=== PATIENT | female | born 1945 | race Two or more races ===

== ENCOUNTER 2019-09-15 15:06 | Inpatient (IN) | payer MEDICARE, MEDICAID ==
[~2019-09-15] VITALS: Ht 162.6 cm; Wt 64.0 kg
--- NOTE | 2019-09-15 15:10 | NUR ---
ED Nurse Note: Patient brought into ED from [facility] by RA 26 due to abnormal labs - hgb of 5.0. patient noted to be febrile, 99.9F oral and 100.[address] Mo. Patient placed on a hospital gown. Patient on a environmental monitoring specialist. patient on a room air O2 sat was 70's, patient is now on 3L NC, patient's O2 sat is 100%. patient noted to be edematous on bilateral upper extremities. 22G IV site noted on the right hand, patent, flushing. patient has abdoulaye on the left upper arm due to left humurs fracture noted from the medical records. patient also noted to have left breast lump/mass noted. patient appears to be lethargic, opens eyes spontaneously, but does not answer question appropriately.
[2019-09-15] MEDS ORDERED: COLACE100 MG ORAL (15:13)
[2019-09-15] MEDS ORDERED: ACETAMINOPHEN325 M1 ORAL (15:13)
[2019-09-15] MEDS ORDERED: AVAPRO150 MG ORAL (15:13)
[2019-09-15] MEDS ORDERED: MILK OF MA2400 MG/10 ORAL (15:24)
[2019-09-15] MEDS ORDERED: NEXIUM40 MG ORAL (15:24)
[2019-09-15] MEDS ORDERED: HUMALOG100 UNIT/4 SUBQ (15:24)
[2019-09-15] MEDS ORDERED: GABAPENTIN100 MG ORAL (15:24)
[2019-09-15] MEDS ORDERED: SENNA-S TABLET1 EACH PO (15:24)
[2019-09-15] MEDS ORDERED: MAGNESIUM CITR296 M1 PO (15:24)
[2019-09-15] MEDS ORDERED: GLUCAGON EMERGEN1 MG IJ (15:24)
[2019-09-15] MEDS ORDERED: JANUVIA25 MG ORAL (15:24)
[2019-09-15] MEDS ORDERED: BISACODYL5 MG ORAL (15:24)
[2019-09-15] MEDS ORDERED: LACTULOSE20 GM/301 ORAL (15:24)
[2019-09-15 15:38] VITALS: BP 102/58
--- NOTE | 2019-09-15 15:41 | NUR ---
ED Nurse Note: xray at bedside.
[2019-09-15 15:48] LABS: HEMATOCRIT 16.9 % (37.0-47.0); MEAN CORPUSCULAR VOLUME 81 FL (80-99); PLATELET COUNT 251 K/UL (150-450); RED BLOOD COUNT 2.09 M/UL (4.20-5.40); WHITE BLOOD COUNT 11.3 K/UL (4.8-10.8)
--- NOTE | 2019-09-15 15:53 | Emergency Room Report ---
History of Present Illness General Chief Complaint: Abnormal Labs Source: Patient Present Illness HPI This patient presents from a sn[facility] facility. The patient has multiple chronic medical problems. The patient recently is found to have metastatic breast cancer and profound anemia related to a bleeding polyp in her duodenum. She also recently suffered a pathologic fracture of her humerus and had to undergo ORIF. The patient presents today from the snf facility for worsening anemia and ams. Per report, the patient's hemoglobin was 6.2 and then 5.0. The patient is a very poor historian and is unable to give me any type of history. I am unsure if this is baseline for this patient or if this is related to an acute illness. The patient is febrile. She also presents from a snf facility which is high risk for COVID-19. Allergies: Coded Allergies: No Known Allergies (Unverified , 09/15/19) COVID-19 Screening Contact w/high risk pt: Yes Recent Travel to affected area: No Experienced COVID-19 symptoms?: Yes COVID-19 symptoms experienced: Fever (T>100.4F or >38C) COVID-19 Testing performed SLOPE HOIST OPERATOR: No Patient History Past Medical History: see triage record, DM, HTN, seizures, other - Metastatic breast CA Social History: Denies: smoking, alcohol use, drug use Reviewed Nursing Documentation: PMH: Agreed; PSxH: Agreed Nursing Documentation-PMH Past Medical History: No History, Except For Hx Hypertension: Yes Hx Diabetes: Yes Hx Seizures: Yes Review of Systems All Other Systems: limited Physical Exam Vital Signs Date Time Temp Pulse Resp B/P (MAP) Pulse Ox O2 Delivery O2 Flow Rate FiO2 09/15/19 15:06 100.6 107 16 83/42 (56) 95 Room Air Sp02 EP Interpretation: reviewed, abnormal General Appearance: no apparent distress, GCS 15, non-toxic, other - Awake, responsive., Chronically Ill Head: normocephalic, atraumatic ENT: no angioedema Neck: normal inspection, full range of motion Respiratory: chest non-tender, lungs clear, normal breath sounds, no respiratory distress, no retraction, no accessory muscle use Cardiovascular #1: no edema, tachycardia Gastrointestinal: normal inspection, non-distended Rectal: deferred Musculoskeletal: back normal, normal range of motion, swelling - BUE swelling Neurologic: alert, responsive, speech normal, no focal defects Psychiatric: mood/affect normal Skin: other - Pale Medical Decision Making Diagnostic Impression: Primary Impression: Suspected 2019 novel coronavirus infection Additional Impressions: Anemia Metastatic cancer Fever Azotemia GI bleed Hypernatremia ER Course I suspect this patient has COVID-19. The patient is febrile in from a high risk facility. She has findings on chest x-ray that are concerning for COVID- 19. She also has an underlying metastatic cancer and progressive anemia that is believed to be related to a bleeding polyp that had been previously identified as a bleeding source. The patient was given gentle IV fluids and started on a blood transfusion. The patient's pulmonary status remained stable only requiring 3 L of nasal cannula to maintain oxygen saturations at 100%. The patient was given broad-spectrum antibiotics for possible bacterial pneumonia, given that the COVID-19 test is pending. Given this patient's terminal cancer and multiple chronic medical problems, she has a very poor prognosis. This patient is critically ill. This patient required complex medical decision- making, aggressive intervention, extensive laboratory workup and monitoring. Critical care time: 40 minutes. This patient was evaluated in the context of the global COVID-19 pandemic, which necessitated consideration that the patient might be at risk for infection with the [id number] virus that causes COVID-19. Institutional protocols and algorithms that pertain to the evaluation of patients at risk for COVID-19 and the state of rapid change based on information released by multiple regulatory bodies including the CDC and federal and state organizations. These policies and algorithms were followed during the patient' s care in the ED. Laboratory Tests Test 09/15/19 15:20 09/15/19 15:24 Urine Color Pending Urine Appearance Pending Urine pH Pending Urine Specific [place] Pending Urine Protein Pending Urine Glucose (UA) Pending Urine Ketones Pending Urine Blood Pending Urine Nitrite Pending Urine Bilirubin Pending Urine Urobilinogen Pending Urine Leukocyte Esterase Pending White Blood Count 11.3 K/UL (4.8-10.8) H Red Blood Count 2.09 M/UL (4.20-5.40) L Hemoglobin 5.2 G/DL (12.0-16.0) *L Hematocrit 16.9 % (37.0-47.0) L Mean Corpuscular Volume 81 FL (80-99) Mean Corpuscular Hemoglobin 25.0 PG (27.0-31.0) L Mean Corpuscular Hemoglobin Concent 31.0 G/DL (32.0-36.0) L Red Cell Distribution Width 23.0 % (11.6-14.8) H Platelet Count 251 K/UL (150-450) Mean Platelet Volume 7.1 FL (6.5-10.1) Neutrophils (%) (Auto) % (45.0-75.0) Lymphocytes (%) (Auto) % (20.0-45.0) Monocytes (%) (Auto) % (1.0-10.0) Eosinophils (%) (Auto) % (0.0-3.0) Basophils (%) (Auto) % (0.0-2.0) Neutrophils % (Manual) Pending Lymphocytes % (Manual) Pending Platelet Estimate Pending Platelet Morphology Pending Prothrombin Time 12.8 SEC (9.30-11.50) H Prothrombin Time INR 1.2 (0.9-1.1) H Activated Partial Thromboplast Time 23 SEC (23-33) D-Dimer 13.50 mg/L FEU (0.00-0.49) H Sodium Level 148 MMOL/L (136-145) H Potassium Level 4.3 MMOL/L (3.5-5.1) Chloride Level 112 MMOL/L (98-107) H Carbon Dioxide Level 22 MMOL/L (21-32) Anion Gap 14 mmol/L (5-15) Blood Urea Nitrogen 82 mg/dL (7-18) H Creatinine 1.3 MG/DL (0.55-1.30) Estimated Glomerular Filtration Rate 40.1 mL/min (>60) Glucose Level 222 MG/DL (74-106) H Lactic Acid Level 3.20 mmol/L (0.4-2.0) H Calcium Level 8.4 MG/DL (8.5-10.1) L Phosphorus Level 4.8 MG/DL (2.5-4.9) Magnesium Level 2.3 MG/DL (1.8-2.4) Total Bilirubin 0.3 MG/DL (0.2-1.0) Aspartate Amino Transferase (AST) 254 U/L (15-37) H Alanine Aminotransferase (ALT) 23 U/L (12-78) Alkaline Phosphatase 262 U/L (46-116) H Total Creatine Kinase 262 U/L (26-308) Creatine Kinase MB < 0.5 NG/ML (0.0-3.6) Creatine Kinase MB Relative Index 0.1 Troponin I 0.022 ng/mL (0.000-0.056) C-Reactive Protein, Quantitative Pending Total Protein 5.4 G/DL (6.4-8.2) L Albumin 1.9 G/DL (3.4-5.0) L Globulin 3.5 g/dL Albumin/Globulin Ratio 0.5 (1.0-2.7) L EKG Diagnostic Results Rate: normal Rhythm: NSR ST Segments: no acute changes Rhythm Strip Diag. Results EP Interpretation: yes Rate: 100's Rhythm: no PVC's, no ectopy, other - S.tachycardia Chest X-Ray Diagnostic Results Chest X-Ray Diagnostic Results : Chest X-Ray Ordered: Yes # of Views/Limited/Complete: 1 View Indication: Shortness of Breath EP Interpretation: Yes Interpretation: other - Diffuse patchy opacites bilaterally. Circular luceny in the RLL of the lung. +fluid in fissures of the R. Impression: Other - See Above Electronically Signed by: Juliana Mo DO Last Vital Signs Date Time Temp Pulse Resp B/P (MAP) Pulse Ox O2 Delivery O2 Flow Rate FiO2 09/15/19 15:38 99.9 101 15 102/58 100 Room Air Disposition: ADMITTED INPATIENT Condition: Critical Referrals: NON PHYSICIAN (PCP) Juliana Mo DO September 15, 2019 15:53
--- NOTE | 2019-09-15 15:56 | NUR ---
ED Nurse Note: daughter Denia [phone]
[2019-09-15 16:00] LABS: INR 1.2 (0.9-1.1)
[2019-09-15] MEDS ORDERED: Acetaminophen 500mg (ES) tab ORAL ONE (16:00)
[2019-09-15] MEDS ORDERED: Azithromycin 500 MG in NS 275 ML IV ONE (16:00)
[2019-09-15] MEDS ORDERED: cefTRIAXone 1 GM in NS 55 ML IVPB ONE (16:00)
[2019-09-15 16:05] LABS: HEMOGLOBIN 5.2 G/DL (12.0-16.0)
[2019-09-15 16:07] LABS: ANION GAP 14 mmol/L (5-15); BLOOD UREA NITROGEN 82 mg/dL (7-18); CALCIUM 8.4 MG/DL (8.5-10.1); CARBON DIOXIDE 22 MMOL/L (21-32); CHLORIDE 112 MMOL/L (98-107); CREATININE 1.3 MG/DL (0.55-1.30); POTASSIUM 4.3 MMOL/L (3.5-5.1); SODIUM 148 MMOL/L (136-145)
[2019-09-15 16:20] LABS: ALANINE AMINOTRANSFERASE 23 U/L (12-78); ALBUMIN 1.9 G/DL (3.4-5.0); ALBUMIN/GLOBULIN RATIO 0.5 (1.0-2.7); ALKALINE PHOSPHATASE 262 U/L (46-116); ASPARTATE AMINO TRANSFERASE 254 U/L (15-37); BILIRUBIN,TOTAL 0.3 MG/DL (0.2-1.0); CKMB < 0.5 NG/ML (0.0-3.6); CREATINE KINASE 262 U/L (26-308); PHOSPHORUS 4.8 MG/DL (2.5-4.9)
--- NOTE | 2019-09-15 16:20 | NUR ---
ED Nurse Note: VRE/CRE swab and MRSA swab done. patient had 1 soft bm, cleaned, kept dry.
[2019-09-15] MEDS ORDERED: Pantoprazole Inj IVP ONE (16:30)
[2019-09-15] MEDS ORDERED: Pantoprazole 80 MG in NS 250 ML IV ONE (16:30)
[2019-09-15] MEDS ORDERED: Pantoprazole Inj ONE (16:59)
[2019-09-15 17:09] LABS: APPEARANCE,URINE SLIGHTLY CLOUDY; BILIRUBIN, URINE NEGATIVE (NEGATIVE); COLOR,URINE YELLOW; GLUCOSE, URINE (UA) NEGATIVE (NEGATIVE); KETONES,URINE 1+ (NEGATIVE); LEUKOCYTE ESTERASE ,URINE 1+ (NEGATIVE); NITRITE,URINE NEGATIVE (NEGATIVE); PH,URINE 5 (4.5-8.0); PROTEIN,URINE 1+ (NEGATIVE); UROBILINOGEN,URINE 1 MG/DL (0.0-1.0)
--- NOTE | 2019-09-15 17:26 | Diagnostic Imaging Report ---
Indication: Cough Technique: One view of the chest Comparison: none Findings: Bilateral left greater than right interstitial and airspace disease is noted. There is probably some pleural fluid on the left. There is pleural fluid versus thickening on the right. The heart size is upper limits normal. Impression: Bilateral Left-sided pleural effusion left greater than right interstitial and airspace infiltrates versus edema
[2019-09-15 18:50] VITALS: BP 102/45
--- NOTE | 2019-09-15 18:50 | NUR ---
ED Nurse Note: blood transfusion started with stable vital signs.
--- NOTE | 2019-09-15 19:05 | NUR ---
ED Nurse Note: patient is tolerating blood transfusion with stable vital signs.
--- NOTE | 2019-09-15 19:06 | NUR ---
ED Nurse Note: blood transfusion rate is adjusted to 125ml/hr, patient tolerating without complications.
--- NOTE | 2019-09-15 19:15 | NUR ---
ED Nurse Note: Received report from COLLIN Dixon. Patient resting in bed, no acute distress noted. 1 unit packed RBC running.
--- NOTE | 2019-09-15 19:15 | NUR ---
HAND-OFF: Report given to Annette POLANCO, endorsed all plan of care to Annette.
[2019-09-15 19:38] VITALS: BP 101/40
[2019-09-15 21:35] VITALS: BP 98/45
--- NOTE | 2019-09-16 00:40 | NUR ---
ED Nurse Note: Report given to COLLIN Doan.
[2019-09-16 00:45] VITALS: BP 122/62
--- NOTE | 2019-09-16 00:45 | NUR ---
TRANSFER TO FLOOR: Patient transferred to SDU as ordered, per ERMD. Report given to COLLIN Doan. Patient transported via gurney on ACLS protocol on director of cardiac rehabilitation accompanied by 1 RN and information technology project manager in stable condition.
--- NOTE | 2019-09-16 00:45 | NUR ---
NURSE NOTES: Pt was transported from ED to SDU via gurney without incident. Received patient and report from COLLIN Christianson. Patient is observed resting in bed and remains alert and oriented x2-3. No pain noted upon assessment. Pt is currently on 3L NC with an O2 saturation of 96% noted. Pt appears to be tolerating O2 therapy well. Bilateral lower lobe breath sounds noted to be diminished upon auscultation. Pt noted to be SR on tele monitor with a HR of 90 with no s/sx of acute distress. L Hand 20g and R Hand 22g IV catheters remains intact, patent and asymptomatic. Diagnostics reviewed. No pressure injuries noted; pt admitted with surgical sites on Left upper arm r/t humerus fx repair, abdoulaye remain intact and incision site is free from s/sx of infection. Fall, Aspiration, Seizure and Skin precautions observed. Pt remains resting in bed; Bed remains in the lowest position with the safety wheels engaged, call light within reach, side rails up x3 and bed alarm activated. Will continue plan of care. Will continue to monitor.
--- NOTE | 2019-09-16 01:25 | NUR ---
NURSE NOTES: Called and spoke with Dr Mckee regarding admission orders. Discussed pt history and current condition. Orders obtained to continue at home medications, continue diet from SNF and CBC in morning. No further orders at this time. Will carry out orders. Will continue to monitor.
[2019-09-16 04:00] VITALS: BP 112/60
--- NOTE | 2019-09-16 04:00 | NUR ---
NURSE NOTES: Pt provided with a bed bath and ROM exercises per pt tolerance. Pt tolerated care well. Fall, Aspiration, Seizure and Skin precautions observed. Pt remains resting in bed; Bed remains in the lowest position with the safety wheels engaged, call light within reach, side rails up x3 and bed alarm activated. Will continue plan of care. Will continue to monitor.
[2019-09-16 05:41] LABS: HEMATOCRIT 22.2 % (37.0-47.0); HEMOGLOBIN 7.4 G/DL (12.0-16.0); MEAN CORPUSCULAR VOLUME 79 FL (80-99); PLATELET COUNT 217 K/UL (150-450); RED BLOOD COUNT 2.79 M/UL (4.20-5.40); WHITE BLOOD COUNT 9.8 K/UL (4.8-10.8)
[2019-09-16] MEDS: sitaGLIPtin 50mg tab ORAL SCH (06:30)
[2019-09-16] MEDS ORDERED: Lactulose 20gm/30ml UDC ORAL PRN (06:30)
[2019-09-16] MEDS: NovoLOG Insulin Flexpen SUBQ SCH ×4 (06:46→20:24)
--- NOTE | 2019-09-16 06:52 | NUR ---
NURSE NOTES: Pt refuses insulin; states she doesnt like needles. Pt provided with education but continues to refuse. Fall, Aspiration, Seizure and Skin precautions observed. Pt remains resting in bed; Bed remains in the lowest position with the safety wheels engaged, call light within reach, side rails up x3 and bed alarm activated. Will continue plan of care. Will continue to monitor.
--- NOTE | 2019-09-16 07:17 | NUR ---
NURSE NOTES: Received report from COLLIN Doan. Patient is resting in bed, in stable condition. No s/sx of SOB, breathing is even and unlabored. Patient is sleeping, observed no presence of pain or discomfort at this time. Bed is in lowest position, brakes engaged. Call light is kept within easy reach. Will continue to monitor patient.
--- NOTE | 2019-09-16 07:20 | NUR ---
NURSE NOTES: Received report from COLLIN Doan. Patient is resting in bed, in stable condition. No s/sx of SOB, breathing is even and unlabored. Per night nurse report, Dr. Mckee is aware of D-dimer 13.50 and Lactic acid of 3.30, no new orders were given. Patient is sleeping, observed no presence of pain or discomfort at this time. Bed is in lowest position, brakes engaged. Call light is kept within easy reach. Will continue to monitor patient.
--- NOTE | 2019-09-16 07:25 | NUR ---
HAND-OFF: Report given to COLLIN Potter. Pt remains stable at this time.
[2019-09-16 08:00] VITALS: BP 122/54
[2019-09-16] MEDS ORDERED: Docusate 100mg cap ORAL SCH ×2 (09:00→13:00)
--- NOTE | 2019-09-16 09:52 | NUR ---
*-* INSURANCE *-* AVAILABLE CLINICALS HAVE BEEN FAXED TO: [facility] [phone] FAX [phone] Work *-* NO INSURANCE IN HE BAR SENDING SENT TO [facility] ON FACE SHEET *-*
--- NOTE | 2019-09-16 10:38 | NUR ---
NURSE NOTES: Called Dr. Mckee's office to follow up regarding abnormal lab values, this nurse spoke with Alex, arturo Mckee is not in office at this time; left message, per Alex to call back at 1300 hours. Noted. BP 122/62 HR 82, temperature 98.4F axillary, SpO2 95% on 3L NC. Will continue to monitor patient.
--- NOTE | 2019-09-16 10:50 | NUR ---
NURSE NOTES: Dr. Mckee at nurse station, made Dr. Mckee aware of patient's hemoglobin level of 7.[address] Mckee acknowledged and ordered to transfuse 2 units of PRBC. Order entered and noted. Also made Dr. Mckee aware of D-dimer of 13.50 and HgbA1C of 5.9. Dr. Mckee acknowledged and gave no new orders regarding D-dimer and hgbA1C. Noted. Will continue to monitor patient.
[2019-09-16 12:00] VITALS: BP 143/59
--- NOTE | 2019-09-16 12:27 | NUR ---
CASE MANAGEMENT: REVIEW 74 YEAR OLD FEMALE BIBA FROM [facility] CC: ABNORMAL LABS . HX METASTATIC BREAST CA . PATHOLOGIC HUMERUS FRACTURE SI: ANEMIA . COVID-19 SCREENING T 100.6 HR 107 RR 16 BP 83/42 SAT 100% NC/3L WBC 11.3 H/H 5.2/16.9 LACTIC ACID 3.30 D-DIMER 13.50 IS: PROTONIX IV X1 AZITHROMYCIN IV X1 NS IVF BOLUS X1 CEFTRIAXONE IV X1 TYLENOL 1,000MG PO X1 PATIENT ADMITTED TO STEP DOWN UNIT 09/15/2019 DCP: PATIENT IS FROM [facility]
[2019-09-16] MEDS: Docusate 100mg cap ORAL SCH ×2 (13:00→17:21)
[2019-09-16 13:14] LABS: % IRON SATURATION 19 % (15-50); IRON 28 ug/dL (50-175); TOTAL IRON BINDING CAPACITY 151 ug/dL (250-450)
[2019-09-16 13:27] LABS: FERRITIN 1084 NG/ML (8-388)
[2019-09-16] MEDS: HYDROcodone/Acetamin 10/325 tab ORAL PRN (13:47)
--- NOTE | 2019-09-16 14:00 | NUR ---
NURSE NOTES: Patient is unable to sign documents at this time. Contacted next of kin, per Apryl Dawn, sister, martha to request medical release form from [facility] regarding EGD, Biopsy, and pathology. Per sister, they spoke with Dr. Gutiérrez regarding patient care. COLLIN Vance second witness to patient's sister consent for [facility] to received medical information.
[2019-09-16] MEDS ORDERED: Vancomycin 1.25gm/NS Premix 275 ML IVPB SCH (15:00)
--- NOTE | 2019-09-16 15:03 | Consultation ---
Consult Note Consult Note I am asked to evaluate the patient at the request of Dr. Mckee for renal failure electrolyte imbalances. Patient was seen in room [address]. RN Eduardo available in the room. Patient is . Emergency room note: Chief Complaint: Abnormal Labs This patient presents from a [facility] facility. The patient has multiple chronic medical problems. The patient recently is found to have metastatic breast cancer and profound anemia related to a bleeding polyp in her duodenum. She also recently suffered a pathologic fracture of her humerus and had to undergo ORIF. The patient presents today from the [facility] facility for worsening anemia and ams. Per report, the patient's hemoglobin was 6.2 and then 5.0. The patient is a very poor historian and is unable to give me any type of history. I am unsure if this is baseline for this patient or if this is related to an acute illness. The patient is febrile. She also presents from a [facility] facility which is high risk for COVID-19. No Known Allergies (Unverified , 09/15/19) COVID-19 Screening Contact w/high risk pt: Yes Recent Travel to affected area: No Experienced COVID-19 symptoms?: Yes COVID-19 symptoms experienced: Fever (T>100.4F or >38C) COVID-19 Testing performed WEB SITE ADMINISTRATOR: No Past Medical History: see triage record, DM, HTN, seizures, other - Metastatic breast CA Social History: Denies: smoking, alcohol use, drug use Reviewed Nursing Documentation: PMH: Agreed; PSxH: Agreed Past Medical History: No History, Except For Hx Hypertension: Yes Hx Diabetes: Yes Hx Seizures: Yes Patient examined. Labs reviewed. No old records as is the first hospitalization of the patient here at [facility]. . Assessment/Plan This patient is 74-year-old female who presents with fever and is a [facility] residence in which there is a high risk of COVID-19 renal failure, most likely prerenal azotemia secondary to GI bleed, Hypernatremia most likely secondary to dehydration Severe anemia most likely due to GI bleed, patient has history of bleeding polyp in her duodenum. Metastatic breast cancer. Pathological fracture of the humerus had to undergo ORIF History of hypertension History of diabetes mellitus History of seizures Possible UTI Severe hypoalbuminemia Chest x-ray: Left-sided pleural effusion left greater than right interstitial and airspace infiltrates versus edema Suggestions: Kellogg catheter Slow hydration with one half normal saline 50 cc an hour Monitor renal parameters, hemoglobin, urine output Keep the blood pressure and blood sugar in check Per orders I spent an additional 36 minutes on review of medical records including prior hospital records,consult notes, progress notes, procedures ,imaging labs, hemodynamics, and other clinical documentation. gIgy Basilio MD September 16, 2019 15:03
--- NOTE | 2019-09-16 15:21 | NUR ---
NURSE NOTES: Urine sample delivered to lab. Noted.
--- NOTE | 2019-09-16 15:43 | NUR ---
NURSE NOTES: Faxed medical release form request to [facility], , per request of Dr. Gutiérrez regarding EGD, biopsy, and pathology. Awaiting reply. Will continue to monitor patient.
[2019-09-16 16:00] VITALS: BP 124/59
--- NOTE | 2019-09-16 19:26 | NUR ---
HAND-OFF: Report given to COLLIN Arenas.
--- NOTE | 2019-09-16 19:33 | Infectious Diseases Prog Note ---
Assessment/Plan Assessment/Plan Full consult dictated: A) 1) possible covid-19 virus infection with pna, gram + bacteremia, sepsis 2) ? aspiration pna/hcap/cap pna 3) fevers, leukocytosis 4) pmh noted 5) allergies - nkda P) 1) zosyn and vancomycin 2) f/u on covid-19 testing, labs, cultures and chest x-ray 3) thank you Subjective Allergies: Coded Allergies: No Known Allergies (Unverified , 09/15/19) Objective Vital Signs Last 24 Hour Vital Signs Date Time Temp Pulse Resp B/P (MAP) Pulse Ox O2 Delivery O2 Flow Rate FiO2 09/16/19 16:00 99.2 83 20 124/59 (80) 97 09/16/19 16:00 3.0 09/16/19 16:00 88 09/16/19 15:19 Nasal Cannula 3.0 09/16/19 12:00 90 09/16/19 12:00 Nasal Cannula 3.0 09/16/19 12:00 100.2 92 20 143/59 (87) 94 09/16/19 12:00 3.0 09/16/19 09:00 98.4 09/16/19 08:00 92 09/16/19 08:00 100.4 93 20 122/54 (76) 96 09/16/19 08:00 3.0 09/16/19 08:00 Nasal Cannula 3.0 09/16/19 04:00 Nasal Cannula 3.0 09/16/19 04:00 3.0 09/16/19 04:00 97.7 80 22 112/60 (77) 96 09/16/19 03:29 90 09/16/19 03:29 Nasal Cannula 3.0 09/16/19 01:01 86 09/16/19 00:45 97.8 89 24 122/62 (82) 95 09/16/19 00:45 97.9 89 24 107/45 100 Nasal Cannula 3.0 09/15/19 21:50 98.7 93 25 09/15/19 21:35 98.5 92 20 09/15/19 21:35 98.5 92 20 98/45 100 Nasal Cannula 3.0 09/15/19 19:38 93 21 101/40 100 Nasal Cannula 3.0 Height (Feet): 5 Height (Inches): 4.00 Weight (Pounds): 141 Microbiology Date/Time Source Procedure Growth Status 09/15/19 15:45 Blood Blood Culture - Preliminary Resulted 09/15/19 15:45 Urine,Clean Catch Urine Culture - Preliminary NO GROWTH Resulted 09/15/19 15:45 Rectum Received Laboratory Tests Test 09/16/19 04:45 09/16/19 09:25 09/16/19 09:30 09/16/19 15:02 White Blood Count 9.8 K/UL (4.8-10.8) Red Blood Count 2.79 M/UL (4.20-5.40) L Hemoglobin 7.4 G/DL (12.0-16.0) #L Hematocrit 22.2 % (37.0-47.0) #L Mean Corpuscular Volume 79 FL (80-99) L Mean Corpuscular Hemoglobin 26.5 PG (27.0-31.0) L Mean Corpuscular Hemoglobin Concent 33.3 G/DL (32.0-36.0) Red Cell Distribution Width 17.0 % (11.6-14.8) H Platelet Count 217 K/UL (150-450) Mean Platelet Volume 5.1 FL (6.5-10.1) L Neutrophils (%) (Auto) % (45.0-75.0) Lymphocytes (%) (Auto) % (20.0-45.0) Monocytes (%) (Auto) % (1.0-10.0) Eosinophils (%) (Auto) % (0.0-3.0) Basophils (%) (Auto) % (0.0-2.0) Hemoglobin A1c 5.9 % (4.3-6.0) Lactic Acid Level 2.00 mmol/L (0.4-2.0) Iron Level 28 ug/dL (50-175) L Total Iron Binding Capacity 151 ug/dL (250-450) L Percent Iron Saturation 19 % (15-50) Unsaturated Iron Binding 123 ug/dL (112-346) Ferritin 1084 NG/ML (8-388) H Urine Random Sodium < 20 mmol/L (20-110) L Current Medications Medications (Trade) Dose Ordered Sig/Galina Route PRN Reason Start Time Stop Time Status Last Admin Dose Admin Acetaminophen (Tylenol) 650 mg Q6H PRN ORAL For Headache 09/16/19 06:30 10/16/19 06:29 09/16/19 16:16 Acetaminophen (Tylenol) 650 mg Q6H PRN ORAL Temp >100.5 09/16/19 18:30 10/16/19 18:29 Acetaminophen/ Hydrocodone Bitart ([place] 10/325) 1 tab Q4H PRN ORAL For Severe Pain 09/16/19 06:30 09/23/19 06:29 09/16/19 13:47 Bisacodyl (Dulcolax) 5 mg DAILYPRN PRN RECTAL Constipation 09/16/19 06:30 12/15/19 06:29 Dextrose (Dextrose 50%) 25 ml Q30M PRN IV Hypoglycemia 09/16/19 06:30 12/15/19 06:29 Dextrose (Dextrose 50%) 50 ml Q30M PRN IV Hypoglycemia 09/16/19 06:30 12/15/19 06:29 Docusate Sodium (Colace) 100 mg TID ORAL 09/16/19 13:00 10/16/19 12:59 Gabapentin (Neurontin) 300 mg THREE TIMES A DAY ORAL 09/16/19 09:00 10/16/19 08:59 09/16/19 18:07 Insulin Aspart (NovoLOG) BEFORE MEALS AND HS SUBQ 09/16/19 07:30 12/15/19 07:29 Lactulose (Cephulac) 20 gm FOUR TIMES A DAY PRN ORAL Constipation if colace is inef 09/16/19 06:30 10/16/19 06:29 Ondansetron HCl (Zofran ODT) 4 mg Q8H PRN ORAL Nausea & Vomiting 09/16/19 06:30 10/16/19 06:29 Pantoprazole (Protonix) 40 mg BID ORAL 09/16/19 18:00 10/16/19 17:59 09/16/19 18:07 Sennosides (Senokot) 8.6 mg QHS ORAL 09/16/19 21:00 10/16/19 20:59 Sitagliptin Phosphate (Januvia) 50 mg ACBREAKFAST ORAL 09/16/19 06:30 10/16/19 06:29 Sodium Chloride 1,000 ml @ 50 mls/hr Q20H IV 09/16/19 13:00 10/16/19 12:59 09/16/19 13:22 Vancomycin HCl (Vanco pharmacy to dose) 1 ea DAILY PRN MISC Per rx protocol 09/16/19 12:15 10/16/19 12:14 Vancomycin HCl 1 gm/Dextrose 275 ml @ 183.708 mls/hr Q24H IVPB 09/17/19 15:00 09/22/19 14:59 Jarad Lund MD September 16, 2019 19:33
--- NOTE | 2019-09-16 19:45 | NUR ---
NURSE NOTES: Pt received from COLLIN Clark alert and oriented x3 to name, place, and purpose, primarily Czech-speaking with no acute s/s of distress noted. On 3L NC, saturating at 96%. security monitor on - Sinus Rhythm (74). IV site on L hand 22g, flushing and patent but L hand has noted non-pitting edema. R wrist 20 g, asymptomatic and patent, running to 1 unit of PRBC. Bed in lowest position, call light and belongings within reach. Per AM nurse, med record request faxed to [facility], confirmation noted in chart.
[2019-09-16 20:00] VITALS: BP 122/51
--- NOTE | 2019-09-16 20:00 | History and Physical Report ---
DATE OF ADMISSION: 09/16/2019 HISTORY OF PRESENT ILLNESS: This is a 74-year-old retirement resident with history of metastatic breast carcinoma. She has been found to have GI bleeding in the past due to bleeding polyp in the duodenum. She also has recently undergone a open reduction internal fixation due to pathological fracture of her humerus. The patient presented with change in mental status and anemia. She was found to have a low hemoglobin of 5. She has been transfused one unit, hemoglobin 7. She has been ordered further transfusion. The patient unable to provide any further history. 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 PAST MEDICAL HISTORY: Diabetes mellitus, hypertension, seizure disorder, metastatic breast carcinoma. PAST SURGICAL HISTORY: Right humerus ORIF. HOME MEDICATIONS: Include Tylenol, Colace, gabapentin, [place], lactulose, Zofran, and Januvia. REVIEW OF SYSTEMS: Unreliable. PHYSICAL EXAMINATION: GENERAL: Reveals elderly female. VITAL SIGNS: Blood pressure 140/60, heart rate 94, respiratory rate 18, afebrile, O2 saturation 93% on room air and 96% on 3 liters of oxygen. T-max 100.2. HEENT: Unremarkable. CHEST: Clear breath sounds bilaterally. ABDOMEN: Soft. EXTREMITIES: There is no edema. LABORATORY DATA: Lab testing shows hemoglobin 5.2, now 7.4, white count 9.8, platelet count is normal. Chemistries showed lactic acid 3.3 now. Sodium 148, chloride 112, glucose 222. Coags, D-dimer . INR 1.2. Urinalysis shows few wbc's. IMAGING STUDIES: X-ray chest obtained, which shows pleural effusion left side as well as right-sided pneumonia. IMPRESSION: 1. Right lung pneumonia. 2. Left pleural effusion. 3. History of breast carcinoma. 4. Severe anemia. 5. History of previous GI bleed. 6. Diabetes mellitus. 7. Hypertension. DISCUSSION: Admit to the hospital. We will transfuse. We will start broad-spectrum antibiotics. Consult ID. Continue home medications. Consult GI as well as Hematology. We will follow carefully. Zbigniew Mckee M.D. DR: Feliciano JOB#: [id number] CC: LORENA
[2019-09-16] MEDS: Sennosides 8.6mg tab ORAL SCH (20:24)
--- NOTE | 2019-09-16 20:37 | General Progress Note ---
Assessment/Plan Assessment/Plan: GI CONSULT Dictated Assessment - Sever anemia - recent duodenal polyp bleed, ? details, ?? metastatic CA - Metastatic BRCA - r/o COVID - Poor px Recommendations - Consider addressing code status - RN to call and get endoscopy and pathology results from [facility] - daily CBC - IV IRON - IV PPI - r/o COVID - no endoscopy planned Thank you Pati Mclean MD Subjective Allergies: Coded Allergies: No Known Allergies (Unverified , 09/15/19) Objective Last 24 Hour Vital Signs Date Time Temp Pulse Resp B/P (MAP) Pulse Ox O2 Delivery O2 Flow Rate FiO2 09/16/19 20:00 3.0 09/16/19 20:00 98.4 87 20 122/51 (74) 97 09/16/19 16:00 99.2 83 20 124/59 (80) 97 09/16/19 16:00 3.0 09/16/19 16:00 88 09/16/19 15:19 Nasal Cannula 3.0 09/16/19 12:00 90 09/16/19 12:00 Nasal Cannula 3.0 09/16/19 12:00 100.2 92 20 143/59 (87) 94 09/16/19 12:00 3.0 09/16/19 09:00 98.4 09/16/19 08:00 92 09/16/19 08:00 100.4 93 20 122/54 (76) 96 09/16/19 08:00 3.0 09/16/19 08:00 Nasal Cannula 3.0 09/16/19 04:00 Nasal Cannula 3.0 09/16/19 04:00 3.0 09/16/19 04:00 97.7 80 22 112/60 (77) 96 09/16/19 03:29 90 09/16/19 03:29 Nasal Cannula 3.0 09/16/19 01:01 86 09/16/19 00:45 97.8 89 24 122/62 (82) 95 09/16/19 00:45 97.9 89 24 107/45 100 Nasal Cannula 3.0 09/15/19 21:50 98.7 93 25 09/15/19 21:35 98.5 92 20 09/15/19 21:35 98.5 92 20 98/45 100 Nasal Cannula 3.0 Intake and Output 09/15/19 09/16/19 19:00 07:00 Intake Total 780 ml Balance 780 ml Intake Oral 30 ml Blood Product 750 ml # Voids 1 # Bowel Movements 1 Laboratory Tests 09/16/19 04:45: White Blood Count 9.8, Red Blood Count 2.79L, Hemoglobin 7.4#L, Hematocrit 22.2# L, Mean Corpuscular Volume 79L, Mean Corpuscular Hemoglobin 26.5L, Mean Corpuscular Hemoglobin Concent 33.3, Red Cell Distribution Width 17.0H, Platelet Count 217, Mean Platelet Volume 5.1L, Neutrophils (%) (Auto) , Lymphocytes (%) (Auto) , Monocytes (%) (Auto) , Eosinophils (%) (Auto) , Basophils (%) (Auto) , Hemoglobin A1c 5.9 09/16/19 09:25: Lactic Acid Level 2.00 09/16/19 09:30: Iron Level 28L, Total Iron Binding Capacity 151L, Percent Iron Saturation 19, Unsaturated Iron Binding 123, Ferritin 1084H 09/16/19 15:02: Urine Random Sodium < 20L Height (Feet): 5 Height (Inches): 4.00 Weight (Pounds): 141 Pati Gutiérrez MD September 16, 2019 20:37
[2019-09-16] MEDS ORDERED: Iron Sucrose 100 MG in NS 55 ML IV SCH (21:00)
--- NOTE | 2019-09-16 21:26 | NUR ---
NURSE NOTES: Noted order of Venofer from Dr. Gutiérrez. RN communicated with Dr. Gutiérrez that patient is currently receiving 1 out of 2 units of PRBC ordered. Per Dr. Gutiérrez, ok to reschedule Venofer for tomorrow night 09/17/19 to avoid iron overload. Will carry out orders.
[2019-09-16] MEDS: Pantoprazole Inj IVP SCH (22:22)
[2019-09-16] MEDS: Sucralfate 1gm tab ORAL SCH (22:22)
--- NOTE | 2019-09-16 22:45 | Consultation ---
DATE OF CONSULTATION: 09/16/2019 CHIEF COMPLAINT: I was asked to see this patient by Dr. Zbigniew Mckee for evaluation of anemia. HISTORY OF PRESENT ILLNESS: The patient is a 74-year-old the woman with a history of metastatic breast cancer who was brought into the hospital from a snf due to altered mental status and anemia. The patient has been transfused and her blood level is better. There is no report of any melena or hematochezia. There is some chart reports of duodenal polyp which had bled in the past. However, details are not clear and the patient is a poor historian. I have discussed the patient's care with her sister, Apryl who believes the patient was admitted to [facility] recently but does not know any further details. The patient does have fever and has come for a snf, which has high risk for COVID-19 infection therefore, she is in isolation for evaluation of this possibility. PAST MEDICAL HISTORY: History of diabetes mellitus, hypertension, seizure disorder, metastatic breast cancer, pathologic fracture of the humerus, status post right humerus open reduction and internal fixation. MEDICATIONS: See the chart list for details. FAMILY HISTORY: Unavailable. SOCIAL HISTORY: The patient is from a snf and her sister looks after her affairs. She is single. She has no children, although, she has a boyfriend, but he is not involved in her care. REVIEW OF SYSTEMS: Otherwise negative. PHYSICAL EXAMINATION: GENERAL: Debilitated elderly woman seen in her room. HEENT: Normocephalic and atraumatic. Sclerae anicteric. NECK: Supple. CHEST: Revealed scattered rhonchi. CARDIOVASCULAR: Regular rate. ABDOMEN: Soft and flat. Good bowel sounds. There is no tenderness. EXTREMITIES: Revealed no edema. LABORATORY DATA: Noted. ASSESSMENT: This patient presents with significant degree of anemia which has been partially rectified with transfusion. She has no overt signs of gastrointestinal bleeding. However, chart the description of duodenal polyps, which is bleeding. The metastatic breast cancer, this can potentially be malignant . I have instructed the nurses to obtain outside records from the [facility] with respect to the patient's latest endoscopy. In the meantime, she should be supported with blood transfusion, intravenous iron, proton pump inhibitor, and Carafate. The patient's medical prognosis is relatively very poor given her metastatic breast cancer. The consideration can be made to be readdress her Code Status. RECOMMENDATIONS: Per above discussion and per orders in the chart. Thank you for asking me to participate in care of this patient. Pati Gutiérrez M.D. DR: Dev JOB#: [id number] CC: LORENA
[2019-09-17] VITALS: BP 121/64
--- NOTE | 2019-09-17 00:15 | Consultation ---
DATE OF CONSULTATION: 09/16/2019 INFECTIOUS DISEASE CONSULTATION CONSULTING PHYSICIAN: Jarad Lund MD. ATTENDING PHYSICIAN: Zbigniew Mckee MD. REFERRING PHYSICIAN: Zbigniew Mckee MD. REASON FOR CONSULTATION: Possible COVID-19 virus infection, sepsis, gram-positive bacteremia, pneumonia, leukocytosis, and fevers. CHIEF COMPLAINT: Patient's chief complaint coming in to the hospital is possible COVID-19 virus infection. HISTORY OF PRESENT ILLNESS: This is a 74-year-old female who presents to [facility]. Patient has a history of metastatic breast cancer. Clinically, she has fevers and at high risk for COVID-19 virus infection from an ECF. COVID-19 testing is pending. She is in isolation. She has pneumonia, fever, sepsis, leukocytosis, and gram-positive bacteremia. Infectious Disease consultation is requested. Patient is placed on Zosyn and Vanco. REVIEW OF SYSTEMS: CONSTITUTIONAL: Patient is alert, responsive, weak. She comes in with fevers. CARDIAC: No pressors. GASTROINTESTINAL: No nausea, vomiting, or diarrhea. GENITOURINARY: I do not see a Kellogg. PULMONARY: Mild shortness of breath. SKIN: No rash. NEUROLOGIC: No seizures. PAST MEDICAL HISTORY: Patient's past medical history includes the following. Patient has a past medical history of metastatic breast cancer, anemia, history of pathological fracture. She comes from an ECF. She has history of diabetes, hypertension, seizures. SOCIAL HISTORY: Negative for smoking, alcohol, or drug abuse. FAMILY HISTORY: Noncontributory. ALLERGIES: No known drug allergies. MEDICATIONS: Upon reviewing the MAR, she is on following medications. She is on Vanco and Zosyn. She is on Senokot, Tylenol, Protonix, Colace, insulin, hydrocodone, sitagliptin, Zofran, acetaminophen. Outside medications were noted and reconciliated. PHYSICAL EXAMINATION: VITAL SIGNS: Temperature maximum was 100.6, currently temperature is 99.2, pulse 83, respiratory rate 20, blood pressure 124/59, saturation 97% on 3 liters. GENERAL: Weak, responsive. HEAD AND NECK: Oral exam, no thrush. Eye exam, no icterus. Normocephalic. Neck is supple. HEART: Regular. No gallop or murmur. ABDOMEN: Soft. Positive bowel sounds. Nontender. LUNGS: Bilateral rhonchi and rales. SKIN: No rash. MUSCULOSKELETAL: No effusion. Legs without cellulitis. PERIPHERAL VASCULAR: No cyanosis or gangrene. GENITOURINARY: I do not see a Kellogg. LINE SITES: Without phlebitis. NEUROLOGIC: Generalized weakness, responsive. LABORATORY DATA: UA had 10 to 15 white blood cells. White count is 11.3 on admission, hemoglobin 5.2. Currently white count 9.8, hemoglobin 7.4. Creatinine is 1.3. Lactic acid is 3.2. UA 10 to 15 white blood cells. Blood and urine cultures were noted. Blood cultures, gram-positive organisms in both bottles, identification is pending. Urine culture is pending. Chest x-ray shows infiltrates bilaterally with effusion on the left greater than right and airspace disease versus edema. COVID-19 virus testing by PCR is pending. ASSESSMENT AND PLAN: 1. Possible COVID-19 virus infection with pneumonia, gram-positive bacteremia, UTI, sepsis, fevers, leukocytosis, possible aspiration healthcare-acquired pneumonia versus community-acquired pneumonia. Continue Zosyn and Vanco for gram-negative anaerobic and gram-positive coverage. Continue Vanco and Zosyn for sepsis, gram-positive bacteremia, UTI, pneumonia. Check cultures, labs, chest x-ray. Continue supportive care for COVID-19 virus infection and check testing. Continue COVID-19 virus isolation. Await PCR testing. Continue Vanco and Zosyn for sepsis, pneumonia, UTI, gram-positive bacteremia. Check cultures, labs, chest x-ray. 2. Possible COVID-19 virus infection. Await PCR testing. Patient in isolation. 3. Patient has history of metastatic breast cancer with pathologic fracture. 4. Anemia. 5. Diabetes. 6. Hypertension. 7. Seizure. 8. Diabetes and hypertension treatment per primary care team. 9. No known allergies. 10. Social history is negative. 11. Family history is noncontributory. 12. MAR was noted. 13. Case discussed with RN. 14. Continue treatment per primary consultants. 15. Orders were noted and entered. Jarad Lund M.D. DR: LINDA JOB#: [id number] CC:
--- NOTE | 2019-09-17 03:40 | NUR ---
NURSE NOTES: Pt's bilateral upper extremities, swollen with +3 pitting edema. IV on R hand swollen, unable to flush upon assessment. IV on R hand d/kati, with bilateral upper extremities elevated on pillow for comfort and to reduce swelling. Patient had bowel movement, bed bath given. OB stool collected and given to lab. Calazime cream applied to perineal area to prevent irritation. Pt encouraged to turn frequently for comfort and for skin protection.
[2019-09-17 04:00] VITALS: BP 117/62
--- NOTE | 2019-09-17 04:10 | NUR ---
NURSE NOTES: RN attempted to insert new IV line for patient, attempted twice unsuccessfully. Pt refused further tries, complains of pain on bilateral upper arms from surgical site on L arm and swollen arm on the right. RN communicated to Dr. Mckee, unable to insert new IV line. Per Dr. Mckee, pls insert PICC Line for patient. Will carry out orders.
[2019-09-17] MEDS: sitaGLIPtin 50mg tab ORAL SCH (05:24)
[2019-09-17] MEDS: NovoLOG Insulin Flexpen SUBQ SCH ×4 (05:24→20:06)
[2019-09-17] MEDS ORDERED: Lidocaine 1% Plain 30 ml INJ PRN (06:43)
[2019-09-17] MEDS ORDERED: Heparin1,000 units/500ml Premix(Conc:2 units/ml) IV PRN (06:44)
--- NOTE | 2019-09-17 07:35 | NUR ---
HAND-OFF: Report given to COLLIN Kirkpatrick. Plan of care endorsed.
[2019-09-17 08:00] VITALS: BP 123/56
--- NOTE | 2019-09-17 08:00 | NUR ---
NURSE NOTES: Recvd pt. Pt is AOx3, primarily Latvian-speaking on NC @ 2L with no sign of sob or resp distress 02 sat 95%. IV site on L hand 22g and R wrist 20 were removed due to pt complaining of pain at IV sites. Recvd order for picc placement. recvd consent from sister Apryl for PICC placement. Bed in lowest position, call light and belongings within reach.
[2019-09-17] MEDS: Pantoprazole Inj IVP SCH ×2 (08:44→20:03)
[2019-09-17] MEDS: Sucralfate 1gm tab ORAL SCH ×4 (08:44→20:03)
[2019-09-17] MEDS: Docusate 100mg cap ORAL SCH ×3 (08:44→17:30)
--- NOTE | 2019-09-17 09:15 | NUR ---
CASE MANAGEMENT:REVIEW 09/17/19 SI: SUSPECTED COVID 19 SEPSIS. BACTEREMIA. PNEUMONIA 97.9 90 16 123/56 95% ON 3L/NC IS: IV VANCOMYCIN Q24 IV ZOSYN Q8HRS IVF@50/HR IV VENOFER QHS IV PROTONIX Q12 CARAFATE PO QID NEURONTIN PO TID : STEP DOWN UNIT DCP: FROM [facility] PLAN: HEMATOLOGY/ONCOLOGY CONSULT CALLED PICC LINE PLACEMENT F/U ON PENDING COVID RESULTS CONTINUE IV ANTIBIOTICS
--- NOTE | 2019-09-17 09:58 | Nephrology Progress Note ---
Assessment/Plan Problem List: (1) DAVID (acute kidney injury) Assessment: Partly GI bleed (2) Hypernatremia Assessment: Partly dehydration (3) Anemia (4) GI bleed Assessment: Due to GI bleed (5) Metastatic cancer Assessment: Breast with bone metastasis (6) Suspected 2019 novel coronavirus infection (7) Hypoalbuminemia (8) DMII (diabetes mellitus, type 2) Assessment This patient is 74-year-old female who presents with fever and is a fdc residence in which there is a high risk of COVID-19 Renal failure, most likely prerenal azotemia secondary to GI bleed, Hypernatremia most likely secondary to dehydration Severe anemia most likely due to GI bleed, patient has history of bleeding polyp in her duodenum. Metastatic breast cancer. Pathological fracture of the humerus had to undergo ORIF History of hypertension History of diabetes mellitus History of seizures Possible UTI Severe hypoalbuminemia Plan Today's blood results pending as of the patient is hard to take blood from and is due for a PICC line. Meanwhile: Kellogg catheter Slow hydration with one half normal saline 50 cc an hour Monitor renal parameters, hemoglobin, urine output Keep the blood pressure and blood sugar in check Per orders Chest x-ray: Left-sided pleural effusion left greater than right interstitial and airspace infiltrates versus edema Subjective ROS Limited/Unobtainable: No Constitutional: Reports: malaise, weakness Objective Objective Last 24 Hour Vital Signs Date Time Temp Pulse Resp B/P (MAP) Pulse Ox O2 Delivery O2 Flow Rate FiO2 09/17/19 08:00 97.9 90 16 123/56 (78) 95 09/17/19 08:00 2.0 09/17/19 08:00 Nasal Cannula 3.0 09/17/19 04:00 Nasal Cannula 3.0 09/17/19 04:00 98.4 84 17 117/62 (80) 98 09/17/19 04:00 3.0 09/17/19 04:00 89 09/17/19 00:00 Nasal Cannula 3.0 09/17/19 00:00 98.2 84 17 121/64 (83) 98 09/17/19 00:00 82 09/17/19 00:00 3.0 09/16/19 20:10 96 Nasal Cannula 3.0 32 09/16/19 20:00 3.0 09/16/19 20:00 98.4 87 20 122/51 (74) 97 09/16/19 20:00 Nasal Cannula 3.0 09/16/19 19:22 85 09/16/19 16:00 99.2 83 20 124/59 (80) 97 09/16/19 16:00 3.0 09/16/19 16:00 88 09/16/19 15:19 Nasal Cannula 3.0 09/16/19 12:00 90 09/16/19 12:00 Nasal Cannula 3.0 09/16/19 12:00 100.2 92 20 143/59 (87) 94 09/16/19 12:00 3.0 Intake and Output 09/16/19 09/17/19 18:59 06:59 Intake Total 400 ml Output Total 600 ml 600 ml Balance -200 ml -600 ml Intake Oral 400 ml Output Urine Total 600 ml 600 ml # Bowel Movements 2 1 Laboratory Tests 09/16/19 15:02: Urine Random Sodium < 20L 09/17/19 05:00: Stool Occult Blood Positive Height (Feet): 5 Height (Inches): 4.00 Weight (Pounds): 141 General Appearance: lethargic Cardiovascular: tachycardia Respiratory/Chest: decreased breath sounds Abdomen: distended Iggy Basilio MD September 17, 2019 09:58
--- NOTE | 2019-09-17 11:39 | Pulmonology Progress Note ---
Subjective ROS Limited/Unobtainable: No Interval Events: Declined phlebotomy Constitutional: Reports: no symptoms HEENT: Repors: no symptoms Respiratory: Reports: no symptoms Cardiovascular: Reports: no symptoms Gastrointestinal/Abdominal: Reports: no symptoms Allergies: Coded Allergies: No Known Allergies (Unverified , 09/15/19) Objective Last 24 Hour Vital Signs Date Time Temp Pulse Resp B/P (MAP) Pulse Ox O2 Delivery O2 Flow Rate FiO2 09/17/19 08:00 87 09/17/19 08:00 97.9 90 16 123/56 (78) 95 09/17/19 08:00 2.0 09/17/19 08:00 Nasal Cannula 3.0 09/17/19 04:00 Nasal Cannula 3.0 09/17/19 04:00 98.4 84 17 117/62 (80) 98 09/17/19 04:00 3.0 09/17/19 04:00 89 09/17/19 00:00 Nasal Cannula 3.0 09/17/19 00:00 98.2 84 17 121/64 (83) 98 09/17/19 00:00 82 09/17/19 00:00 3.0 09/16/19 20:10 96 Nasal Cannula 3.0 32 09/16/19 20:00 3.0 09/16/19 20:00 98.4 87 20 122/51 (74) 97 09/16/19 20:00 Nasal Cannula 3.0 09/16/19 19:22 85 09/16/19 16:00 99.2 83 20 124/59 (80) 97 09/16/19 16:00 3.0 09/16/19 16:00 88 09/16/19 15:19 Nasal Cannula 3.0 09/16/19 12:00 90 09/16/19 12:00 Nasal Cannula 3.0 09/16/19 12:00 100.2 92 20 143/59 (87) 94 09/16/19 12:00 3.0 Intake and Output 09/16/19 09/17/19 18:59 06:59 Intake Total 400 ml Output Total 600 ml 600 ml Balance -200 ml -600 ml Intake Oral 400 ml Output Urine Total 600 ml 600 ml # Bowel Movements 2 1 General Appearance: no acute distress HEENT: normocephalic Respiratory: chest wall non-tender, decreased breath sounds Cardiovascular: normal peripheral pulses Abdomen: normal bowel sounds, soft, non tender Extremities: no cyanosis Microbiology Date/Time Source Procedure Growth Status 09/15/19 15:45 Blood Blood Culture - Preliminary Staphylococcus Sp Coag Neg Resulted 09/15/19 15:45 Urine,Clean Catch Urine Culture - Final NO GROWTH AFTER 48 HOURS Complete 09/15/19 15:45 Rectum Received Laboratory Tests 09/16/19 15:02: Urine Random Sodium < 20L 09/17/19 05:00: Stool Occult Blood Positive Current Medications Medications (Trade) Dose Ordered Sig/Galina Route PRN Reason Start Time Stop Time Status Last Admin Dose Admin Acetaminophen (Tylenol) 650 mg Q6H PRN ORAL For Headache 09/16/19 06:30 10/16/19 06:29 09/16/19 16:16 Acetaminophen (Tylenol) 650 mg Q6H PRN ORAL Temp >100.5 09/16/19 18:30 10/16/19 18:29 Acetaminophen/ Hydrocodone Bitart (Helix 10/325) 1 tab Q4H PRN ORAL For Severe Pain 09/16/19 06:30 09/23/19 06:29 09/16/19 13:47 Bisacodyl (Dulcolax) 5 mg DAILYPRN PRN RECTAL Constipation 09/16/19 06:30 12/15/19 06:29 Chlorhexidine Gluconate (Myra-Hex 2%) 1 applic DAILY@2000 TOPIC 09/17/19 20:00 12/16/19 19:59 Dextrose (Dextrose 50%) 25 ml Q30M PRN IV Hypoglycemia 09/16/19 06:30 12/15/19 06:29 Dextrose (Dextrose 50%) 50 ml Q30M PRN IV Hypoglycemia 09/16/19 06:30 12/15/19 06:29 Docusate Sodium (Colace) 100 mg TID ORAL 09/16/19 13:00 10/16/19 12:59 09/17/19 08:44 Gabapentin (Neurontin) 300 mg THREE TIMES A DAY ORAL 09/16/19 09:00 10/16/19 08:59 09/17/19 08:44 Heparin Sodium/ Sodium Chloride (Heparin 1000 units/500ml Premix) 1,000 unit ONCE PRN IV PICC 09/17/19 06:44 09/17/19 23:59 Insulin Aspart (NovoLOG) BEFORE MEALS AND HS SUBQ 09/16/19 07:30 12/15/19 07:29 Iron Sucrose 100 mg/Sodium Chloride 60 ml @ 240 mls/hr BEDTIME IV 09/17/19 21:00 09/21/19 21:14 Lactulose (Cephulac) 20 gm FOUR TIMES A DAY PRN ORAL Constipation if colace is inef 09/16/19 06:30 10/16/19 06:29 Lidocaine HCl (Xylocaine 1% 30ml) 30 ml ONCE PRN INJ PICC 09/17/19 06:43 09/17/19 23:59 Ondansetron HCl (Zofran ODT) 4 mg Q8H PRN ORAL Nausea & Vomiting 09/16/19 06:30 10/16/19 06:29 Pantoprazole (Protonix) 40 mg EVERY 12 HOURS IVP 09/16/19 21:00 10/16/19 20:59 09/17/19 08:44 Piperacillin Sod/ Tazobactam Sod 3.375 gm/Dextrose 100 ml @ 25 mls/hr EVERY 8 HOURS IVPB 09/16/19 22:00 09/21/19 21:59 09/17/19 05:23 Sennosides (Senokot) 8.6 mg QHS ORAL 09/16/19 21:00 10/16/19 20:59 09/16/19 20:24 Sitagliptin Phosphate (Januvia) 50 mg ACBREAKFAST ORAL 09/16/19 06:30 10/16/19 06:29 09/17/19 05:24 Sodium Chloride 1,000 ml @ 50 mls/hr Q20H IV 09/16/19 13:00 10/16/19 12:59 09/17/19 08:44 Sucralfate (Carafate) 1 gm FOUR TIMES A DAY ORAL 09/16/19 21:00 12/15/19 20:59 09/17/19 08:44 Vancomycin HCl (Vanco pharmacy to dose) 1 ea DAILY PRN MISC Per rx protocol 09/16/19 12:15 10/16/19 12:14 Vancomycin HCl 1 gm/Dextrose 275 ml @ 183.708 mls/hr Q24H IVPB 09/17/19 15:00 09/22/19 14:59 Assessment/Plan Assessment/Plan IMPRESSION: 1. Right lung pneumonia. 2. Left pleural effusion. 3. History of breast carcinoma. 4. Severe anemia. S/p prbc 5. History of previous GI bleed. 6. Diabetes mellitus. 7. Hypertension. DISCUSSION: Await labs today Needs PICC line. Seen by ID; on broad-spectrum antibiotics. Continue home medications. I will follow carefully. Zbigniew Mckee M.D. Zbigniew Mckee MD September 17, 2019 11:39
--- NOTE | 2019-09-17 11:55 | Consultation ---
History of Present Illness General Chief Complaint: Abnormal Labs Present Illness Allergies: Coded Allergies: No Known Allergies (Unverified , 09/15/19) Medication History Scheduled Bisacodyl* (Dulcolax*), 5 MG ORAL DAILY, (Reported) Docusate Sodium* (Colace*), 100 MG ORAL TWICE A DAY, (Reported) Esomeprazole Magnesium (Nexium), 40 MG ORAL DAILY, (Reported) Gabapentin* (Gabapentin*), 300 MG ORAL THREE TIMES A DAY, (Reported) Irbesartan* (Avapro*), 150 MG ORAL DAILY, (Reported) Magnesium Hydroxide* (Milk Of Magnesia*), 30 ML ORAL DAILY, (Reported) Sitagliptin* (Januvia*), 50 MG ORAL DAILY, (Reported) Scheduled PRN Acetaminophen* (Acetaminophen 325MG Tablet*), 325 MG ORAL Q6H PRN for , ( Reported) Miscellaneous Medications Glucagon,Human Recombinant (Glucagon Emergency Kit), 1 MG IJ, (Reported) Insulin Lispro (Humalog), 0 SUBQ, (Reported) Lactulose (Lactulose*), 30 ML ORAL, (Reported) Magnesium Citrate (Magnesium Citrate), 118 ML PO, (Reported) Sennosides/Docusate Sodium (Senna-S Tablet), 2 EACH PO, (Reported) Patient History Healthcare decision maker N Resuscitation status Advanced Directive on File Physical Exam Last 24 Hour Vital Signs Date Time Temp Pulse Resp B/P (MAP) Pulse Ox O2 Delivery O2 Flow Rate FiO2 09/17/19 08:00 87 09/17/19 08:00 97.9 90 16 123/56 (78) 95 09/17/19 08:00 2.0 09/17/19 08:00 Nasal Cannula 3.0 09/17/19 04:00 Nasal Cannula 3.0 09/17/19 04:00 98.4 84 17 117/62 (80) 98 09/17/19 04:00 3.0 09/17/19 04:00 89 09/17/19 00:00 Nasal Cannula 3.0 09/17/19 00:00 98.2 84 17 121/64 (83) 98 09/17/19 00:00 82 09/17/19 00:00 3.0 09/16/19 20:10 96 Nasal Cannula 3.0 32 5/28/20 20:00 3.0 09/16/19 20:00 98.4 87 20 122/51 (74) 97 09/16/19 20:00 Nasal Cannula 3.0 09/16/19 19:22 85 09/16/19 16:00 99.2 83 20 124/59 (80) 97 09/16/19 16:00 3.0 09/16/19 16:00 88 09/16/19 15:19 Nasal Cannula 3.0 09/16/19 12:00 90 09/16/19 12:00 Nasal Cannula 3.0 09/16/19 12:00 100.2 92 20 143/59 (87) 94 09/16/19 12:00 3.0 Intake and Output 09/16/19 09/17/19 18:59 06:59 Intake Total 400 ml Output Total 600 ml 600 ml Balance -200 ml -600 ml Intake Oral 400 ml Output Urine Total 600 ml 600 ml # Bowel Movements 2 1 Laboratory Tests Test 09/16/19 15:02 09/17/19 05:00 Urine Random Sodium < 20 mmol/L (20-110) L Stool Occult Blood Positive (NEGATIVE) Height (Feet): 5 Height (Inches): 4.00 Weight (Pounds): 141 Medications Current Medications Medications (Trade) Dose Ordered Sig/Galina Route PRN Reason Start Time Stop Time Status Last Admin Dose Admin Acetaminophen (Tylenol) 650 mg Q6H PRN ORAL For Headache 09/16/19 06:30 10/16/19 06:29 09/16/19 16:16 Acetaminophen (Tylenol) 650 mg Q6H PRN ORAL Temp >100.5 09/16/19 18:30 10/16/19 18:29 Acetaminophen/ Hydrocodone Bitart ([place]land 10/325) 1 tab Q4H PRN ORAL For Severe Pain 09/16/19 06:30 09/23/19 06:29 09/16/19 13:47 Bisacodyl (Dulcolax) 5 mg DAILYPRN PRN RECTAL Constipation 09/16/19 06:30 12/15/19 06:29 Chlorhexidine Gluconate (Myra-Hex 2%) 1 applic DAILY@2000 TOPIC 09/17/19 20:00 12/16/19 19:59 Dextrose (Dextrose 50%) 25 ml Q30M PRN IV Hypoglycemia 09/16/19 06:30 12/15/19 06:29 Dextrose (Dextrose 50%) 50 ml Q30M PRN IV Hypoglycemia 09/16/19 06:30 12/15/19 06:29 Docusate Sodium (Colace) 100 mg TID ORAL 09/16/19 13:00 10/16/19 12:59 09/17/19 08:44 Gabapentin (Neurontin) 300 mg THREE TIMES A DAY ORAL 09/16/19 09:00 10/16/19 08:59 09/17/19 08:44 Heparin Sodium/ Sodium Chloride (Heparin 1000 units/500ml Premix) 1,000 unit ONCE PRN IV PICC 09/17/19 06:44 09/17/19 23:59 Insulin Aspart (NovoLOG) BEFORE MEALS AND HS SUBQ 09/16/19 07:30 12/15/19 07:29 Iron Sucrose 100 mg/Sodium Chloride 60 ml @ 240 mls/hr BEDTIME IV 09/17/19 21:00 09/21/19 21:14 Lactulose (Cephulac) 20 gm FOUR TIMES A DAY PRN ORAL Constipation if colace is inef 09/16/19 06:30 10/16/19 06:29 Lidocaine HCl (Xylocaine 1% 30ml) 30 ml ONCE PRN INJ PICC 09/17/19 06:43 09/17/19 23:59 Ondansetron HCl (Zofran ODT) 4 mg Q8H PRN ORAL Nausea & Vomiting 09/16/19 06:30 10/16/19 06:29 Pantoprazole (Protonix) 40 mg EVERY 12 HOURS IVP 09/16/19 21:00 10/16/19 20:59 09/17/19 08:44 Piperacillin Sod/ Tazobactam Sod 3.375 gm/Dextrose 100 ml @ 25 mls/hr EVERY 8 HOURS IVPB 09/16/19 22:00 09/21/19 21:59 09/17/19 05:23 Sennosides (Senokot) 8.6 mg QHS ORAL 09/16/19 21:00 10/16/19 20:59 09/16/19 20:24 Sitagliptin Phosphate (Januvia) 50 mg ACBREAKFAST ORAL 09/16/19 06:30 10/16/19 06:29 09/17/19 05:24 Sodium Chloride 1,000 ml @ 50 mls/hr Q20H IV 09/16/19 13:00 10/16/19 12:59 09/17/19 08:44 Sucralfate (Carafate) 1 gm FOUR TIMES A DAY ORAL 09/16/19 21:00 12/15/19 20:59 09/17/19 08:44 Vancomycin HCl (Vanco pharmacy to dose) 1 ea DAILY PRN MISC Per rx protocol 09/16/19 12:15 10/16/19 12:14 Vancomycin HCl 1 gm/Dextrose 275 ml @ 183.708 mls/hr Q24H IVPB 09/17/19 15:00 09/22/19 14:59 Assessment/Plan Assessment/Plan: Hematology Consultation REQ MD: Zbigniew Mckee RFC: Metastatic breast cancer DOS 09/17/2019 HPI 74y old female, [facility] The patient has multiple chronic medical problems. The patient recently is found to have metastatic breast cancer and profound anemia related to a bleeding polyp in her duodenum. She also recently suffered a pathologic fracture of her humerus and had to undergo ORIF. The patient presents today from the jail facility for worsening anemia and ams. Per report, the patient's hemoglobin was 6.2 and then 5.0. The patient is a very poor historian and is unable to give me any type of history The patient is febrile. She also presents from a jail facility which is high risk for COVID-19. Has been seen by id, pulm, labs reviewed, still anemic, oncology consulted at this time. Allergies: No Known Allergies (Unverified , 09/15/19) COVID-19 Screening Contact w/high risk pt: Yes Recent Travel to affected area: No Experienced COVID-19 symptoms?: Yes COVID-19 symptoms experienced: Fever (T>100.4F or >38C) COVID-19 Testing performed MANAGER PLUMBING: No Patient History Past Medical History: see triage record, DM, HTN, seizures, other - Metastatic breast CA Social History: Denies: smoking, alcohol use, drug use Reviewed Nursing Documentation: PMH: Agreed; PSxH: Agreed Past Medical History: No History, Except For Hx Hypertension: Yes Hx Diabetes: Yes Hx Seizures: Yes Review of Systems All Other Systems: limited Physical Exam: Vitals: reviewed General: NAD HEENT: nc, at Neck: supple Chest: clear breath sounds bilaterally Cardiovascular: RRR, no s3, s4 Abdomen: soft, nontender, nd Extremities: no cce, normal range of motion +arm swelling bilaterally Neuro: alert and oriented Labs reviewed Imaging noted Assessment and Recs # Metastatic breast cancer -- at this time, has metastasis to the bone, need to obtain further history, have asked nurse to provide number to oncologist, will be calling them --> medications reviewed --> currently is not on any treatment inhouse --> consider chemo once discharged # Anemia rule out Gi bleeding --> anemia panel has been reviewed --> occult blood is pending --> as per gi eval--> ferritin is 1084 --> no hemolysis is noted --> okay for iv iron x 5 days # Suspected 2019 novel coronavirus infection with pna --> is on zosyn and vanc --> smear is noted # Fever likely due to sepsis --> per id abx # Azotemia --> related to dehydration --> per renal # Hypernatremia # DM2 The timing of this note does not necessarily reflect the time of the patient was seen. Greatly appreciate consultation. Marito Reza MD September 17, 2019 11:55
[2019-09-17 12:00] VITALS: BP 133/51
--- NOTE | 2019-09-17 14:05 | NUR ---
RADIOLOGY NOTE: RIGHT UPPER EXTREMITY PICC PLACED
[2019-09-17] MEDS ORDERED: Vancomycin 1gm/D5W 275ml IVPB SCH ×2 (15:00)
--- NOTE | 2019-09-17 15:50 | NUR ---
NURSE NOTES: waiting for physican order for placement confirmation before hanging IV abx.
[2019-09-17 16:00] VITALS: BP 119/58
--- NOTE | 2019-09-17 16:35 | Brief Operative Note ---
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
--- NOTE | 2019-09-17 16:38 | Diagnostic Imaging Report ---
Indications: Needs long-term IV access Technique: Procedure performed at bedside. Procedural timeout performed. Ultrasound confirms patent compressible right basilic vein. Total sterile technique, including sterile probe cover and sterile gel, sterile gloves, hand hygiene, hat, mask,, sterile gown, large sterile drape, and preparation with 2% chlorhexidine utilized. Local anesthesia with 1% lidocaine. Under real-time ultrasound guidance, puncture [] vein using 21-gauge needle, passage 0.018 guidewire, exchange for 4 Czech peel-away sheath. 4 Czech Bard dual-lumen power PICC cut to 34 cm. It was inserted through the peel-away sheath. Peel-away sheath and guidewire removed. Catheter fixed to the skin. Both catheter ports aspirated and flushed. Patient tolerated procedure well, without immediate complication. Followup chest x-ray obtained, documents catheter tip position at the right innominate vein Impression: Successful bedside placement of right arm PICC under sonographic guidance, as described above. Note that catheter is somewhat short so should be used as a midline
--- NOTE | 2019-09-17 16:41 | NUR ---
*-* INSURANCE *-* AVAILABLE CLINICALS HAVE BEEN FAXED TO: [facility] [phone] FAX [phone] Work
--- NOTE | 2019-09-17 19:19 | NUR ---
NURSE NOTES: Received report from COLLIN Kirkpatrick , pt. in bed awake, appears to be A/O x's 2-3- able to make needs known, no signs or symptoms of acute cardiac or respiratory distress noted, bed alarm on, side rails up x's3 and safety brakes engaged, call light within easy reach, pt. has bilateral soft restraints- both removed- skin intact and pulses palpable- wrist restraints reapplied, side rails padded for seizure precaution- no seizure activity noted, pt. appears to be sating well n 2L NC -no distress noted, Kellogg intact and draining to gravity, JONNY PICC intact- per endorsement to use like midline- per DR. Fraire- but okay to use line, safety measures continued, will continue with plan of care. Addendum: 09/17/19 at 1930 by LAILA TAMAYO RN RN correction to message above pt. does not have bilateral wrist restraints- its for another pt.
[2019-09-17] MEDS: Dyna-Hex 2% Top Sol 2oz TOPIC SCH (19:58)
[2019-09-17 20:00] VITALS: BP 125/64
[2019-09-17] MEDS: Iron Sucrose 100 MG in NS 55 ML IV SCH (20:01)
[2019-09-17] MEDS: Sennosides 8.6mg tab ORAL SCH (20:03)
--- NOTE | 2019-09-17 21:12 | General Progress Note ---
Assessment/Plan Assessment/Plan: Assessment - Sever anemia - recent duodenal polyp bleed, ? details, ?? metastatic CA - Metastatic BRCA - r/o COVID - Poor px Recommendations - Consider addressing code status - RN to call and get endoscopy and pathology results from [facility] - daily CBC - IV IRON - IV PPI - r/o COVID - no endoscopy planned Thank you Pati Mclean MD Subjective Allergies: Coded Allergies: No Known Allergies (Unverified , 09/15/19) Subjective Above noted d/w RN no events overnight Pt with OB (+) stools still waiting for prior EGD results from [facility] Objective Last 24 Hour Vital Signs Date Time Temp Pulse Resp B/P (MAP) Pulse Ox O2 Delivery O2 Flow Rate FiO2 09/17/19 16:00 100 09/17/19 16:00 99.0 98 16 119/58 (78) 99 09/17/19 16:00 Nasal Cannula 2.0 09/17/19 16:00 2.0 09/17/19 12:00 97.5 100 16 133/51 (78) 93 09/17/19 12:00 Nasal Cannula 3.0 09/17/19 12:00 2.0 09/17/19 11:40 100 09/17/19 08:00 87 09/17/19 08:00 97.9 90 16 123/56 (78) 95 09/17/19 08:00 2.0 09/17/19 08:00 Nasal Cannula 3.0 09/17/19 04:00 Nasal Cannula 3.0 09/17/19 04:00 98.4 84 17 117/62 (80) 98 09/17/19 04:00 3.0 09/17/19 04:00 89 09/17/19 00:00 Nasal Cannula 3.0 09/17/19 00:00 98.2 84 17 121/64 (83) 98 09/17/19 00:00 82 09/17/19 00:00 3.0 Intake and Output 09/16/19 09/17/19 19:00 07:00 Intake Total 400 ml Output Total 600 ml 600 ml Balance -200 ml -600 ml Intake Oral 400 ml Output Urine Total 600 ml 600 ml # Bowel Movements 2 1 Laboratory Tests 09/17/19 05:00: Stool Occult Blood Positive Height (Feet): 5 Height (Inches): 4.00 Weight (Pounds): 141 Objective Elderly woman NCAT supple Coarse BS RR abd soft ND NT no edema Pati Gutiérrez MD September 17, 2019 21:12
[2019-09-18] VITALS: BP 131/71
--- NOTE | 2019-09-18 02:23 | NUR ---
NURSE NOTES: Pt noted to be febrile with an ax temp of 101.8 Physical assessment performed at bedside and Tylenol administered as ordered with primary RN. Will endorse to reassess
[2019-09-18 04:00] VITALS: BP 120/48
[2019-09-18] MEDS: sitaGLIPtin 50mg tab ORAL SCH (05:34)
[2019-09-18] MEDS: NovoLOG Insulin Flexpen SUBQ SCH ×4 (05:36→21:00)
--- NOTE | 2019-09-18 05:36 | NUR ---
NURSE NOTES: insulin not administered pt. appears to be lethargic- not sure if pt. will tolerate breakfast.
--- NOTE | 2019-09-18 07:02 | NUR ---
HAND-OFF: Report given to COLLIN Suarez- pt. remains stable and no signs of distress noted.
[2019-09-18 07:17] LABS: HEMATOCRIT 26.7 % (37.0-47.0); HEMOGLOBIN 8.9 G/DL (12.0-16.0); MEAN CORPUSCULAR VOLUME 83 FL (80-99); PLATELET COUNT 208 K/UL (150-450); RED BLOOD COUNT 3.23 M/UL (4.20-5.40); RED CELL DISTRIBUTION WIDTH 17.8 % (11.6-14.8); WHITE BLOOD COUNT 9.3 K/UL (4.8-10.8)
--- NOTE | 2019-09-18 07:38 | General Progress Note ---
Assessment/Plan Assessment/Plan: Assessment - Sever anemia - recent duodenal polyp bleed, ? details, ?? metastatic CA - Metastatic BRCA - r/o COVID - Poor px Recommendations - Consider addressing code status - RN to call and get endoscopy and pathology results from [facility] - daily CBC - IV IRON - IV PPI - r/o COVID - no endoscopy planned Subjective ROS Limited/Unobtainable: No Allergies: Coded Allergies: No Known Allergies (Unverified , 09/15/19) Objective Last 24 Hour Vital Signs Date Time Temp Pulse Resp B/P (MAP) Pulse Ox O2 Delivery O2 Flow Rate FiO2 09/18/19 04:00 Nasal Cannula 2.0 09/18/19 04:00 98.8 75 16 120/48 (72) 98 09/18/19 04:00 2.0 09/18/19 03:48 84 09/18/19 02:50 98.8 09/18/19 00:04 100 09/18/19 00:00 Nasal Cannula 2.0 09/18/19 00:00 2.0 09/18/19 00:00 98.0 82 16 131/71 (91) 98 09/17/19 20:00 98.2 94 16 125/64 (84) 99 09/17/19 20:00 Nasal Cannula 2.0 09/17/19 20:00 2.0 09/17/19 19:25 98 09/17/19 16:00 100 09/17/19 16:00 99.0 98 16 119/58 (78) 99 09/17/19 16:00 Nasal Cannula 2.0 09/17/19 16:00 2.0 09/17/19 12:00 97.5 100 16 133/51 (78) 93 09/17/19 12:00 Nasal Cannula 3.0 09/17/19 12:00 2.0 09/17/19 11:40 100 09/17/19 08:00 87 09/17/19 08:00 97.9 90 16 123/56 (78) 95 09/17/19 08:00 2.0 09/17/19 08:00 Nasal Cannula 3.0 Intake and Output 09/17/19 09/18/19 19:00 07:00 Intake Total 700 ml 947 ml Output Total 850 ml 750 ml Balance -150 ml 197 ml Intake Oral 650 ml IV Total 50 ml 947 ml Output Urine Total 850 ml 750 ml # Bowel Movements 1 1 Laboratory Tests 09/18/19 04:10: White Blood Count 9.3, Red Blood Count 3.23L, Hemoglobin 8.9L, Hematocrit 26.7L , Mean Corpuscular Volume 83, Mean Corpuscular Hemoglobin 27.5, Mean Corpuscular Hemoglobin Concent 33.3, Red Cell Distribution Width 17.8H, Platelet Count 208, Mean Platelet Volume 5.1L, Neutrophils (%) (Auto) , Lymphocytes (%) (Auto) , Monocytes (%) (Auto) , Eosinophils (%) (Auto) , Basophils (%) (Auto) , Neutrophils % (Manual) [Pending], Lymphocytes % (Manual) [Pending], Platelet Estimate [Pending], Platelet Morphology [Pending] Height (Feet): 5 Height (Inches): 4.00 Weight (Pounds): 141 General Appearance: no apparent distress EENT: normal ENT inspection Neck: supple Cardiovascular: normal rate Respiratory/Chest: decreased breath sounds Abdomen: normal bowel sounds, non tender, soft Extremities: non-tender Jigar De Los Santos MD September 18, 2019 07:38
--- NOTE | 2019-09-18 07:40 | NUR ---
NURSE NOTES: Received report from Sol James RN. Patient asleep in bed, drowsy, responsive to shaking, able to follow simple commands. Receiving O2 via nasal cannula @ 2L/min, respirations even and unlabored. Kellogg catheter patent and draining well. Right upper arm PICC infusing 1/2NS @ 50 cc/hr, asymptomatic. Bed locked in lowest position with padded side rails up x 3. All needs attended to. Call light within reach. Will continue to monitor.
--- NOTE | 2019-09-18 07:52 | Hematology/Onc Progress Note ---
Assessment/Plan Assessment/Plan Assessment and Recs # Metastatic breast cancer -- at this time, has metastasis to the bone, need to obtain further history, have asked nurse to provide number to oncologist, will be calling them --> medications reviewed --> currently is not on any treatment inhouse --> consider chemo once discharged # Anemia rule out Gi bleeding --> anemia panel has been reviewed --> occult blood is pending --> as per gi eval--> ferritin is 1084 --> no hemolysis is noted --> okay for iv iron x 5 days --> blood tx: 09/16 --> hgb trend: 8.9 # Suspected 2019 novel coronavirus infection with pna --> abx: zosyn and vanc --> smear is noted # Fever likely due to sepsis --> per id abx # Azotemia --> related to dehydration --> per renal # Hypernatremia # DM2 The timing of this note does not necessarily reflect the time of the patient was seen. Greatly appreciate consultation. Subjective Allergies: Coded Allergies: No Known Allergies (Unverified , 09/15/19) Subjective 09/07 s/p 1 unit blood and picc insertion , hgb improved to 8.9, iv iron and abx , no distress Objective Objective Current Medications Medications (Trade) Dose Ordered Sig/Galina Route PRN Reason Start Time Stop Time Status Last Admin Dose Admin Acetaminophen (Tylenol) 650 mg Q6H PRN ORAL For Headache 09/16/19 06:30 10/16/19 06:29 09/16/19 16:16 Acetaminophen (Tylenol) 650 mg Q6H PRN ORAL Temp >100.5 09/16/19 18:30 10/16/19 18:29 09/18/19 02:20 Acetaminophen/ Hydrocodone Bitart ([place] 10/325) 1 tab Q4H PRN ORAL For Severe Pain 09/16/19 06:30 09/23/19 06:29 09/16/19 13:47 Bisacodyl (Dulcolax) 5 mg DAILYPRN PRN RECTAL Constipation 09/16/19 06:30 12/15/19 06:29 Chlorhexidine Gluconate (Myra-Hex 2%) 1 applic DAILY@1999 TOPIC 09/17/19 20:00 12/16/19 19:59 09/17/19 19:58 Dextrose (Dextrose 50%) 25 ml Q30M PRN IV Hypoglycemia 09/16/19 06:30 12/15/19 06:29 Dextrose (Dextrose 50%) 50 ml Q30M PRN IV Hypoglycemia 09/16/19 06:30 12/15/19 06:29 Docusate Sodium (Colace) 100 mg TID ORAL 09/16/19 13:00 10/16/19 12:59 09/17/19 17:30 Gabapentin (Neurontin) 300 mg THREE TIMES A DAY ORAL 09/16/19 09:00 10/16/19 08:59 09/17/19 17:30 Insulin Aspart (NovoLOG) BEFORE MEALS AND HS SUBQ 09/16/19 07:30 12/15/19 07:29 09/17/19 20:06 Iron Sucrose 100 mg/Sodium Chloride 60 ml @ 240 mls/hr BEDTIME IV 09/17/19 21:00 09/21/19 21:14 09/17/19 20:01 Lactulose (Cephulac) 20 gm FOUR TIMES A DAY PRN ORAL Constipation if colace is inef 09/16/19 06:30 10/16/19 06:29 Ondansetron HCl (Zofran ODT) 4 mg Q8H PRN ORAL Nausea & Vomiting 09/16/19 06:30 10/16/19 06:29 Pantoprazole (Protonix) 40 mg EVERY 12 HOURS IVP 09/16/19 21:00 10/16/19 20:59 09/17/19 20:03 Piperacillin Sod/ Tazobactam Sod 3.375 gm/Dextrose 100 ml @ 25 mls/hr EVERY 8 HOURS IVPB 09/16/19 22:00 09/21/19 21:59 09/18/19 05:23 Sennosides (Senokot) 8.6 mg QHS ORAL 09/16/19 21:00 10/16/19 20:59 09/17/19 20:03 Sitagliptin Phosphate (Januvia) 50 mg ACBREAKFAST ORAL 09/16/19 06:30 10/16/19 06:29 09/18/19 05:34 Sodium Chloride 1,000 ml @ 50 mls/hr Q20H IV 09/16/19 13:00 10/16/19 12:59 09/18/19 05:23 Sucralfate (Carafate) 1 gm FOUR TIMES A DAY ORAL 09/16/19 21:00 12/15/19 20:59 09/17/19 20:03 Vancomycin HCl (Vanco pharmacy to dose) 1 ea DAILY PRN MISC Per rx protocol 09/16/19 12:15 10/16/19 12:14 Vancomycin HCl 1 gm/Dextrose 275 ml @ 183.708 mls/hr Q24H IVPB 09/17/19 15:00 09/22/19 14:59 09/17/19 15:00 Last 24 Hour Vital Signs Date Time Temp Pulse Resp B/P (MAP) Pulse Ox O2 Delivery O2 Flow Rate FiO2 09/18/19 04:00 Nasal Cannula 2.0 09/18/19 04:00 98.8 75 16 120/48 (72) 98 09/18/19 04:00 2.0 09/18/19 03:48 84 09/18/19 02:50 98.8 09/18/19 00:04 100 09/18/19 00:00 Nasal Cannula 2.0 09/18/19 00:00 2.0 09/18/19 00:00 98.0 82 16 131/71 (91) 98 09/17/19 20:00 98.2 94 16 125/64 (84) 99 09/17/19 20:00 Nasal Cannula 2.0 09/17/19 20:00 2.0 09/17/19 19:25 98 09/17/19 16:00 100 09/17/19 16:00 99.0 98 16 119/58 (78) 99 09/17/19 16:00 Nasal Cannula 2.0 09/17/19 16:00 2.0 09/17/19 12:00 97.5 100 16 133/51 (78) 93 09/17/19 12:00 Nasal Cannula 3.0 09/17/19 12:00 2.0 09/17/19 11:40 100 09/17/19 08:00 87 09/17/19 08:00 97.9 90 16 123/56 (78) 95 09/17/19 08:00 2.0 09/17/19 08:00 Nasal Cannula 3.0 09/17/19 04:00 Nasal Cannula 3.0 09/17/19 04:00 98.4 84 17 117/62 (80) 98 09/17/19 04:00 3.0 09/17/19 04:00 89 09/17/19 00:00 Nasal Cannula 3.0 09/17/19 00:00 98.2 84 17 121/64 (83) 98 09/17/19 00:00 82 09/17/19 00:00 3.0 09/16/19 20:10 96 Nasal Cannula 3.0 32 09/16/19 20:00 3.0 09/16/19 20:00 98.4 87 20 122/51 (74) 97 09/16/19 20:00 Nasal Cannula 3.0 09/16/19 19:22 85 09/16/19 16:00 99.2 83 20 124/59 (80) 97 09/16/19 16:00 3.0 09/16/19 16:00 88 09/16/19 15:19 Nasal Cannula 3.0 09/16/19 12:00 90 09/16/19 12:00 Nasal Cannula 3.0 09/16/19 12:00 100.2 92 20 143/59 (87) 94 09/16/19 12:00 3.0 09/16/19 09:00 98.4 09/16/19 08:00 92 09/16/19 08:00 100.4 93 20 122/54 (76) 96 09/16/19 08:00 3.0 09/16/19 08:00 Nasal Cannula 3.0 Intake and Output 09/17/19 09/18/19 18:59 06:59 Intake Total 650 ml 947 ml Output Total 850 ml 750 ml Balance -200 ml 197 ml Intake Oral 650 ml IV Total 947 ml Output Urine Total 850 ml 750 ml # Bowel Movements 1 1 Labs Test 09/15/19 15:24 09/15/19 15:45 09/15/19 16:55 09/15/19 17:15 White Blood Count 11.3 K/UL (4.8-10.8) Red Blood Count 2.09 M/UL (4.20-5.40) Hemoglobin 5.2 G/DL (12.0-16.0) Hematocrit 16.9 % (37.0-47.0) Mean Corpuscular Volume 81 FL (80-99) Mean Corpuscular Hemoglobin 25.0 PG (27.0-31.0) Mean Corpuscular Hemoglobin Concent 31.0 G/DL (32.0-36.0) Red Cell Distribution Width 23.0 % (11.6-14.8) Platelet Count 251 K/UL (150-450) Mean Platelet Volume 7.1 FL (6.5-10.1) Neutrophils (%) (Auto) % (45.0-75.0) Lymphocytes (%) (Auto) % (20.0-45.0) Monocytes (%) (Auto) % (1.0-10.0) Eosinophils (%) (Auto) % (0.0-3.0) Basophils (%) (Auto) % (0.0-2.0) Differential Total Cells Counted 100 Neutrophils % (Manual) 65 % (45-75) Lymphocytes % (Manual) 28 % (20-45) Monocytes % (Manual) 3 % (1-10) Eosinophils % (Manual) 0 % (0-3) Basophils % (Manual) 0 % (0-2) Band Neutrophils 4 % (0-8) Nucleated Red Blood Cells 3 /100 WBC Platelet Estimate Adequate Platelet Morphology Normal Hypochromasia 3+ Anisocytosis 3+ Microcytosis 1+ Macrocytosis Occasional Prothrombin Time 12.8 SEC (9.30-11.50) Prothromb Time International Ratio 1.2 (0.9-1.1) Activated Partial Thromboplast Time 23 SEC (23-33) D-Dimer 13.50 mg/L FEU (0.00-0.49) Sodium Level 148 MMOL/L (136-145) Potassium Level 4.3 MMOL/L (3.5-5.1) Chloride Level 112 MMOL/L (98-107) Carbon Dioxide Level 22 MMOL/L (21-32) Anion Gap 14 mmol/L (5-15) Blood Urea Nitrogen 82 mg/dL (7-18) Creatinine 1.3 MG/DL (0.55-1.30) Estimat Glomerular Filtration Rate 40.1 mL/min (>60) Glucose Level 222 MG/DL (74-106) Lactic Acid Level 3.20 mmol/L (0.4-2.0) 3.30 mmol/L (0.66-2.22) Calcium Level 8.4 MG/DL (8.5-10.1) Phosphorus Level 4.8 MG/DL (2.5-4.9) Magnesium Level 2.3 MG/DL (1.8-2.4) Total Bilirubin 0.3 MG/DL (0.2-1.0) Aspartate Amino Transf (AST/SGOT) 254 U/L (15-37) Alanine Aminotransferase (ALT/SGPT) 23 U/L (12-78) Alkaline Phosphatase 262 U/L (46-116) Total Creatine Kinase 262 U/L (26-308) Creatine Kinase MB < 0.5 NG/ML (0.0-3.6) Creatine Kinase MB Relative Index 0.1 Troponin I 0.022 ng/mL (0.000-0.056) C-Reactive Protein, Quantitative 29.6 mg/dL (0.00-0.90) Total Protein 5.4 G/DL (6.4-8.2) Albumin 1.9 G/DL (3.4-5.0) Globulin 3.5 g/dL Albumin/Globulin Ratio 0.5 (1.0-2.7) Urine Color Yellow Urine Appearance Slightly cloudy Urine pH 5 (4.5-8.0) Urine Specific [place] 1.015 (1.005-1.035) Urine Protein 1+ (NEGATIVE) Urine Glucose (UA) Negative (NEGATIVE) Urine Ketones 1+ (NEGATIVE) Urine Blood Negative (NEGATIVE) Urine Nitrite Negative (NEGATIVE) Urine Bilirubin Negative (NEGATIVE) Urine Urobilinogen 1 MG/DL (0.0-1.0) Urine Leukocyte Esterase 1+ (NEGATIVE) Urine RBC 0 /HPF (0 - 2) Urine WBC 10-15 /HPF (0 - 2) Urine Squamous Epithelial Cells Moderate /LPF (NONE/OCC) Urine Bacteria Few /HPF (NONE) Lab Scanned Report Blood Bank/Transfusion Test 09/16/19 04:45 09/16/19 09:25 09/16/19 09:30 09/16/19 15:02 White Blood Count 9.8 K/UL (4.8-10.8) Red Blood Count 2.79 M/UL (4.20-5.40) Hemoglobin 7.4 G/DL (12.0-16.0) Hematocrit 22.2 % (37.0-47.0) Mean Corpuscular Volume 79 FL (80-99) Mean Corpuscular Hemoglobin 26.5 PG (27.0-31.0) Mean Corpuscular Hemoglobin Concent 33.3 G/DL (32.0-36.0) Red Cell Distribution Width 17.0 % (11.6-14.8) Platelet Count 217 K/UL (150-450) Mean Platelet Volume 5.1 FL (6.5-10.1) Neutrophils (%) (Auto) % (45.0-75.0) Lymphocytes (%) (Auto) % (20.0-45.0) Monocytes (%) (Auto) % (1.0-10.0) Eosinophils (%) (Auto) % (0.0-3.0) Basophils (%) (Auto) % (0.0-2.0) Hemoglobin A1c 5.9 % (4.3-6.0) Lactic Acid Level 2.00 mmol/L (0.4-2.0) Iron Level 28 ug/dL (50-175) Total Iron Binding Capacity 151 ug/dL (250-450) Percent Iron Saturation 19 % (15-50) Unsaturated Iron Binding 123 ug/dL (112-346) Ferritin 1084 NG/ML (8-388) Urine Random Sodium < 20 mmol/L (20-110) Test 09/17/19 05:00 09/18/19 04:10 Stool Occult Blood Positive (NEGATIVE) White Blood Count 9.3 K/UL (4.8-10.8) Red Blood Count 3.23 M/UL (4.20-5.40) Hemoglobin 8.9 G/DL (12.0-16.0) Hematocrit 26.7 % (37.0-47.0) Mean Corpuscular Volume 83 FL (80-99) Mean Corpuscular Hemoglobin 27.5 PG (27.0-31.0) Mean Corpuscular Hemoglobin Concent 33.3 G/DL (32.0-36.0) Red Cell Distribution Width 17.8 % (11.6-14.8) Platelet Count 208 K/UL (150-450) Mean Platelet Volume 5.1 FL (6.5-10.1) Neutrophils (%) (Auto) % (45.0-75.0) Lymphocytes (%) (Auto) % (20.0-45.0) Monocytes (%) (Auto) % (1.0-10.0) Eosinophils (%) (Auto) % (0.0-3.0) Basophils (%) (Auto) % (0.0-2.0) Height (Feet): 5 Height (Inches): 4.00 Weight (Pounds): 141 Objective Physical Exam: Vitals: reviewed General: NAD HEENT: nc, at Neck: supple Chest: clear breath sounds bilaterally, nc+ Cardiovascular: RRR, no s3, s4 Abdomen: soft, nontender, nd Extremities: no cce, normal range of motion +arm swelling bilaterally, picc+ Neuro: alert and oriented Marito Reza MD September 18, 2019 07:52
[2019-09-18 08:00] VITALS: BP 107/46
[2019-09-18] MEDS: Docusate 100mg cap ORAL SCH ×3 (09:05→17:55)
[2019-09-18] MEDS: Sucralfate 1gm tab ORAL SCH ×4 (09:05→21:19)
[2019-09-18] MEDS: Pantoprazole Inj IVP SCH ×2 (09:05→21:20)
--- NOTE | 2019-09-18 09:10 | Pulmonology Progress Note ---
Subjective ROS Limited/Unobtainable: No Interval Events: Looking and feeling better Constitutional: Reports: no symptoms HEENT: Repors: no symptoms Respiratory: Reports: no symptoms Cardiovascular: Reports: no symptoms Gastrointestinal/Abdominal: Reports: no symptoms Allergies: Coded Allergies: No Known Allergies (Unverified , 09/15/19) Objective Last 24 Hour Vital Signs Date Time Temp Pulse Resp B/P (MAP) Pulse Ox O2 Delivery O2 Flow Rate FiO2 09/18/19 08:00 2.0 09/18/19 08:00 97.7 77 16 107/46 (66) 97 09/18/19 04:00 Nasal Cannula 2.0 09/18/19 04:00 98.8 75 16 120/48 (72) 98 09/18/19 04:00 2.0 09/18/19 03:48 84 09/18/19 02:50 98.8 09/18/19 00:04 100 09/18/19 00:00 Nasal Cannula 2.0 09/18/19 00:00 2.0 09/18/19 00:00 98.0 82 16 131/71 (91) 98 09/17/19 20:00 98.2 94 16 125/64 (84) 99 09/17/19 20:00 Nasal Cannula 2.0 09/17/19 20:00 2.0 09/17/19 19:25 98 09/17/19 16:00 100 09/17/19 16:00 99.0 98 16 119/58 (78) 99 09/17/19 16:00 Nasal Cannula 2.0 09/17/19 16:00 2.0 09/17/19 12:00 97.5 100 16 133/51 (78) 93 09/17/19 12:00 Nasal Cannula 3.0 09/17/19 12:00 2.0 09/17/19 11:40 100 Intake and Output 09/17/19 09/18/19 18:59 06:59 Intake Total 650 ml 947 ml Output Total 850 ml 750 ml Balance -200 ml 197 ml Intake Oral 650 ml IV Total 947 ml Output Urine Total 850 ml 750 ml # Bowel Movements 1 1 General Appearance: no acute distress HEENT: normocephalic Respiratory: chest wall non-tender, decreased breath sounds Cardiovascular: normal peripheral pulses Abdomen: normal bowel sounds, soft, non tender Extremities: no cyanosis Microbiology Date/Time Source Procedure Growth Status 09/16/19 23:30 Blood Blood Culture - Preliminary NO GROWTH AFTER 24 HOURS Resulted 09/16/19 23:25 Blood Blood Culture - Preliminary NO GROWTH AFTER 24 HOURS Resulted 09/16/19 09:25 Blood Blood Culture - Preliminary NO GROWTH AFTER 24 HOURS Resulted 09/15/19 15:45 Blood Blood Culture - Final Staph Hominis Ssp Hominis Complete 09/15/19 15:45 Nasal Nares MRSA Culture - Final NO METHICILLIN RESISTANT STAPH AUREUS... Complete 09/15/19 15:24 Nasopharynx Coronavirus COVID-19 PCR (KRISTINA) - Final Complete 09/15/19 15:45 Urine,Clean Catch Urine Culture - Final NO GROWTH AFTER 48 HOURS Complete 09/15/19 15:45 Rectum - Final NO CARBAPENEM-RESISTANT ENTEROBACTERI... Complete 09/15/19 15:45 Rectum VRE Culture - Final NO VANCOMYCIN RESISTANT ENTEROCOCCUS ... Complete Laboratory Tests 09/18/19 04:10: White Blood Count 9.3, Red Blood Count 3.23L, Hemoglobin 8.9L, Hematocrit 26.7L , Mean Corpuscular Volume 83, Mean Corpuscular Hemoglobin 27.5, Mean Corpuscular Hemoglobin Concent 33.3, Red Cell Distribution Width 17.8H, Platelet Count 208, Mean Platelet Volume 5.1L, Neutrophils (%) (Auto) , Lymphocytes (%) (Auto) , Monocytes (%) (Auto) , Eosinophils (%) (Auto) , Basophils (%) (Auto) , Neutrophils % (Manual) [Pending], Lymphocytes % (Manual) [Pending], Platelet Estimate [Pending], Platelet Morphology [Pending] Current Medications Medications (Trade) Dose Ordered Sig/Galina Route PRN Reason Start Time Stop Time Status Last Admin Dose Admin Acetaminophen (Tylenol) 650 mg Q6H PRN ORAL For Headache 09/16/19 06:30 10/16/19 06:29 09/16/19 16:16 Acetaminophen (Tylenol) 650 mg Q6H PRN ORAL Temp >100.5 09/16/19 18:30 10/16/19 18:29 09/18/19 02:20 Acetaminophen/ Hydrocodone Bitart ([place] 10/325) 1 tab Q4H PRN ORAL For Severe Pain 09/16/19 06:30 09/23/19 06:29 09/16/19 13:47 Bisacodyl (Dulcolax) 5 mg DAILYPRN PRN RECTAL Constipation 09/16/19 06:30 12/15/19 06:29 Chlorhexidine Gluconate (Myra-Hex 2%) 1 applic DAILY@2000 TOPIC 09/17/19 20:00 12/16/19 19:59 09/17/19 19:58 Dextrose (Dextrose 50%) 25 ml Q30M PRN IV Hypoglycemia 09/16/19 06:30 12/15/19 06:29 Dextrose (Dextrose 50%) 50 ml Q30M PRN IV Hypoglycemia 09/16/19 06:30 12/15/19 06:29 Docusate Sodium (Colace) 100 mg TID ORAL 09/16/19 13:00 10/16/19 12:59 09/18/19 09:05 Gabapentin (Neurontin) 300 mg THREE TIMES A DAY ORAL 09/16/19 09:00 10/16/19 08:59 09/18/19 09:05 Insulin Aspart (NovoLOG) BEFORE MEALS AND HS SUBQ 09/16/19 07:30 12/15/19 07:29 09/17/19 20:06 Iron Sucrose 100 mg/Sodium Chloride 60 ml @ 240 mls/hr BEDTIME IV 09/17/19 21:00 09/21/19 21:14 09/17/19 20:01 Lactulose (Cephulac) 20 gm FOUR TIMES A DAY PRN ORAL Constipation if colace is inef 09/16/19 06:30 10/16/19 06:29 Ondansetron HCl (Zofran ODT) 4 mg Q8H PRN ORAL Nausea & Vomiting 09/16/19 06:30 10/16/19 06:29 Pantoprazole (Protonix) 40 mg EVERY 12 HOURS IVP 09/16/19 21:00 10/16/19 20:59 09/18/19 09:05 Piperacillin Sod/ Tazobactam Sod 3.375 gm/Dextrose 100 ml @ 25 mls/hr EVERY 8 HOURS IVPB 09/16/19 22:00 09/21/19 21:59 09/18/19 05:23 Sennosides (Senokot) 8.6 mg QHS ORAL 09/16/19 21:00 10/16/19 20:59 09/17/19 20:03 Sitagliptin Phosphate (Januvia) 50 mg ACBREAKFAST ORAL 09/16/19 06:30 10/16/19 06:29 09/18/19 05:34 Sodium Chloride 1,000 ml @ 50 mls/hr Q20H IV 09/16/19 13:00 10/16/19 12:59 09/18/19 05:23 Sucralfate (Carafate) 1 gm FOUR TIMES A DAY ORAL 09/16/19 21:00 12/15/19 20:59 09/18/19 09:05 Vancomycin HCl (Vanco pharmacy to dose) 1 ea DAILY PRN MISC Per rx protocol 09/16/19 12:15 10/16/19 12:14 Vancomycin HCl 1 gm/Dextrose 275 ml @ 183.708 mls/hr Q24H IVPB 09/17/19 15:00 09/22/19 14:59 09/17/19 15:00 Assessment/Plan Assessment/Plan IMPRESSION: 1. Right lung pneumonia. 2. Left pleural effusion. 3. History of breast carcinoma. 4. Severe anemia. S/p prbc 5. History of previous GI bleed. 6. Diabetes mellitus. 7. Hypertension. 8. bacteremia; likely contaminant 9. COVID -19 pcr x 1 negative DISCUSSION: Reviewed labs S/p PICC line. Seen by ID; on broad-spectrum antibiotics. Continue home medications. I will follow carefully.Will repeat COVID 19 pcr Dc planning No further inpatient workup anticipated Mandi Roth Omar Syed MD September 18, 2019 09:10
--- NOTE | 2019-09-18 10:46 | Diagnostic Imaging Report ---
EXAM: XR Chest, 1 View CLINICAL HISTORY: INFECT TECHNIQUE: Frontal view of the chest. COMPARISON: Chest x-ray 09/15/19 FINDINGS: Lungs: Slightly worsening interstitial thickening. Worsening bilateral lower lung airspace opacity, worse on the right. Chin overlying the right lung apex. Pleural space: Worsening small bilateral pleural effusions, worse on the right. No pneumothorax. Heart: Mild cardiomegaly. Mediastinum: Unremarkable. Bones/joints: Unremarkable. IMPRESSION: 1. Slightly worsening interstitial thickening. Worsening bilateral lower lung airspace opacity, worse on the right. 2. Worsening small bilateral pleural effusions, worse on the right.
[2019-09-18 11:17] LABS: ANION GAP 8 mmol/L (5-15); BLOOD UREA NITROGEN 40 mg/dL (7-18); CARBON DIOXIDE 26 MMOL/L (21-32); CHLORIDE 113 MMOL/L (98-107); POTASSIUM 3.7 MMOL/L (3.5-5.1); SODIUM 147 MMOL/L (136-145)
[2019-09-18 11:21] LABS: ALANINE AMINOTRANSFERASE 12 U/L (12-78); ALBUMIN 1.5 G/DL (3.4-5.0); ALBUMIN/GLOBULIN RATIO 0.4 (1.0-2.7); ALKALINE PHOSPHATASE 263 U/L (46-116); ASPARTATE AMINO TRANSFERASE 93 U/L (15-37); BILIRUBIN,TOTAL 0.6 MG/DL (0.2-1.0)
[2019-09-18 12:00] VITALS: BP 107/48
--- NOTE | 2019-09-18 12:29 | Nephrology Progress Note ---
Assessment/Plan Problem List: (1) DAVID (acute kidney injury) Assessment: Partly GI bleed (2) Hypernatremia Assessment: Partly dehydration (3) Anemia (4) GI bleed Assessment: Due to GI bleed (5) Metastatic cancer Assessment: Breast with bone metastasis (6) Suspected 2019 novel coronavirus infection (7) Hypoalbuminemia (8) DMII (diabetes mellitus, type 2) Assessment This patient is 74-year-old female who presents with fever and is a [facility] residence in which there is a high risk of COVID-19 Renal failure, most likely prerenal azotemia secondary to GI bleed, Hypernatremia most likely secondary to dehydration Severe anemia most likely due to GI bleed, patient has history of bleeding polyp in her duodenum. Metastatic breast cancer. Pathological fracture of the humerus had to undergo ORIF History of hypertension History of diabetes mellitus History of seizures Possible UTI Severe hypoalbuminemia Plan Today's blood results reviewed. BUN and creatinine improved Meanwhile: Kellogg catheter Slow hydration with one half normal saline 50 cc an hour Monitor renal parameters, hemoglobin, urine output Keep the blood pressure and blood sugar in check Per orders Chest x-ray: Left-sided pleural effusion left greater than right interstitial and airspace infiltrates versus edema Subjective ROS Limited/Unobtainable: No Constitutional: Reports: malaise, weakness Objective Objective Last 24 Hour Vital Signs Date Time Temp Pulse Resp B/P (MAP) Pulse Ox O2 Delivery O2 Flow Rate FiO2 09/18/19 12:00 Nasal Cannula 2.0 09/18/19 12:00 97.7 82 21 107/48 (67) 97 09/18/19 12:00 2.0 09/18/19 08:10 96 Nasal Cannula 2.0 28 09/18/19 08:00 2.0 09/18/19 08:00 75 09/18/19 08:00 Nasal Cannula 2.0 09/18/19 08:00 97.7 77 16 107/46 (66) 97 09/18/19 04:00 Nasal Cannula 2.0 09/18/19 04:00 98.8 75 16 120/48 (72) 98 09/18/19 04:00 2.0 09/18/19 03:48 84 09/18/19 02:50 98.8 09/18/19 00:04 100 09/18/19 00:00 Nasal Cannula 2.0 09/18/19 00:00 2.0 09/18/19 00:00 98.0 82 16 131/71 (91) 98 09/17/19 20:00 98.2 94 16 125/64 (84) 99 09/17/19 20:00 Nasal Cannula 2.0 09/17/19 20:00 2.0 09/17/19 19:25 98 09/17/19 16:00 100 09/17/19 16:00 99.0 98 16 119/58 (78) 99 09/17/19 16:00 Nasal Cannula 2.0 09/17/19 16:00 2.0 Intake and Output 09/17/19 09/18/19 19:00 07:00 Intake Total 700 ml 947 ml Output Total 850 ml 750 ml Balance -150 ml 197 ml Intake Oral 650 ml IV Total 50 ml 947 ml Output Urine Total 850 ml 750 ml # Bowel Movements 1 1 Laboratory Tests 09/18/19 04:10: White Blood Count 9.3, Red Blood Count 3.23L, Hemoglobin 8.9L, Hematocrit 26.7L , Mean Corpuscular Volume 83, Mean Corpuscular Hemoglobin 27.5, Mean Corpuscular Hemoglobin Concent 33.3, Red Cell Distribution Width 17.8H, Platelet Count 208, Mean Platelet Volume 5.1L, Neutrophils (%) (Auto) , Lymphocytes (%) (Auto) , Monocytes (%) (Auto) , Eosinophils (%) (Auto) , Basophils (%) (Auto) , Differential Total Cells Counted 100, Neutrophils % ( Manual) 72, Lymphocytes % (Manual) 20, Monocytes % (Manual) 6, Eosinophils % ( Manual) 2, Basophils % (Manual) 0, Band Neutrophils 0, Nucleated Red Blood Cells 3, Platelet Estimate Adequate, Platelet Morphology Normal, Polychromasia 1 +, Hypochromasia 1+, Anisocytosis 1+ 09/18/19 10:45: Sodium Level 147H, Potassium Level 3.7, Chloride Level 113H, Carbon Dioxide Level 26, Anion Gap 8, Blood Urea Nitrogen 40H, Creatinine 1.0, Estimat Glomerular Filtration Rate 54.3, Glucose Level 207H, Calcium Level 8.0L, Phosphorus Level [Pending], Magnesium Level [Pending], Total Bilirubin 0.6, Aspartate Amino Transf (AST/SGOT) 93H, Alanine Aminotransferase (ALT/SGPT) 12, Alkaline Phosphatase 263H, C-Reactive Protein, Quantitative [Pending], Pro-B- Type Natriuretic Peptide [Pending], Total Protein 5.4L, Albumin 1.5L, Globulin 3.9, Albumin/Globulin Ratio 0.4L, Triglycerides Level [Pending], Cholesterol Level [Pending], LDL Cholesterol [Pending], HDL Cholesterol [Pending], Cholesterol/HDL Ratio [Pending], Vitamin B12 Level [Pending], Folate [Pending] Height (Feet): 5 Height (Inches): 4.00 Weight (Pounds): 141 General Appearance: no apparent distress Cardiovascular: tachycardia Respiratory/Chest: decreased breath sounds Abdomen: soft Iggy Basilio MD September 18, 2019 12:29
--- NOTE | 2019-09-18 13:01 | Infectious Diseases Prog Note ---
Assessment/Plan Assessment/Plan ASSESSMENT AND PLAN: 1. possible covid-19 infection, sepsis, pna, uti, ? 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 COVID-19 isolation for now - await testing 3. Patient has history of metastatic breast cancer with pathologic fracture. 4. Anemia. 5. Diabetes. 6. Hypertension. 7. Seizure. 8. Diabetes and hypertension treatment per primary care team. 9. No known allergies. 10. Social history is negative. 11. Family history is noncontributory. 12. MAR was noted. 13. Case discussed with RN. 14. Continue treatment per primary consultants. 15. Orders were noted and entered. Subjective Constitutional: Reports: fatigue; Denies: fever HEENT: Reports: congestion - mild Respiratory: Reports: shortness of breath - mild Cardiovascular: Reports: other - no pressors Gastrointestinal/Abdominal: Denies: nausea, vomiting, diarrhea Genitourinary: Reports: other - + zapata Psychiatric: Denies: depression Hematologic: Denies: bleeding Musculoskeletal: Denies: pain Allergies: Coded Allergies: No Known Allergies (Unverified , 09/15/19) Objective Vital Signs Last 24 Hour Vital Signs Date Time Temp Pulse Resp B/P (MAP) Pulse Ox O2 Delivery O2 Flow Rate FiO2 09/18/19 12:00 88 09/18/19 12:00 Nasal Cannula 2.0 09/18/19 12:00 97.7 82 21 107/48 (67) 97 09/18/19 12:00 2.0 09/18/19 08:10 96 Nasal Cannula 2.0 28 09/18/19 08:00 2.0 09/18/19 08:00 75 09/18/19 08:00 Nasal Cannula 2.0 09/18/19 08:00 97.7 77 16 107/46 (66) 97 09/18/19 04:00 Nasal Cannula 2.0 09/18/19 04:00 98.8 75 16 120/48 (72) 98 09/18/19 04:00 2.0 09/18/19 03:48 84 09/18/19 02:50 98.8 09/18/19 00:04 100 09/18/19 00:00 Nasal Cannula 2.0 09/18/19 00:00 2.0 09/18/19 00:00 98.0 82 16 131/71 (91) 98 09/17/19 20:00 98.2 94 16 125/64 (84) 99 09/17/19 20:00 Nasal Cannula 2.0 09/17/19 20:00 2.0 09/17/19 19:25 98 09/17/19 16:00 100 09/17/19 16:00 99.0 98 16 119/58 (78) 99 09/17/19 16:00 Nasal Cannula 2.0 09/17/19 16:00 2.0 Height (Feet): 5 Height (Inches): 4.00 Weight (Pounds): 141 General Appearance: no acute distress HEENT: normocephalic, atraumatic, anicteric, supple, no JVD Respiratory/Chest: crackles/rales, rhonchi - bilaterally Cardiovascular: normal rate, regular rhythm, no gallop/murmur, no JVD Abdomen: normal bowel sounds, soft, non tender, no organomegaly, non distended Genitourinary: other - + zapata - urine slt cloudy Extremities: no cyanosis Skin: no rash Neurologic/Psychiatric: other - weak, lethargic Lymphatic: no neck adenopathy Musculoskeletal: no effusion Objective Chest x-ray - 09/18/19 - FINDINGS: Lungs: Slightly worsening interstitial thickening. Worsening bilateral lower lung airspace opacity, worse on the right. Chin overlying the right lung apex. Pleural space: Worsening small bilateral pleural effusions, worse on the right. No pneumothorax. Heart: Mild cardiomegaly. Mediastinum: Unremarkable. Bones/joints: Unremarkable. IMPRESSION: 1. Slightly worsening interstitial thickening. Worsening bilateral lower lung airspace opacity, worse on the right. 2. Worsening small bilateral pleural effusions, worse on the right. Microbiology Date/Time Source Procedure Growth Status 09/16/19 23:30 Blood Blood Culture - Preliminary NO GROWTH AFTER 24 HOURS Resulted 09/16/19 23:25 Blood Blood Culture - Preliminary NO GROWTH AFTER 24 HOURS Resulted 09/16/19 09:25 Blood Blood Culture - Preliminary NO GROWTH AFTER 24 HOURS Resulted 09/15/19 15:45 Blood Blood Culture - Final Staph Hominis Ssp Hominis Complete 09/15/19 15:45 Nasal Nares MRSA Culture - Final NO METHICILLIN RESISTANT STAPH AUREUS... Complete 09/15/19 15:24 Nasopharynx Coronavirus COVID-19 PCR (KRISTINA) - Final Complete 09/15/19 15:45 Urine,Clean Catch Urine Culture - Final NO GROWTH AFTER 48 HOURS Complete 09/15/19 15:45 Rectum - Final NO CARBAPENEM-RESISTANT ENTEROBACTERI... Complete 09/15/19 15:45 Rectum VRE Culture - Final NO VANCOMYCIN RESISTANT ENTEROCOCCUS ... Complete Laboratory Tests Test 09/18/19 04:10 09/18/19 10:45 White Blood Count 9.3 K/UL (4.8-10.8) Red Blood Count 3.23 M/UL (4.20-5.40) L Hemoglobin 8.9 G/DL (12.0-16.0) L Hematocrit 26.7 % (37.0-47.0) L Mean Corpuscular Volume 83 FL (80-99) Mean Corpuscular Hemoglobin 27.5 PG (27.0-31.0) Mean Corpuscular Hemoglobin Concent 33.3 G/DL (32.0-36.0) Red Cell Distribution Width 17.8 % (11.6-14.8) H Platelet Count 208 K/UL (150-450) Mean Platelet Volume 5.1 FL (6.5-10.1) L Neutrophils (%) (Auto) % (45.0-75.0) Lymphocytes (%) (Auto) % (20.0-45.0) Monocytes (%) (Auto) % (1.0-10.0) Eosinophils (%) (Auto) % (0.0-3.0) Basophils (%) (Auto) % (0.0-2.0) Differential Total Cells Counted 100 Neutrophils % (Manual) 72 % (45-75) Lymphocytes % (Manual) 20 % (20-45) Monocytes % (Manual) 6 % (1-10) Eosinophils % (Manual) 2 % (0-3) Basophils % (Manual) 0 % (0-2) Band Neutrophils 0 % (0-8) Nucleated Red Blood Cells 3 /100 WBC Platelet Estimate Adequate Platelet Morphology Normal Polychromasia 1+ Hypochromasia 1+ Anisocytosis 1+ Sodium Level 147 MMOL/L (136-145) H Potassium Level 3.7 MMOL/L (3.5-5.1) Chloride Level 113 MMOL/L (98-107) H Carbon Dioxide Level 26 MMOL/L (21-32) Anion Gap 8 mmol/L (5-15) Blood Urea Nitrogen 40 mg/dL (7-18) H Creatinine 1.0 MG/DL (0.55-1.30) Estimat Glomerular Filtration Rate 54.3 mL/min (>60) Glucose Level 207 MG/DL (74-106) H Calcium Level 8.0 MG/DL (8.5-10.1) L Phosphorus Level Pending Magnesium Level Pending Total Bilirubin 0.6 MG/DL (0.2-1.0) Aspartate Amino Transf (AST/SGOT) 93 U/L (15-37) H Alanine Aminotransferase (ALT/SGPT) 12 U/L (12-78) Alkaline Phosphatase 263 U/L (46-116) H C-Reactive Protein, Quantitative Pending Pro-B-Type Natriuretic Peptide Pending Total Protein 5.4 G/DL (6.4-8.2) L Albumin 1.5 G/DL (3.4-5.0) L Globulin 3.9 g/dL Albumin/Globulin Ratio 0.4 (1.0-2.7) L Triglycerides Level Pending Cholesterol Level Pending LDL Cholesterol Pending HDL Cholesterol Pending Cholesterol/HDL Ratio Pending Vitamin B12 Level Pending Folate Pending Current Medications Medications (Trade) Dose Ordered Sig/Galina Route PRN Reason Start Time Stop Time Status Last Admin Dose Admin Acetaminophen (Tylenol) 650 mg Q6H PRN ORAL For Headache 09/16/19 06:30 10/16/19 06:29 09/16/19 16:16 Acetaminophen (Tylenol) 650 mg Q6H PRN ORAL Temp >100.5 09/16/19 18:30 10/16/19 18:29 09/18/19 02:20 Acetaminophen/ Hydrocodone Bitart ([place] 10/325) 1 tab Q4H PRN ORAL For Severe Pain 09/16/19 06:30 09/23/19 06:29 09/16/19 13:47 Bisacodyl (Dulcolax) 5 mg DAILYPRN PRN RECTAL Constipation 09/16/19 06:30 12/15/19 06:29 Chlorhexidine Gluconate (Myra-Hex 2%) 1 applic DAILY@1999 TOPIC 09/17/19 20:00 12/16/19 19:59 09/17/19 19:58 Dextrose (Dextrose 50%) 25 ml Q30M PRN IV Hypoglycemia 09/16/19 06:30 12/15/19 06:29 Dextrose (Dextrose 50%) 50 ml Q30M PRN IV Hypoglycemia 09/16/19 06:30 12/15/19 06:29 Docusate Sodium (Colace) 100 mg TID ORAL 09/16/19 13:00 10/16/19 12:59 09/18/19 09:05 Gabapentin (Neurontin) 300 mg THREE TIMES A DAY ORAL 09/16/19 09:00 10/16/19 08:59 09/18/19 09:05 Insulin Aspart (NovoLOG) BEFORE MEALS AND HS SUBQ 09/16/19 07:30 12/15/19 07:29 09/17/19 20:06 Iron Sucrose 100 mg/Sodium Chloride 60 ml @ 240 mls/hr BEDTIME IV 09/17/19 21:00 09/21/19 21:14 09/17/19 20:01 Lactulose (Cephulac) 20 gm FOUR TIMES A DAY PRN ORAL Constipation if colace is inef 09/16/19 06:30 10/16/19 06:29 Ondansetron HCl (Zofran ODT) 4 mg Q8H PRN ORAL Nausea & Vomiting 09/16/19 06:30 10/16/19 06:29 Pantoprazole (Protonix) 40 mg EVERY 12 HOURS IVP 09/16/19 21:00 10/16/19 20:59 09/18/19 09:05 Piperacillin Sod/ Tazobactam Sod 3.375 gm/Dextrose 100 ml @ 25 mls/hr EVERY 8 HOURS IVPB 09/16/19 22:00 09/21/19 21:59 09/18/19 05:23 Sennosides (Senokot) 8.6 mg QHS ORAL 09/16/19 21:00 10/16/19 20:59 09/17/19 20:03 Sitagliptin Phosphate (Januvia) 50 mg ACBREAKFAST ORAL 09/16/19 06:30 10/16/19 06:29 09/18/19 05:34 Sodium Chloride 1,000 ml @ 50 mls/hr Q20H IV 09/16/19 13:00 10/16/19 12:59 09/18/19 05:23 Sucralfate (Carafate) 1 gm FOUR TIMES A DAY ORAL 09/16/19 21:00 12/15/19 20:59 09/18/19 09:05 Vancomycin HCl (Vanco pharmacy to dose) 1 ea DAILY PRN MISC Per rx protocol 09/16/19 12:15 10/16/19 12:14 Vancomycin HCl 1 gm/Dextrose 275 ml @ 183.708 mls/hr Q24H IVPB 09/17/19 15:00 09/22/19 14:59 09/17/19 15:00 Jarad Lund MD September 18, 2019 13:01
[2019-09-18 13:22] LABS: CHOLESTEROL 71 MG/DL (< 200); HDL CHOLESTEROL 18 MG/DL (40-60); TRIGLYCERIDES 141 MG/DL (30-150)
[2019-09-18 13:50] LABS: PHOSPHORUS 3.2 MG/DL (2.5-4.9)
[2019-09-18 16:00] VITALS: BP 111/51
[2019-09-18] MEDS ORDERED: 1/2 NS 1000ml IV ONE (17:36)
[2019-09-18] MEDS ORDERED: NS 275ml ONE (17:36)
[2019-09-18] MEDS: Vancomycin 1gm/D5W 275ml IVPB SCH ×2 (17:55)
--- NOTE | 2019-09-18 19:11 | NUR ---
HAND-OFF: Report given to Mandie Kaufman RN. Patient in stable condition.
--- NOTE | 2019-09-18 19:15 | NUR ---
NURSE NOTES: Received pt asleep but easily arroused. Bed in lowest position. Call light within reach. Will continue to monitor.
[2019-09-18 20:00] VITALS: BP 116/52
[2019-09-18] MEDS: Sennosides 8.6mg tab ORAL SCH (21:00)
[2019-09-18] MEDS: Dyna-Hex 2% Top Sol 2oz TOPIC SCH (21:19)
[2019-09-18] MEDS: Iron Sucrose 100 MG in NS 55 ML IV SCH (21:20)
[2019-09-19] VITALS: BP 112/55
--- NOTE | 2019-09-19 00:47 | NUR ---
NURSE NOTES: cALLED AND LEFT A MESSAGE WITH dR. Beaver REGARDING PTS POOR ORAL INTAKE BUT C/O PAIN. SHE GAVE THE FOLLOWING ORDERS: - TRAMADOL 25MG IV Q6 PRN. WILL INPUT THE ORDER AND WILL CONTINUE TO MONITOR
[2019-09-19 04:00] VITALS: BP 106/55
[2019-09-19] MEDS: sitaGLIPtin 50mg tab ORAL SCH (06:00)
[2019-09-19] MEDS: NovoLOG Insulin Flexpen SUBQ SCH ×4 (06:15→21:00)
--- NOTE | 2019-09-19 07:09 | NUR ---
HAND-OFF: Report given to COLLIN Cohen. Pt stable.
--- NOTE | 2019-09-19 07:09 | NUR ---
NURSE NOTES: Received report from COLLIN Grimm. Pt in bed awake and [id number] 2, azeri speaking, lethargic and able to make needs known. On O2 2LPM via N/C and sating 88%. O2 increased to 4LPM via N/C and sating 97%. Side railsx3 up for safety. PICC in JONNY with 2 Lumens patent and asymptomatic. Call light within easy reach. HOB elevated with 30 degree. Side railsx3 up for safety. Will continue plan of care.
[2019-09-19 07:18] LABS: BASOPHILS % (AUTO) 0.9 % (0.0-2.0); EOSINOPHILS % (AUTO) 0.2 % (0.0-3.0); HEMATOCRIT 28.7 % (37.0-47.0); HEMOGLOBIN 9.4 G/DL (12.0-16.0); LYMPHOCYTES % (AUTO) 14.5 % (20.0-45.0); MEAN CORPUSCULAR VOLUME 84 FL (80-99); MONOCYTES % (AUTO) 6.2 % (1.0-10.0); NEUTROPHILS % (AUTO) 78.2 % (45.0-75.0); PLATELET COUNT 244 K/UL (150-450); RED BLOOD COUNT 3.41 M/UL (4.20-5.40); WHITE BLOOD COUNT 8.8 K/UL (4.8-10.8)
--- NOTE | 2019-09-19 07:21 | Hematology/Onc Progress Note ---
Assessment/Plan Assessment/Plan Assessment and Recs # Metastatic breast cancer -- at this time, has metastasis to the bone, need to obtain further history, have asked nurse to provide number to oncologist, will be calling them --> medications reviewed --> currently is not on any treatment inhouse --> consider chemo once discharged # Anemia rule out Gi bleeding --> anemia panel has been reviewed --> occult blood is pending --> as per gi eval--> ferritin is 1084 --> no hemolysis is noted --> okay for iv iron x 5 days --> blood tx: 09/16 --> hgb trend: 8.9 # Suspected 2019 novel coronavirus infection with pna --> abx: zosyn/ vanc --> smear is noted --> 09/17 cxr Slightly worsening interstitial thickening. Worsening bilateral lower lung airspace opacity, worse on the right. 2. Worsening small bilateral pleural effusions, worse on the right. # Fever likely due to sepsis --> per id abx # Azotemia --> related to dehydration --> per renal # Hypernatremia # DM2 The timing of this note does not necessarily reflect the time of the patient was seen. Greatly appreciate consultation. Subjective Allergies: Coded Allergies: No Known Allergies (Unverified , 09/15/19) Subjective 09/17 s/p 1 unit blood and picc insertion , hgb improved to 8.9, iv iron and abx , no distress 09/18 no overnight events, labs pending, iv iron, nc 2l Objective Objective Current Medications Medications (Trade) Dose Ordered Sig/Galina Route PRN Reason Start Time Stop Time Status Last Admin Dose Admin Acetaminophen (Tylenol) 650 mg Q6H PRN ORAL For Headache 09/16/19 06:30 10/16/19 06:09/16/19 16:16 Acetaminophen (Tylenol) 650 mg Q6H PRN ORAL Temp >100.5 09/16/19 18:30 10/16/19 18:29 09/18/19 02:20 Acetaminophen/ Hydrocodone Bitart ([place] 10/325) 1 tab Q4H PRN ORAL For Severe Pain 09/16/19 06:30 09/23/19 06:09/16/19 13:47 Bisacodyl (Dulcolax) 5 mg DAILYPRN PRN RECTAL Constipation 09/16/19 06:30 12/15/19 06:29 Chlorhexidine Gluconate (Myra-Hex 2%) 1 applic DAILY@2000 TOPIC 09/17/19 20:00 12/16/19 19:59 09/18/19 21:19 Dextrose (Dextrose 50%) 25 ml Q30M PRN IV Hypoglycemia 09/16/19 06:30 12/15/19 06:29 Dextrose (Dextrose 50%) 50 ml Q30M PRN IV Hypoglycemia 09/16/19 06:30 12/15/19 06:29 Docusate Sodium (Colace) 100 mg TID ORAL 09/16/19 13:00 10/16/19 12:59 09/18/19 17:55 Gabapentin (Neurontin) 300 mg THREE TIMES A DAY ORAL 09/16/19 09:00 10/16/19 08:59 09/18/19 17:55 Insulin Aspart (NovoLOG) BEFORE MEALS AND HS SUBQ 09/16/19 07:30 12/15/19 07:29 09/19/19 06:15 Iron Sucrose 100 mg/Sodium Chloride 60 ml @ 240 mls/hr BEDTIME IV 09/17/19 21:00 09/21/19 21:14 09/18/19 21:20 Lactulose (Cephulac) 20 gm FOUR TIMES A DAY PRN ORAL Constipation if colace is inef 09/16/19 06:30 10/16/19 06:29 Non-Formulary Medication (Non-Formulary Med) 1 ea Q6HR PRN IV FOR PAIN 09/19/19 01:00 10/19/19 00:59 UNV Ondansetron HCl (Zofran ODT) 4 mg Q8H PRN ORAL Nausea & Vomiting 09/16/19 06:30 10/16/19 06:29 Pantoprazole (Protonix) 40 mg EVERY 12 HOURS IVP 09/16/19 21:00 10/16/19 20:59 09/18/19 21:20 Piperacillin Sod/ Tazobactam Sod 3.375 gm/Dextrose 100 ml @ 25 mls/hr EVERY 8 HOURS IVPB 09/16/19 22:00 09/21/19 21:59 09/19/19 06:04 Sennosides (Senokot) 8.6 mg QHS ORAL 09/16/19 21:00 10/16/19 20:59 09/17/19 20:03 Sitagliptin Phosphate (Januvia) 50 mg ACBREAKFAST ORAL 09/16/19 06:30 10/16/19 06:29 09/18/19 05:34 Sodium Chloride 1,000 ml @ 50 mls/hr Q20H IV 09/16/19 13:00 10/16/19 12:59 09/19/19 01:22 Sucralfate (Carafate) 1 gm FOUR TIMES A DAY ORAL 09/16/19 21:00 12/15/19 20:59 09/18/19 21:19 Vancomycin HCl (Vanco pharmacy to dose) 1 ea DAILY PRN MISC Per rx protocol 09/16/19 12:15 10/16/19 12:14 Vancomycin HCl 1 gm/Dextrose 275 ml @ 183.708 mls/hr Q24H IVPB 09/18/19 17:30 09/23/19 17:29 09/18/19 17:55 Last 24 Hour Vital Signs Date Time Temp Pulse Resp B/P (MAP) Pulse Ox O2 Delivery O2 Flow Rate FiO2 09/19/19 04:00 2.0 09/19/19 04:00 98.2 105 24 106/55 (72) 95 09/19/19 04:00 101 09/19/19 04:00 Nasal Cannula 2.0 09/19/19 00:00 114 09/19/19 00:00 2.0 09/19/19 00:00 99.0 105 24 112/55 (74) 98 09/19/19 00:00 Nasal Cannula 2.0 09/18/19 20:03 95 Nasal Cannula 2.0 28 09/18/19 20:00 99.1 91 28 116/52 (73) 95 09/18/19 20:00 Nasal Cannula 2.0 09/18/19 20:00 89 09/18/19 16:00 2.0 09/18/19 16:00 87 09/18/19 16:00 Nasal Cannula 2.0 09/18/19 16:00 97.9 89 20 111/51 (71) 96 09/18/19 12:00 88 09/18/19 12:00 Nasal Cannula 2.0 09/18/19 12:00 97.7 82 21 107/48 (67) 97 09/18/19 12:00 2.0 09/18/19 08:10 96 Nasal Cannula 2.0 28 09/18/19 08:00 2.0 09/18/19 08:00 75 09/18/19 08:00 Nasal Cannula 2.0 09/18/19 08:00 97.7 77 16 107/46 (66) 97 09/18/19 04:00 Nasal Cannula 2.0 09/18/19 04:00 98.8 75 16 120/48 (72) 98 09/18/19 04:00 2.0 09/18/19 03:48 84 09/18/19 02:50 98.8 09/18/19 00:04 100 09/18/19 00:00 Nasal Cannula 2.0 09/18/19 00:00 2.0 09/18/19 00:00 98.0 82 16 131/71 (91) 98 09/17/19 20:00 98.2 94 16 125/64 (84) 99 09/17/19 20:00 Nasal Cannula 2.0 09/17/19 20:00 2.0 09/17/19 19:25 98 09/17/19 16:00 100 09/17/19 16:00 99.0 98 16 119/58 (78) 99 09/17/19 16:00 Nasal Cannula 2.0 09/17/19 16:00 2.0 09/17/19 12:00 97.5 100 16 133/51 (78) 93 09/17/19 12:00 Nasal Cannula 3.0 09/17/19 12:00 2.0 09/17/19 11:40 100 09/17/19 08:00 87 09/17/19 08:00 97.9 90 16 123/56 (78) 95 09/17/19 08:00 2.0 09/17/19 08:00 Nasal Cannula 3.0 Intake and Output 09/18/19 09/19/19 19:00 07:00 Intake Total 1199.017 ml Output Total 400 ml 300 ml Balance 799.017 ml -300 ml Intake Oral 300 ml IV Total 899.017 ml Output Urine Total 400 ml 300 ml # Bowel Movements 2 4 Labs Test 09/16/19 09:25 09/16/19 09:30 09/16/19 15:02 09/17/19 05:00 Lactic Acid Level 2.00 mmol/L (0.4-2.0) Iron Level 28 ug/dL (50-175) Total Iron Binding Capacity 151 ug/dL (250-450) Percent Iron Saturation 19 % (15-50) Unsaturated Iron Binding 123 ug/dL (112-346) Ferritin 1084 NG/ML (8-388) Urine Random Sodium < 20 mmol/L (20-110) Stool Occult Blood Positive (NEGATIVE) Test 09/18/19 04:10 09/18/19 10:45 09/19/19 06:10 White Blood Count 9.3 K/UL (4.8-10.8) Red Blood Count 3.23 M/UL (4.20-5.40) Hemoglobin 8.9 G/DL (12.0-16.0) Hematocrit 26.7 % (37.0-47.0) Mean Corpuscular Volume 83 FL (80-99) Mean Corpuscular Hemoglobin 27.5 PG (27.0-31.0) Mean Corpuscular Hemoglobin Concent 33.3 G/DL (32.0-36.0) Red Cell Distribution Width 17.8 % (11.6-14.8) Platelet Count 208 K/UL (150-450) Mean Platelet Volume 5.1 FL (6.5-10.1) Neutrophils (%) (Auto) % (45.0-75.0) Lymphocytes (%) (Auto) % (20.0-45.0) Monocytes (%) (Auto) % (1.0-10.0) Eosinophils (%) (Auto) % (0.0-3.0) Basophils (%) (Auto) % (0.0-2.0) Differential Total Cells Counted 100 Neutrophils % (Manual) 72 % (45-75) Lymphocytes % (Manual) 20 % (20-45) Monocytes % (Manual) 6 % (1-10) Eosinophils % (Manual) 2 % (0-3) Basophils % (Manual) 0 % (0-2) Band Neutrophils 0 % (0-8) Nucleated Red Blood Cells 3 /100 WBC Platelet Estimate Adequate Platelet Morphology Normal Polychromasia 1+ Hypochromasia 1+ Anisocytosis 1+ Sodium Level 147 MMOL/L (136-145) Potassium Level 3.7 MMOL/L (3.5-5.1) Chloride Level 113 MMOL/L (98-107) Carbon Dioxide Level 26 MMOL/L (21-32) Anion Gap 8 mmol/L (5-15) Blood Urea Nitrogen 40 mg/dL (7-18) Creatinine 1.0 MG/DL (0.55-1.30) Estimat Glomerular Filtration Rate 54.3 mL/min (>60) Glucose Level 207 MG/DL (74-106) Calcium Level 8.0 MG/DL (8.5-10.1) Phosphorus Level 3.2 MG/DL (2.5-4.9) Magnesium Level 2.4 MG/DL (1.8-2.4) Total Bilirubin 0.6 MG/DL (0.2-1.0) Aspartate Amino Transf (AST/SGOT) 93 U/L (15-37) Alanine Aminotransferase (ALT/SGPT) 12 U/L (12-78) Alkaline Phosphatase 263 U/L (46-116) C-Reactive Protein, Quantitative 44.6 mg/dL (0.00-0.90) Pro-B-Type Natriuretic Peptide 3258 pg/mL (0-125) Total Protein 5.4 G/DL (6.4-8.2) Albumin 1.5 G/DL (3.4-5.0) Globulin 3.9 g/dL Albumin/Globulin Ratio 0.4 (1.0-2.7) Triglycerides Level 141 MG/DL (30-150) Cholesterol Level 71 MG/DL (< 200) LDL Cholesterol 31 mg/dL (<100) HDL Cholesterol 18 MG/DL (40-60) Cholesterol/HDL Ratio 3.9 (3.3-4.4) Vitamin B12 Level > 2000 PG/ML (193-986) Folate 14.4 NG/ML (8.6-58.9) Height (Feet): 5 Height (Inches): 4.00 Weight (Pounds): 141 Objective Physical Exam: Vitals: reviewed General: NAD HEENT: nc, at Neck: supple Chest: clear breath sounds bilaterally, nc+ Cardiovascular: RRR, no s3, s4 Abdomen: soft, nontender, nd Extremities: no cce, normal range of motion +arm swelling bilaterally, picc+ Neuro: alert and oriented Marito Reza MD September 19, 2019 07:21
--- NOTE | 2019-09-19 07:35 | Pulmonology Progress Note ---
Subjective ROS Limited/Unobtainable: No Interval Events: Looking and feeling better Constitutional: Reports: fatigue; Denies: fever HEENT: Repors: no symptoms Respiratory: Reports: no symptoms Cardiovascular: Reports: no symptoms Gastrointestinal/Abdominal: Denies: nausea, vomiting, diarrhea Psychiatric: Denies: depression Musculoskeletal: Denies: pain Allergies: Coded Allergies: No Known Allergies (Unverified , 09/15/19) Objective Last 24 Hour Vital Signs Date Time Temp Pulse Resp B/P (MAP) Pulse Ox O2 Delivery O2 Flow Rate FiO2 09/19/19 04:00 2.0 09/19/19 04:00 98.2 105 24 106/55 (72) 95 09/19/19 04:00 101 09/19/19 04:00 Nasal Cannula 2.0 09/19/19 00:00 114 09/19/19 00:00 2.0 09/19/19 00:00 99.0 105 24 112/55 (74) 98 09/19/19 00:00 Nasal Cannula 2.0 09/18/19 20:03 95 Nasal Cannula 2.0 28 09/18/19 20:00 99.1 91 28 116/52 (73) 95 09/18/19 20:00 Nasal Cannula 2.0 09/18/19 20:00 89 09/18/19 16:00 2.0 09/18/19 16:00 87 09/18/19 16:00 Nasal Cannula 2.0 09/18/19 16:00 97.9 89 20 111/51 (71) 96 09/18/19 12:00 88 09/18/19 12:00 Nasal Cannula 2.0 09/18/19 12:00 97.7 82 21 107/48 (67) 97 09/18/19 12:00 2.0 09/18/19 08:10 96 Nasal Cannula 2.0 28 09/18/19 08:00 2.0 09/18/19 08:00 75 09/18/19 08:00 Nasal Cannula 2.0 09/18/19 08:00 97.7 77 16 107/46 (66) 97 Intake and Output 09/18/19 09/19/19 18:59 06:59 Intake Total 1015.309 ml 233.708 ml Output Total 400 ml 300 ml Balance 615.309 ml -66.292 ml Intake Oral 300 ml IV Total 715.309 ml 233.708 ml Output Urine Total 400 ml 300 ml # Bowel Movements 2 4 General Appearance: no acute distress HEENT: normocephalic Respiratory: chest wall non-tender, decreased breath sounds Cardiovascular: normal peripheral pulses Abdomen: normal bowel sounds, soft, non tender Extremities: no cyanosis Microbiology Date/Time Source Procedure Growth Status 09/16/19 23:30 Blood Blood Culture - Preliminary NO GROWTH AFTER 48 HOURS Resulted 09/16/19 23:25 Blood Blood Culture - Preliminary NO GROWTH AFTER 48 HOURS Resulted 09/16/19 09:25 Blood Blood Culture - Preliminary NO GROWTH AFTER 48 HOURS Resulted Laboratory Tests 09/18/19 10:45: Sodium Level 147H, Potassium Level 3.7, Chloride Level 113H, Carbon Dioxide Level 26, Anion Gap 8, Blood Urea Nitrogen 40H, Creatinine 1.0, Estimat Glomerular Filtration Rate 54.3, Glucose Level 207H, Calcium Level 8.0L, Phosphorus Level 3.2, Magnesium Level 2.4, Total Bilirubin 0.6, Aspartate Amino Transf (AST/SGOT) 93H, Alanine Aminotransferase (ALT/SGPT) 12, Alkaline Phosphatase 263H, C-Reactive Protein, Quantitative 44.6H, Pro-B-Type Natriuretic Peptide 3258H, Total Protein 5.4L, Albumin 1.5L, Globulin 3.9, Albumin/Globulin Ratio 0.4L, Triglycerides Level 141, Cholesterol Level 71, LDL Cholesterol 31, HDL Cholesterol 18L, Cholesterol/HDL Ratio 3.9, Vitamin B12 Level > 2000H, Folate 14.4 09/19/19 06:10: Sodium Level [Pending], Potassium Level [Pending], Chloride Level [Pending], Carbon Dioxide Level [Pending], Blood Urea Nitrogen [Pending], Creatinine [ Pending], Estimat Glomerular Filtration Rate [Pending], Glucose Level [Pending] , Calcium Level [Pending], Phosphorus Level [Pending], Magnesium Level [Pending] , Total Bilirubin [Pending], Aspartate Amino Transf (AST/SGOT) [Pending], Alanine Aminotransferase (ALT/SGPT) [Pending], Alkaline Phosphatase [Pending], Total Protein [Pending], Albumin [Pending], Globulin [Pending], White Blood Count 8.8, Red Blood Count 3.41L, Hemoglobin 9.4L, Hematocrit 28.7L, Mean Corpuscular Volume 84, Mean Corpuscular Hemoglobin 27.4, Mean Corpuscular Hemoglobin Concent 32.5, Red Cell Distribution Width 18.0H, Platelet Count 244, Mean Platelet Volume 5.2L, Neutrophils (%) (Auto) 78.2H, Lymphocytes (%) (Auto) 14.5L, Monocytes (%) (Auto) 6.2, Eosinophils (%) (Auto) 0.2, Basophils (%) (Auto ) 0.9, D-Dimer [Pending], Uric Acid [Pending], Lactate Dehydrogenase [Pending], Thyroid Stimulating Hormone (TSH) [Pending] Current Medications Medications (Trade) Dose Ordered Sig/Galina Route PRN Reason Start Time Stop Time Status Last Admin Dose Admin Acetaminophen (Tylenol) 650 mg Q6H PRN ORAL For Headache 09/16/19 06:30 10/16/19 06:29 09/16/19 16:16 Acetaminophen (Tylenol) 650 mg Q6H PRN ORAL Temp >100.5 09/16/19 18:30 10/16/19 18:29 09/18/19 02:20 Acetaminophen/ Hydrocodone Bitart ([place] 10/325) 1 tab Q4H PRN ORAL For Severe Pain 09/16/19 06:30 09/23/19 06:29 09/16/19 13:47 Bisacodyl (Dulcolax) 5 mg DAILYPRN PRN RECTAL Constipation 09/16/19 06:30 12/15/19 06:29 Chlorhexidine Gluconate (Myra-Hex 2%) 1 applic DAILY@1999 TOPIC 09/17/19 20:00 12/16/19 19:59 09/18/19 21:19 Dextrose (Dextrose 50%) 25 ml Q30M PRN IV Hypoglycemia 09/16/19 06:30 12/15/19 06:29 Dextrose (Dextrose 50%) 50 ml Q30M PRN IV Hypoglycemia 09/16/19 06:30 12/15/19 06:29 Docusate Sodium (Colace) 100 mg TID ORAL 09/16/19 13:00 10/16/19 12:59 09/18/19 17:55 Gabapentin (Neurontin) 300 mg THREE TIMES A DAY ORAL 09/16/19 09:00 10/16/19 08:59 09/18/19 17:55 Insulin Aspart (NovoLOG) BEFORE MEALS AND HS SUBQ 09/16/19 07:30 12/15/19 07:29 09/19/19 06:15 Iron Sucrose 100 mg/Sodium Chloride 60 ml @ 240 mls/hr BEDTIME IV 09/17/19 21:00 09/21/19 21:14 09/18/19 21:20 Lactulose (Cephulac) 20 gm FOUR TIMES A DAY PRN ORAL Constipation if colace is inef 09/16/19 06:30 10/16/19 06:29 Non-Formulary Medication (Non-Formulary Med) 1 ea Q6HR PRN IV FOR PAIN 09/19/19 01:00 10/19/19 00:59 UNV Ondansetron HCl (Zofran ODT) 4 mg Q8H PRN ORAL Nausea & Vomiting 09/16/19 06:30 10/16/19 06:29 Pantoprazole (Protonix) 40 mg EVERY 12 HOURS IVP 09/16/19 21:00 10/16/19 20:59 09/18/19 21:20 Piperacillin Sod/ Tazobactam Sod 3.375 gm/Dextrose 100 ml @ 25 mls/hr EVERY 8 HOURS IVPB 09/16/19 22:00 09/21/19 21:59 09/19/19 06:04 Sennosides (Senokot) 8.6 mg QHS ORAL 09/16/19 21:00 10/16/19 20:59 09/17/19 20:03 Sitagliptin Phosphate (Januvia) 50 mg ACBREAKFAST ORAL 09/16/19 06:30 10/16/19 06:29 09/18/19 05:34 Sodium Chloride 1,000 ml @ 50 mls/hr Q20H IV 09/16/19 13:00 10/16/19 12:59 09/19/19 01:22 Sucralfate (Carafate) 1 gm FOUR TIMES A DAY ORAL 09/16/19 21:00 12/15/19 20:59 09/18/19 21:19 Vancomycin HCl (Vanco pharmacy to dose) 1 ea DAILY PRN MISC Per rx protocol 09/16/19 12:15 10/16/19 12:14 Vancomycin HCl 1 gm/Dextrose 275 ml @ 183.708 mls/hr Q24H IVPB 09/18/19 17:30 09/23/19 17:29 09/18/19 17:55 Assessment/Plan Assessment/Plan IMPRESSION: 1. Right lung pneumonia. 2. Left pleural effusion. 3. History of breast carcinoma. 4. Severe anemia. S/p prbc 5. History of previous GI bleed. 6. Diabetes mellitus. 7. Hypertension. 8. bacteremia; likely contaminant 9. COVID -19 pcr x 1 negative DISCUSSION: Reviewed labs S/p PICC line. Seen by ID; on broad-spectrum antibiotics. Continue home medications. I will follow carefully.Await repeat COVID 19 pcr Dc planning No further inpatient workup anticipated Mandi Roth Omar Syed MD September 19, 2019 07:35
--- NOTE | 2019-09-19 07:47 | General Progress Note ---
Assessment/Plan Assessment/Plan: Assessment - Sever anemia - recent duodenal polyp bleed, ? details, ?? metastatic CA - Metastatic BRCA - r/o COVID - Poor px Recommendations - Consider addressing code status - pending endoscopy and pathology results from [facility] - daily CBC - IV IRON - IV PPI - r/o COVID - no endoscopy planned -may need NGT placement and feeding Subjective ROS Limited/Unobtainable: No Allergies: Coded Allergies: No Known Allergies (Unverified , 09/15/19) Objective Last 24 Hour Vital Signs Date Time Temp Pulse Resp B/P (MAP) Pulse Ox O2 Delivery O2 Flow Rate FiO2 09/19/19 04:00 2.0 09/19/19 04:00 98.2 105 24 106/55 (72) 95 09/19/19 04:00 101 09/19/19 04:00 Nasal Cannula 2.0 09/19/19 00:00 114 09/19/19 00:00 2.0 09/19/19 00:00 99.0 105 24 112/55 (74) 98 09/19/19 00:00 Nasal Cannula 2.0 09/18/19 20:03 95 Nasal Cannula 2.0 28 09/18/19 20:00 99.1 91 28 116/52 (73) 95 09/18/19 20:00 Nasal Cannula 2.0 09/18/19 20:00 89 09/18/19 16:00 2.0 09/18/19 16:00 87 09/18/19 16:00 Nasal Cannula 2.0 09/18/19 16:00 97.9 89 20 111/51 (71) 96 09/18/19 12:00 88 09/18/19 12:00 Nasal Cannula 2.0 09/18/19 12:00 97.7 82 21 107/48 (67) 97 09/18/19 12:00 2.0 09/18/19 08:10 96 Nasal Cannula 2.0 28 09/18/19 08:00 2.0 09/18/19 08:00 75 09/18/19 08:00 Nasal Cannula 2.0 09/18/19 08:00 97.7 77 16 107/46 (66) 97 Intake and Output 09/18/19 09/19/19 18:59 06:59 Intake Total 1015.309 ml 233.708 ml Output Total 400 ml 300 ml Balance 615.309 ml -66.292 ml Intake Oral 300 ml IV Total 715.309 ml 233.708 ml Output Urine Total 400 ml 300 ml # Bowel Movements 2 4 Laboratory Tests 09/18/19 10:45: Sodium Level 147H, Potassium Level 3.7, Chloride Level 113H, Carbon Dioxide Level 26, Anion Gap 8, Blood Urea Nitrogen 40H, Creatinine 1.0, Estimat Glomerular Filtration Rate 54.3, Glucose Level 207H, Calcium Level 8.0L, Phosphorus Level 3.2, Magnesium Level 2.4, Total Bilirubin 0.6, Aspartate Amino Transf (AST/SGOT) 93H, Alanine Aminotransferase (ALT/SGPT) 12, Alkaline Phosphatase 263H, C-Reactive Protein, Quantitative 44.6H, Pro-B-Type Natriuretic Peptide 3258H, Total Protein 5.4L, Albumin 1.5L, Globulin 3.9, Albumin/Globulin Ratio 0.4L, Triglycerides Level 141, Cholesterol Level 71, LDL Cholesterol 31, HDL Cholesterol 18L, Cholesterol/HDL Ratio 3.9, Vitamin B12 Level > 2000H, Folate 14.4 09/19/19 06:10: Sodium Level [Pending], Potassium Level [Pending], Chloride Level [Pending], Carbon Dioxide Level [Pending], Blood Urea Nitrogen [Pending], Creatinine [ Pending], Estimat Glomerular Filtration Rate [Pending], Glucose Level [Pending] , Calcium Level [Pending], Phosphorus Level [Pending], Magnesium Level [Pending] , Total Bilirubin [Pending], Aspartate Amino Transf (AST/SGOT) [Pending], Alanine Aminotransferase (ALT/SGPT) [Pending], Alkaline Phosphatase [Pending], Total Protein [Pending], Albumin [Pending], Globulin [Pending], White Blood Count 8.8, Red Blood Count 3.41L, Hemoglobin 9.4L, Hematocrit 28.7L, Mean Corpuscular Volume 84, Mean Corpuscular Hemoglobin 27.4, Mean Corpuscular Hemoglobin Concent 32.5, Red Cell Distribution Width 18.0H, Platelet Count 244, Mean Platelet Volume 5.2L, Neutrophils (%) (Auto) 78.2H, Lymphocytes (%) (Auto) 14.5L, Monocytes (%) (Auto) 6.2, Eosinophils (%) (Auto) 0.2, Basophils (%) (Auto ) 0.9, D-Dimer [Pending], Uric Acid [Pending], Lactate Dehydrogenase [Pending], Thyroid Stimulating Hormone (TSH) [Pending] Height (Feet): 5 Height (Inches): 4.00 Weight (Pounds): 141 General Appearance: no apparent distress EENT: PERRL/EOMI Neck: supple Cardiovascular: normal rate Respiratory/Chest: respiratory distress, decreased breath sounds, rhonchi - bilaterally Extremities: non-tender Jigar De Los Santos MD September 19, 2019 07:47
[2019-09-19 07:49] LABS: ALANINE AMINOTRANSFERASE 14 U/L (12-78); ALBUMIN 1.5 G/DL (3.4-5.0); ALBUMIN/GLOBULIN RATIO 0.3 (1.0-2.7); ALKALINE PHOSPHATASE 253 U/L (46-116); ANION GAP 10 mmol/L (5-15); ASPARTATE AMINO TRANSFERASE 77 U/L (15-37); BILIRUBIN,TOTAL 0.8 MG/DL (0.2-1.0); BLOOD UREA NITROGEN 39 mg/dL (7-18); CALCIUM 8.1 MG/DL (8.5-10.1); CARBON DIOXIDE 24 MMOL/L (21-32); CHLORIDE 111 MMOL/L (98-107); CREATININE 1.1 MG/DL (0.55-1.30); PHOSPHORUS 3.3 MG/DL (2.5-4.9); POTASSIUM 3.9 MMOL/L (3.5-5.1); SODIUM 145 MMOL/L (136-145)
[2019-09-19 08:00] VITALS: BP 110/52
--- NOTE | 2019-09-19 08:21 | NUR ---
NURSE NOTES: Dr. Reza notified for elevated D-dimer with 13.0. Awaiting for reply.
[2019-09-19] MEDS ORDERED: Enoxaparin 40mg Inj SUBQ SCH ×2 (09:00)
[2019-09-19] MEDS: Docusate 100mg cap ORAL SCH ×3 (09:00→17:41)
[2019-09-19] MEDS: Pantoprazole Inj IVP SCH ×2 (09:25→20:52)
[2019-09-19] MEDS: Sucralfate 1gm tab ORAL SCH ×5 (09:25→21:00)
[2019-09-19] MEDS: HYDROcodone/Acetamin 10/325 tab ORAL PRN (09:42)
--- NOTE | 2019-09-19 09:56 | Nephrology Progress Note ---
Assessment/Plan Problem List: (1) DAVID (acute kidney injury) Assessment: Partly GI bleed (2) Hypernatremia Assessment: Partly dehydration (3) Anemia (4) GI bleed Assessment: Due to GI bleed (5) Metastatic cancer Assessment: Breast with bone metastasis (6) Suspected 2019 novel coronavirus infection (7) Hypoalbuminemia (8) DMII (diabetes mellitus, type 2) Assessment This patient is 74-year-old female who presents with fever and is a longterm residence in which there is a high risk of COVID-19 Renal failure, most likely prerenal azotemia secondary to GI bleed, Hypernatremia most likely secondary to dehydration Severe anemia most likely due to GI bleed, patient has history of bleeding polyp in her duodenum. Metastatic breast cancer. Pathological fracture of the humerus had to undergo ORIF History of hypertension History of diabetes mellitus History of seizures Possible UTI Severe hypoalbuminemia Plan P.o. intake poor Today's blood results reviewed. BUN and creatinine improved Meanwhile: Kellogg catheter Slow hydration with one half normal saline 50 cc an hour Monitor renal parameters, hemoglobin, urine output Keep the blood pressure and blood sugar in check Per orders Chest x-ray: Left-sided pleural effusion left greater than right interstitial and airspace infiltrates versus edema Subjective ROS Limited/Unobtainable: No Constitutional: Reports: malaise Objective Objective Last 24 Hour Vital Signs Date Time Temp Pulse Resp B/P (MAP) Pulse Ox O2 Delivery O2 Flow Rate FiO2 09/19/19 08:00 4.0 09/19/19 08:00 98.2 96 24 110/52 (71) 100 09/19/19 08:00 103 09/19/19 08:00 Nasal Cannula 4.0 09/19/19 04:00 2.0 09/19/19 04:00 98.2 105 24 106/55 (72) 95 09/19/19 04:00 101 09/19/19 04:00 Nasal Cannula 2.0 09/19/19 00:00 114 09/19/19 00:00 2.0 09/19/19 00:00 99.0 105 24 112/55 (74) 98 09/19/19 00:00 Nasal Cannula 2.0 09/18/19 20:03 95 Nasal Cannula 2.0 28 09/18/19 20:00 99.1 91 28 116/52 (73) 95 09/18/19 20:00 Nasal Cannula 2.0 09/18/19 20:00 89 09/18/19 16:00 2.0 09/18/19 16:00 87 09/18/19 16:00 Nasal Cannula 2.0 09/18/19 16:00 97.9 89 20 111/51 (71) 96 09/18/19 12:00 88 09/18/19 12:00 Nasal Cannula 2.0 09/18/19 12:00 97.7 82 21 107/48 (67) 97 09/18/19 12:00 2.0 Intake and Output 09/18/19 09/19/19 19:00 07:00 Intake Total 1199.017 ml Output Total 400 ml 300 ml Balance 799.017 ml -300 ml Intake Oral 300 ml IV Total 899.017 ml Output Urine Total 400 ml 300 ml # Bowel Movements 2 4 Laboratory Tests 09/18/19 10:45: Sodium Level 147H, Potassium Level 3.7, Chloride Level 113H, Carbon Dioxide Level 26, Anion Gap 8, Blood Urea Nitrogen 40H, Creatinine 1.0, Estimat Glomerular Filtration Rate 54.3, Glucose Level 207H, Calcium Level 8.0L, Phosphorus Level 3.2, Magnesium Level 2.4, Total Bilirubin 0.6, Aspartate Amino Transf (AST/SGOT) 93H, Alanine Aminotransferase (ALT/SGPT) 12, Alkaline Phosphatase 263H, C-Reactive Protein, Quantitative 44.6H, Pro-B-Type Natriuretic Peptide 3258H, Total Protein 5.4L, Albumin 1.5L, Globulin 3.9, Albumin/Globulin Ratio 0.4L, Triglycerides Level 141, Cholesterol Level 71, LDL Cholesterol 31, HDL Cholesterol 18L, Cholesterol/HDL Ratio 3.9, Vitamin B12 Level > 2000H, Folate 14.4 09/19/19 06:10: Sodium Level 145, Potassium Level 3.9, Chloride Level 111H, Carbon Dioxide Level 24, Anion Gap 10, Blood Urea Nitrogen 39H, Creatinine 1.1, Estimat Glomerular Filtration Rate 48.7, Glucose Level 178H, Calcium Level 8.1L, Phosphorus Level 3.3, Magnesium Level 2.5H, Total Bilirubin 0.8, Aspartate Amino Transf (AST/SGOT) 77H, Alanine Aminotransferase (ALT/SGPT) 14, Alkaline Phosphatase 253H, Total Protein 5.8L, Albumin 1.5L, Globulin 4.3, Albumin/ Globulin Ratio 0.3L, White Blood Count 8.8, Red Blood Count 3.41L, Hemoglobin 9.4L, Hematocrit 28.7L, Mean Corpuscular Volume 84, Mean Corpuscular Hemoglobin 27.4, Mean Corpuscular Hemoglobin Concent 32.5, Red Cell Distribution Width 18.0H, Platelet Count 244, Mean Platelet Volume 5.2L, Neutrophils (%) (Auto) 78.2H, Lymphocytes (%) (Auto) 14.5L, Monocytes (%) (Auto) 6.2, Eosinophils (%) ( Auto) 0.2, Basophils (%) (Auto) 0.9, D-Dimer 13.00H, Uric Acid 6.2, Lactate Dehydrogenase 668H, Thyroid Stimulating Hormone (TSH) 0.370 Height (Feet): 5 Height (Inches): 4.00 Weight (Pounds): 141 General Appearance: no apparent distress Cardiovascular: tachycardia Respiratory/Chest: decreased breath sounds Abdomen: distended Iggy Basilio MD September 19, 2019 09:56
--- NOTE | 2019-09-19 11:30 | NUR ---
NURSE NOTES: Pt desating with 80% on 4LPM via N/C. Changed to 15LPM via non rebreather mask. Noted sating with 97% on 15LPM
[2019-09-19 12:00] VITALS: BP 114/51
--- NOTE | 2019-09-19 14:00 | NUR ---
NURSE NOTES: Noted pt with sating 96% on 15LPM via N/C. Changed to 6LPM via N/C and sating 88%. Will keep pt with O2 15LPM via non rebreather mask
[2019-09-19 16:00] VITALS: BP 110/52
--- NOTE | 2019-09-19 17:00 | NUR ---
NURSE NOTES: Dr. Basilio paged for 100ml of urine output. Awaiting for reply
--- NOTE | 2019-09-19 17:20 | NUR ---
NURSE NOTES: Dr. Mckee paged for clarification order for Lovenox 40mg QD SQ for positive D-dimer, the episode of desating with 70% on 4LPM via N/C and changing pain meds to Morphine per pt's request. Awaiting for reply
[2019-09-19] MEDS: Vancomycin 1gm/D5W 275ml IVPB SCH ×2 (17:40)
[2019-09-19] MEDS ORDERED: Tubing IV Secondary IV ONE (18:02)
[2019-09-19] MEDS ORDERED: 1/2 NS 1000ml IV ONE (18:02)
--- NOTE | 2019-09-19 19:10 | NUR ---
HAND-OFF: Report given to COLLIN Huerta. Pt remians stable
--- NOTE | 2019-09-19 19:11 | NUR ---
NURSE NOTES: received pt from Amy POLANCO., pt is awake and AO x1 at this moment. pt seems little lethargic. pt is on non-breather mask 15L and O2sat is at 99-100%. pt has Kellogg cath draining well with gravity. midline Right upper Arm is intact, clean, and patent. bed at the lowest position, alarmed, and locked. call light within reach. will continue to monitor pt with plan of care.
[2019-09-19 20:00] VITALS: BP 109/49
[2019-09-19] MEDS: Dyna-Hex 2% Top Sol 2oz TOPIC SCH (20:52)
[2019-09-19] MEDS: Sennosides 8.6mg tab ORAL SCH (21:00)
[2019-09-19] MEDS: Iron Sucrose 100 MG in NS 55 ML IV SCH (21:01)
[2019-09-20] VITALS (35 sets, daily range): BP systolic 71–116; BP diastolic 0–63
--- NOTE | 2019-09-20 04:30 | NUR ---
NURSE NOTES: cleaned pt, provided new gown new aris, call light within reach. no SOB
[2019-09-20] MEDS: NovoLOG Insulin Flexpen SUBQ SCH ×4 (05:41→21:00)
[2019-09-20] MEDS: sitaGLIPtin 50mg tab ORAL SCH (05:42)
--- NOTE | 2019-09-20 06:20 | NUR ---
NURSE NOTES: Dr. Reza at the bed side, D/C Lovenox due to black green stool.
--- NOTE | 2019-09-20 06:30 | NUR ---
NURSE NOTES: held NovoLog due to pt lethargic.will continue to monitor pt with plan of care. call light within reach.
--- NOTE | 2019-09-20 07:40 | NUR ---
HAND-OFF: Report given to Annika POLANCO. pt is in stable condition, endorsed plan of care.
--- NOTE | 2019-09-20 07:50 | NUR ---
NURSE NOTES: Received report from COLLIN Huerta. The patient is resting on the bed but moaning and opening eyes only with painful stimuli. Communication made by facial expression. The patient is on non-rebreather and oxygen saturation is 100%. SR of 90-100s on the quality assurance monitor body. The patient has midline double lumen on JONNY that is intact and patent and running 1/2NS@50mL/hr. The patient has Kellogg that is intact and draining by gravity. The patient's bed in the lowest position, call light in reach, and fall, aspiration, and seizure precaution reinforced. Will follow the order and lab. Will closely monitor the patient. Will continue plan of care.
--- NOTE | 2019-09-20 08:15 | NUR ---
NURSE NOTES: Rapid response called for systolic blood pressure of 70s and change in mental status to lethargy. Charge nurse, nursing specialty food products supervisor, vocational nursing instructor, RT, and ICU nurses at the bedside to assess the patient. Even after adjusting the blood pressure cuff, the patient's blood pressure was systolic 80s. Per nursing specialty food products supervisor, call Dr. Mckee (the primary physician) for further order including transfer the patient to ICU. Paged Dr. Mckee for further order but no response yet. Will closely monitor the patient. Will continue plan of care.
--- NOTE | 2019-09-20 08:20 | NUR ---
NURSE NOTES: Paged Dr. Mckee again for further order and also informed ABG result. No call back from Dr. Mckee yet. Will closely monitor the patient. Will continue plan of care.
[2019-09-20] MEDS: Sucralfate 1gm tab ORAL SCH ×4 (09:00→21:00)
[2019-09-20] MEDS: Docusate 100mg cap ORAL SCH ×3 (09:00→17:50)
--- NOTE | 2019-09-20 09:35 | NUR ---
NURSE NOTES: Paged Dr. Mckee again for further order as the patient is still lethargic and hypotensive. Dr. Mckee ordered the patient to be transferred to ICU for further management. Notified to the nursing vat house supervisor and awaiting the bed. Will continue plan of care until transfer.
--- NOTE | 2019-09-20 09:36 | NUR ---
RD ASSESSMENT & RECOMMENDATIONS SEE CARE ACTIVITY FOR COMPLETE ASSESSMENT DAILY ESTIMATED NEEDS: Needs based on DM, CA 64kg 25-30 kcals/kg 1034-3206 total kcals 1-1.5 g protein/kg 64-96 g total protein 25-30 mL/kg 4537-0553 total fluid mLs NUTRITION DIAGNOSIS: Swallowing difficulty R/T dysphagia as evidenced by pt on pureed moist texture diet, currently lethargic w/ poor PO. CURRENT DIET:CCHO MED, NUNO/ pureed moist PO DIET RECOMMENDATIONS: ENTERAL NUTRITION RECOMMENDATIONS: IF MEDICALLY INDICATED AND PART OF POC -> Glucerna 1.2 @ 60ml/hr x 24 hrs to provide 1440ml, 1728kcal, 86g prot, 1159ml free water - W/ continued lethargy, poor PO, and if part of POC obtain GI access, initiate TF - Initiate Glucerna 1.2 @ 20ml/hr x 6hrs - Advance 10ml q 4-6 hrs as tolerated to goal rate - HOB over 30 degrees/ water flush of 160ml q 6hrs without IVF ADDITIONAL RECOMMENDATIONS: * Calibrated bedscale wt for accurate CBW * Monitor PO safety and tolerance- lethargic at this time * Rec MUSIC DEPARTMENT CHAIR evaluation for appropriate texture * TF rec as above if indicated * Monitor lytes, replete as needed Addendum: 09/20/19 at [address] Will added Glucerna BID w/ meals at this time, monitor tolerance and acceptance
[2019-09-20] MEDS: Pantoprazole Inj IVP SCH ×2 (09:39→21:00)
--- NOTE | 2019-09-20 09:45 | Nephrology Progress Note ---
Assessment/Plan Problem List: (1) DAVID (acute kidney injury) Assessment: Partly GI bleed (2) Hypernatremia Assessment: Partly dehydration (3) Anemia (4) GI bleed Assessment: Due to GI bleed (5) Metastatic cancer Assessment: Breast with bone metastasis (6) Suspected 2019 novel coronavirus infection (7) Hypoalbuminemia (8) DMII (diabetes mellitus, type 2) Assessment This patient is 74-year-old female who presents with fever and is a [place] [facility] residence in which there is a high risk of COVID-19 Renal failure, most likely prerenal azotemia secondary to GI bleed, Hypernatremia most likely secondary to dehydration Severe anemia most likely due to GI bleed, patient has history of bleeding polyp in her duodenum. Metastatic breast cancer. Pathological fracture of the humerus had to undergo ORIF History of hypertension History of diabetes mellitus History of seizures Possible UTI Severe hypoalbuminemia Plan September 19: Patient oliguric. Patient lethargic. Today's labs is pending. Blood pressure is low. Will give IV boluses. Midodrine. Patient remains full code. Overall prognosis is poor. Previously: P.o. intake poor Today's blood results reviewed. BUN and creatinine improved Meanwhile: Kellogg catheter Slow hydration with one half normal saline 50 cc an hour Monitor renal parameters, hemoglobin, urine output Keep the blood pressure and blood sugar in check Per orders Chest x-ray: Left-sided pleural effusion left greater than right interstitial and airspace infiltrates versus edema Subjective ROS Limited/Unobtainable: Yes Objective Objective Last 24 Hour Vital Signs Date Time Temp Pulse Resp B/P (MAP) Pulse Ox O2 Delivery O2 Flow Rate FiO2 09/20/19 09:30 97.0 100 18 85/43 (57) 100 09/20/19 08:19 97.0 100 18 86/37 (53) 100 09/20/19 08:15 97.0 100 18 89/40 (56) 100 09/20/19 08:10 97.0 100 18 99/34 (55) 100 09/20/19 08:00 97.0 100 18 73/26 (42) 100 09/20/19 04:00 97.6 106 18 109/60 (76) 97 09/20/19 04:00 107 09/20/19 04:00 15.0 09/20/19 04:00 Non-Rebreather 15.0 09/20/19 00:00 96.3 102 18 104/58 (73) 99 09/20/19 00:00 104 09/20/19 00:00 15.0 09/20/19 00:00 Non-Rebreather 15.0 09/19/19 20:00 15.0 09/19/19 20:00 Non-Rebreather 15.0 09/19/19 20:00 98.1 130 20 109/49 (69) 98 09/19/19 20:00 102 09/19/19 19:51 97 Nasal Cannula 4.0 36 09/19/19 16:00 Nasal Cannula 15.0 09/19/19 16:00 98.2 96 21 110/52 (71) 100 09/19/19 16:00 15.0 09/19/19 16:00 107 09/19/19 12:00 109 09/19/19 12:00 97.9 100 24 114/51 (72) 100 09/19/19 12:00 15.0 09/19/19 12:00 Nasal Cannula 15.0 Intake and Output 09/19/19 09/20/19 18:59 06:59 Intake Total 1483.708 ml 700 ml Output Total 100 ml 100 ml Balance 1383.708 ml 600 ml Intake Oral 300 ml IV Total 1183.708 ml 700 ml Output Urine Total 100 ml 100 ml # Bowel Movements 2 1 Laboratory Tests 09/19/19 16:28: Vancomycin Level Trough 15.3H 09/20/19 02:50: White Blood Count [Pending], Red Blood Count [Pending], Hemoglobin [Pending], Hematocrit [Pending], Mean Corpuscular Volume [Pending], Mean Corpuscular Hemoglobin [Pending], Mean Corpuscular Hemoglobin Concent [Pending], Red Cell Distribution Width [Pending], Platelet Count [Pending], Mean Platelet Volume [ Pending], Neutrophils (%) (Auto) [Pending], Lymphocytes (%) (Auto) [Pending], Monocytes (%) (Auto) [Pending], Eosinophils (%) (Auto) [Pending], Basophils (%) (Auto) [Pending] Height (Feet): 5 Height (Inches): 4.00 Weight (Pounds): 141 General Appearance: no apparent distress, lethargic Cardiovascular: tachycardia Respiratory/Chest: decreased breath sounds Abdomen: distended Iggy Basilio MD Sep 20, 2019 09:45
--- NOTE | 2019-09-20 09:45 | NUR ---
NURSE NOTES: Albumin bolus and Protonix IV given per order. Unable to administer PO medication at this time as the patient is lethargic. Will recheck the blood pressure after albumin bolus. Will closely monitor the patient until transfer to ICU. Will continue plan of care.
[2019-09-20] MEDS ORDERED: Midodrine 10mg tab ORAL SCH (10:00)
--- NOTE | 2019-09-20 10:00 | NUR ---
NURSE NOTES: The primary nurse at the bedside for continuous assessment of the patient. The patient's blood pressure went upto 90s systolic. Will closely monitor the patient. Will continue plan of care.
[2019-09-20 10:19] LABS: BASOPHILS % (AUTO) 2.1 % (0.0-2.0); HEMATOCRIT 27.6 % (37.0-47.0); LYMPHOCYTES % (AUTO) 12.3 % (20.0-45.0); MEAN CORPUSCULAR VOLUME 84 FL (80-99); MONOCYTES % (AUTO) 5.2 % (1.0-10.0); NEUTROPHILS % (AUTO) 80.3 % (45.0-75.0); PLATELET COUNT 249 K/UL (150-450); RED BLOOD COUNT 3.29 M/UL (4.20-5.40); RED CELL DISTRIBUTION WIDTH 18.4 % (11.6-14.8); WHITE BLOOD COUNT 10.8 K/UL (4.8-10.8)
--- NOTE | 2019-09-20 10:25 | Pulmonology Progress Note ---
Subjective ROS Limited/Unobtainable: Yes Interval Events: Hypotensive and lethargic Constitutional: Reports: no symptoms, fatigue; Denies: fever HEENT: Repors: no symptoms Respiratory: Reports: no symptoms Cardiovascular: Reports: no symptoms Gastrointestinal/Abdominal: Denies: nausea, vomiting, diarrhea Psychiatric: Denies: depression Musculoskeletal: Denies: pain Allergies: Coded Allergies: No Known Allergies (Unverified , 09/15/19) Objective Last 24 Hour Vital Signs Date Time Temp Pulse Resp B/P (MAP) Pulse Ox O2 Delivery O2 Flow Rate FiO2 09/20/19 09:45 97.0 100 18 83/37 (52) 100 09/20/19 09:30 97.0 100 18 85/43 (57) 100 09/20/19 08:19 97.0 100 18 86/37 (53) 100 09/20/19 08:15 97.0 100 18 89/40 (56) 100 09/20/19 08:10 97.0 100 18 99/34 (55) 100 09/20/19 08:00 100 09/20/19 08:00 97.0 100 18 73/26 (42) 100 09/20/19 04:00 97.6 106 18 109/60 (76) 97 09/20/19 04:00 107 09/20/19 04:00 15.0 09/20/19 04:00 Non-Rebreather 15.0 09/20/19 00:00 96.3 102 18 104/58 (73) 99 09/20/19 00:00 104 09/20/19 00:00 15.0 09/20/19 00:00 Non-Rebreather 15.0 09/19/19 20:00 15.0 09/19/19 20:00 Non-Rebreather 15.0 09/19/19 20:00 98.1 130 20 109/49 (69) 98 09/19/19 20:00 102 09/19/19 19:51 97 Nasal Cannula 4.0 36 09/19/19 16:00 Nasal Cannula 15.0 09/19/19 16:00 98.2 96 21 110/52 (71) 100 09/19/19 16:00 15.0 09/19/19 16:00 107 09/19/19 12:00 109 5/31/20 12:00 97.9 100 24 114/51 (72) 100 09/19/19 12:00 15.0 09/19/19 12:00 Nasal Cannula 15.0 Intake and Output 09/19/19 09/20/19 19:00 07:00 Intake Total 1258.708 ml 650 ml Output Total 100 ml 100 ml Balance 1158.708 ml 550 ml Intake Oral 300 ml IV Total 958.708 ml 650 ml Output Urine Total 100 ml 100 ml # Bowel Movements 2 1 General Appearance: no acute distress HEENT: normocephalic Respiratory: chest wall non-tender, decreased breath sounds Cardiovascular: normal peripheral pulses Abdomen: normal bowel sounds, soft, non tender Extremities: no cyanosis Microbiology Date/Time Source Procedure Growth Status 09/18/19 11:45 Nasopharynx Coronavirus COVID-19 PCR ([facility]) - Final Complete Laboratory Tests 09/19/19 16:28: Vancomycin Level Trough 15.3H 09/20/19 09:45: White Blood Count 10.8, Red Blood Count 3.29L, Hemoglobin 9.0L, Hematocrit 27.6L , Mean Corpuscular Volume 84, Mean Corpuscular Hemoglobin 27.4, Mean Corpuscular Hemoglobin Concent 32.6, Red Cell Distribution Width 18.4H, Platelet Count 249, Mean Platelet Volume 5.2L, Neutrophils (%) (Auto) 80.3H, Lymphocytes (%) (Auto) 12.3L, Monocytes (%) (Auto) 5.2, Eosinophils (%) (Auto) 0.0, Basophils (%) (Auto) 2.1H, Sodium Level [Pending], Potassium Level [Pending ], Chloride Level [Pending], Carbon Dioxide Level [Pending], Blood Urea Nitrogen [Pending], Creatinine [Pending], Estimat Glomerular Filtration Rate [ Pending], Glucose Level [Pending], Calcium Level [Pending], Phosphorus Level [ Pending], Magnesium Level [Pending], Total Bilirubin [Pending], Aspartate Amino Transf (AST/SGOT) [Pending], Alanine Aminotransferase (ALT/SGPT) [Pending], Alkaline Phosphatase [Pending], Total Protein [Pending], Albumin [Pending], Globulin [Pending] Current Medications Medications (Trade) Dose Ordered Sig/Galina Route PRN Reason Start Time Stop Time Status Last Admin Dose Admin Acetaminophen (Tylenol) 650 mg Q6H PRN ORAL For Headache 09/16/19 06:30 10/16/19 06:29 09/16/19 16:16 Acetaminophen (Tylenol) 650 mg Q6H PRN ORAL Temp >100.5 09/16/19 18:30 10/16/19 18:29 09/18/19 02:20 Acetaminophen/ Hydrocodone Bitart ([place] 10/325) 1 tab Q4H PRN ORAL For Severe Pain 09/16/19 06:30 09/23/19 06:29 09/19/19 09:42 Albumin Human 100 ml @ 100 mls/hr ONCE ONCE IV 09/20/19 09:45 09/20/19 10:44 09/20/19 09:58 Bisacodyl (Dulcolax) 5 mg DAILYPRN PRN RECTAL Constipation 09/16/19 06:30 12/15/19 06:29 Chlorhexidine Gluconate (Myra-Hex 2%) 1 applic DAILY@2000 TOPIC 09/17/19 20:00 12/16/19 19:59 09/19/19 20:52 Dextrose (Dextrose 50%) 25 ml Q30M PRN IV Hypoglycemia 09/16/19 06:30 12/15/19 06:29 Dextrose (Dextrose 50%) 50 ml Q30M PRN IV Hypoglycemia 09/16/19 06:30 12/15/19 06:29 Docusate Sodium (Colace) 100 mg TID ORAL 09/16/19 13:00 10/16/19 12:59 09/18/19 17:55 Gabapentin (Neurontin) 300 mg THREE TIMES A DAY ORAL 09/16/19 09:00 10/16/19 08:59 09/19/19 09:25 Insulin Aspart (NovoLOG) BEFORE MEALS AND HS SUBQ 09/16/19 07:30 12/15/19 07:29 09/19/19 06:15 Iron Sucrose 100 mg/Sodium Chloride 60 ml @ 240 mls/hr BEDTIME IV 09/17/19 21:00 09/21/19 21:14 09/19/19 21:01 Lactulose (Cephulac) 20 gm FOUR TIMES A DAY PRN ORAL Constipation if colace is inef 09/16/19 06:30 10/16/19 06:29 Midodrine (Pro-Amatine) 10 mg THREE TIMES A DAY ORAL 09/20/19 10:00 12/19/19 09:59 Non-Formulary Medication (Non-Formulary Med) 1 ea Q6HR PRN IV FOR PAIN 09/19/19 01:00 10/19/19 00:59 UNV Ondansetron HCl (Zofran ODT) 4 mg Q8H PRN ORAL Nausea & Vomiting 09/16/19 06:30 10/16/19 06:29 Pantoprazole (Protonix) 40 mg EVERY 12 HOURS IVP 09/16/19 21:00 10/16/19 20:59 09/20/19 09:39 Piperacillin Sod/ Tazobactam Sod 3.375 gm/Dextrose 100 ml @ 25 mls/hr EVERY 8 HOURS IVPB 09/16/19 22:00 09/21/19 21:59 09/20/19 05:42 Sennosides (Senokot) 8.6 mg QHS ORAL 09/16/19 21:00 10/16/19 20:59 09/17/19 20:03 Sitagliptin Phosphate (Januvia) 50 mg ACBREAKFAST ORAL 09/16/19 06:30 10/16/19 06:29 09/18/19 05:34 Sodium Chloride 1,000 ml @ 50 mls/hr Q20H IV 09/16/19 13:00 10/16/19 12:59 09/19/19 20:53 Sucralfate (Carafate) 1 gm FOUR TIMES A DAY ORAL 09/16/19 21:00 12/15/19 20:59 09/19/19 09:25 Vancomycin HCl (Vanco pharmacy to dose) 1 ea DAILY PRN MISC Per rx protocol 09/16/19 12:15 10/16/19 12:14 Vancomycin HCl 1 gm/Dextrose 275 ml @ 183.708 mls/hr Q24H IVPB 09/18/19 17:30 09/23/19 17:29 09/19/19 17:40 Assessment/Plan Assessment/Plan IMPRESSION: 1. Right lung pneumonia. 2. Left pleural effusion. 3. History of breast carcinoma. 4. Severe anemia. S/p prbc 5. History of previous GI bleed. 6. Diabetes mellitus. 7. Hypertension. 8. bacteremia; likely contaminant 9. COVID -19 pcr x 1 negative DISCUSSION: Reviewed labs S/p PICC line. Seen by ID; on broad-spectrum antibiotics. Continue home medications. I will follow carefully. Await repeat COVID 19 pcr On NRBM Will transfer to ICU Mandi Roth Omar Syed MD Sep 20, 2019 10:25
--- NOTE | 2019-09-20 10:30 | NUR ---
NURSE NOTES: The patient got safely transferred to ICU [address] with the primary nurse. Bed bath given with another RN. The patient is on non-rebreather 15L and oxygen saturation is 100%. No fever noted. Will recheck the vital sign as soon as possible. Will closely monitor the patient. Will continue plan of care.
[2019-09-20 10:37] LABS: ANION GAP 17 mmol/L (5-15); BLOOD UREA NITROGEN 51 mg/dL (7-18); CALCIUM 8.1 MG/DL (8.5-10.1); CARBON DIOXIDE 17 MMOL/L (21-32); CHLORIDE 107 MMOL/L (98-107); CREATININE 1.8 MG/DL (0.55-1.30); POTASSIUM 4.7 MMOL/L (3.5-5.1); SODIUM 141 MMOL/L (136-145)
[2019-09-20 10:39] LABS: ALANINE AMINOTRANSFERASE 13 U/L (12-78); ALBUMIN 1.6 G/DL (3.4-5.0); ALBUMIN/GLOBULIN RATIO 0.4 (1.0-2.7); ALKALINE PHOSPHATASE 255 U/L (46-116); ASPARTATE AMINO TRANSFERASE 79 U/L (15-37); BILIRUBIN,TOTAL 0.8 MG/DL (0.2-1.0); PHOSPHORUS 4.9 MG/DL (2.5-4.9)
--- NOTE | 2019-09-20 10:45 | NUR ---
NURSE NOTES: Paged Dr. Mckee again for further order. Per Dr. Mckee, he will come in couple minutes and will give further order. Will closely monitor the patient. Will continue plan of care.
--- NOTE | 2019-09-20 11:02 | NUR ---
NURSE NOTES: Dr. Mckee at the bedside assessed the patient. Dr. Mckee was notified for abnormal ABG again. Dr. Mckee ordered the followings: BIPAP 15/5 FiO2 100% and Dopamine drip to be titrated for hypotension. Carried out the order. RT was notified for new BIPAP order and HERPA Filter placed. Will closely monitor the patient. Will continue plan of care.
[2019-09-20] MEDS ORDERED: DOPamine 400mg/250ml 250 ML IV SCH (11:15)
[2019-09-20] MEDS ORDERED: DOPAmine 400mg/250ml Premix IV SCH (11:15)
--- NOTE | 2019-09-20 11:16 | NUR ---
NURSE NOTES: Dopamine drip started on 5mcg/kg/min, which is 11.99mL/hr, per order. Will titrate as tolerated. Will closely monitor the patient. Will continue plan of care.
--- NOTE | 2019-09-20 11:20 | NUR ---
HAND-OFF: Report given to COLLIN Hammonds. All orders carried out from Dr. Mckee. The patient is stable in terms of vital signs. Endorsed plan of care.
--- NOTE | 2019-09-20 11:20 | NUR ---
NURSE NOTES: Report received from Annika POLANCO.Pt resting quietly in bed,lethargic ,noted no resp distress on Bipap15/5, Fio2 100%,no signs of pain or discomfort ,SR on the monitor,Kellogg cath draining yellow urine,skin warm and dry with JONNY PICC line site intact,with Dopamine drip at 5 mcg/hr and IVF 1/2 NS at 50 ml/hr,SR up x2 HOB elevated ,bed lock in lowest position will continue with plans of care.
[2019-09-20] MEDS: DOPamine 400mg/250ml 250 ML IV SCH ×2 (12:41→16:21)
[2019-09-20] MEDS ORDERED: Lactulose 20gm/30ml UDC ORAL PRN (12:43)
[2019-09-20] MEDS ORDERED: HYDROcodone/Acetamin 10/325 tab ORAL PRN (12:43)
[2019-09-20] MEDS: Midodrine 10mg tab ORAL SCH ×2 (13:00→17:52)
--- NOTE | 2019-09-20 16:18 | NUR ---
CASE MANAGEMENT: REVIEW SI: ANEMIA . RIGHT LUNG PNA . LEFT PLEURAL EFFUSION . BREAST CA w/ BONE METASTASIS T 97.0 HR 102 RR 18 BP 71/47 SAT 100% BIPAP FIO2 100 H/H 9.0/27.6 BUN 51 CR 1.8 ABG: PH 7.094 PCO2 64.5 PO2 138.7 HCO3 19.3 BASE -10.5 IS: NS IVF @ 50ML/HR DOPAMINE IV Q24HR VENOFER IV QHS PROTONIX IV Q12HR VANCOMYCIN IV Q24HR ZOSYN IV Q8HR ICU STATUS DCP: PATIENT IS FROM [facility]
--- NOTE | 2019-09-20 16:26 | NUR ---
*-* INSURANCE *-* AVAILABLE CLINICALS HAVE BEEN FAXED TO: [facility] [phone] FAX [phone] Work
--- NOTE | 2019-09-20 17:00 | NUR ---
NURSE NOTES: Called Dr Capmuzano,re any order for ABG and to inform him re occluded PICC line(one of the Port)awaiting return of call.
[2019-09-20] MEDS: Vancomycin 1 GM in D5W 275 ML IVPB SCH (17:30)
--- NOTE | 2019-09-20 17:30 | NUR ---
NURSE NOTES: Called Dr Small re discontinuation of Airborne Isolation,pt COVID neative x2,call return and order to discontinue Isolation.
--- NOTE | 2019-09-20 19:45 | NUR ---
HAND-OFF: Report given to Rhona Hamilton RN..
--- NOTE | 2019-09-20 20:00 | NUR ---
NURSE NOTES:RECEIVED PT ON B-PAP 15 /5 IOO % O2 SAT 100%ON DOPO DRIP AT 8 MCG/KG/MIN: PT OBTUNDED RESPONSIVE TO DEEP PAIN NGT INSERTED KUB DONE AND IN PLACE REPOSITION AND SUCTION DR SANTANA WAS NOTIFY ABG RESULT
--- NOTE | 2019-09-20 20:23 | Infectious Diseases Prog Note ---
Assessment/Plan Assessment/Plan ASSESSMENT AND PLAN: 1. possible covid-19 infection, sepsis/shock, pna, uti, ? 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 COVID-19 isolation - would continue since still with bilateral infiltrates and respiratory status worsening 3. Patient has history of metastatic breast cancer with pathologic fracture. 4. Anemia. 5. Diabetes. 6. Hypertension. 7. Seizure. 8. Diabetes and hypertension treatment per primary care team. 9. No known allergies. 10. Social history is negative. 11. Family history is noncontributory. 12. MAR was noted. 13. Case discussed with RN. 14. Continue treatment per primary consultants. 15. Orders were noted and entered. Subjective Constitutional: Reports: other - + bipap ; Denies: fever HEENT: Reports: congestion Respiratory: Reports: shortness of breath Cardiovascular: Denies: chest pain Gastrointestinal/Abdominal: Denies: nausea, vomiting, diarrhea Genitourinary: Reports: other - + zapata Neurologic: Reports: other - lethargic, weak Psychiatric: Reports: other - NA Skin: Denies: rash Hematologic: Denies: bleeding Musculoskeletal: Denies: pain Allergies: Coded Allergies: No Known Allergies (Unverified , 09/15/19) Objective Vital Signs Last 24 Hour Vital Signs Date Time Temp Pulse Resp B/P (MAP) Pulse Ox O2 Delivery O2 Flow Rate FiO2 09/20/19 19:21 86 15 100 100 09/20/19 18:09 15.0 100 09/20/19 18:00 90 14 94/34 (54) 100 09/20/19 18:00 106/56 09/20/19 17:00 102/52 09/20/19 17:00 87 18 90/42 (58) 100 09/20/19 16:21 98/33 09/20/19 16:00 98.6 93 18 97/43 (61) 100 09/20/19 16:00 15.0 100 09/20/19 16:00 97 09/20/19 16:00 Bi-pap 15.0 09/20/19 15:09 93 18 98/33 (54) 100 09/20/19 14:40 94 17 100 100 09/20/19 14:00 93 18 86/63 (71) 100 09/20/19 14:00 15.0 100 09/20/19 13:00 95 20 103/30 (54) 98 09/20/19 12:41 83/29 09/20/19 12:00 97.8 97 19 106/35 (58) 100 09/20/19 12:00 15.0 100 09/20/19 12:00 Bi-pap 15.0 09/20/19 12:00 97 09/20/19 11:51 108 20 96 Bi-Pap 100 09/20/19 11:49 108 20 96 100 09/20/19 11:16 83/29 09/20/19 11:00 15.0 100 09/20/19 11:00 96 26 86/30 (48) 98 09/20/19 10:30 102 18 82/46 (58) 100 09/20/19 10:15 99 18 71/47 (55) 100 09/20/19 10:00 102 18 92/47 (62) 100 09/20/19 09:45 97.0 100 18 83/37 (52) 100 09/20/19 09:30 97.0 100 18 85/43 (57) 100 09/20/19 08:19 97.0 100 18 86/37 (53) 100 09/20/19 08:15 97.0 100 18 89/40 (56) 100 09/20/19 08:10 97.0 100 18 99/34 (55) 100 09/20/19 08:00 Non-Rebreather 15.0 09/20/19 08:00 100 09/20/19 08:00 97.0 100 18 73/26 (42) 100 09/20/19 04:00 97.6 106 18 109/60 (76) 97 09/20/19 04:00 107 09/20/19 04:00 15.0 09/20/19 04:00 Non-Rebreather 15.0 09/20/19 00:00 96.3 102 18 104/58 (73) 99 09/20/19 00:00 104 09/20/19 00:00 15.0 09/20/19 00:00 Non-Rebreather 15.0 Height (Feet): 5 Height (Inches): 4.00 Weight (Pounds): 141 General Appearance: other - + bipa, + pressors, + sob HEENT: normocephalic, atraumatic, anicteric, mucous membranes moist Respiratory/Chest: crackles/rales, rhonchi - bilaterally Cardiovascular: normal rate, regular rhythm, no gallop/murmur, no JVD Abdomen: normal bowel sounds, soft, non tender, no organomegaly, non distended Genitourinary: other - + zapata - urine slt cloudy Extremities: no cyanosis Skin: no rash 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 Worsening bilateral lower lung airspace opacity, worse on the right. Chin overlying the right lung apex. Pleural space: Worsening small bilateral pleural effusions, worse on the right. No pneumothorax. Heart: Mild cardiomegaly. Mediastinum: Unremarkable. Bones/joints: Unremarkable. IMPRESSION: 1. Slightly worsening interstitial thickening. Worsening bilateral lower lung airspace opacity, worse on the right. 2. Worsening small bilateral pleural effusions, worse on the right. Microbiology Date/Time Source Procedure Growth Status 09/18/19 11:45 Nasopharynx Coronavirus COVID-19 PCR (K[facility]STINA) - Final Complete Laboratory Tests Test 09/20/19 08:13 09/20/19 09:45 09/20/19 20:02 Arterial Blood pH 7.094 (7.350-7.450) 7.172 (7.350-7.450) Arterial Blood Partial Pressure CO2 64.5 mmHg (35.0-45.0) *H 47.3 mmHg (35.0-45.0) H Arterial Blood Partial Pressure O2 138.7 mmHg (75.0-100.0) H 219.3 mmHg (75.0-100.0) H Arterial Blood HCO3 19.3 mmol/L (22.0-26.0) L 16.9 mmol/L (22.0-26.0) *L Arterial Blood Oxygen Saturation 98.1 % (95-100) 99.4 % (95-100) Arterial Blood Base Excess -10.5 (-2-2) *L -11 (-2-2) *L Ming Test Positive Positive White Blood Count 10.8 K/UL (4.8-10.8) Red Blood Count 3.29 M/UL (4.20-5.40) L Hemoglobin 9.0 G/DL (12.0-16.0) L Hematocrit 27.6 % (37.0-47.0) L Mean Corpuscular Volume 84 FL (80-99) Mean Corpuscular Hemoglobin 27.4 PG (27.0-31.0) Mean Corpuscular Hemoglobin Concent 32.6 G/DL (32.0-36.0) Red Cell Distribution Width 18.4 % (11.6-14.8) H Platelet Count 249 K/UL (150-450) Mean Platelet Volume 5.2 FL (6.5-10.1) L Neutrophils (%) (Auto) 80.3 % (45.0-75.0) H Lymphocytes (%) (Auto) 12.3 % (20.0-45.0) L Monocytes (%) (Auto) 5.2 % (1.0-10.0) Eosinophils (%) (Auto) 0.0 % (0.0-3.0) Basophils (%) (Auto) 2.1 % (0.0-2.0) H Sodium Level 141 MMOL/L (136-145) Potassium Level 4.7 MMOL/L (3.5-5.1) Chloride Level 107 MMOL/L (98-107) Carbon Dioxide Level 17 MMOL/L (21-32) L Anion Gap 17 mmol/L (5-15) H Blood Urea Nitrogen 51 mg/dL (7-18) H Creatinine 1.8 MG/DL (0.55-1.30) #H Estimat Glomerular Filtration Rate 27.6 mL/min (>60) Glucose Level 194 MG/DL (74-106) H Calcium Level 8.1 MG/DL (8.5-10.1) L Phosphorus Level 4.9 MG/DL (2.5-4.9) Magnesium Level 2.4 MG/DL (1.8-2.4) Total Bilirubin 0.8 MG/DL (0.2-1.0) Aspartate Amino Transf (AST/SGOT) 79 U/L (15-37) H Alanine Aminotransferase (ALT/SGPT) 13 U/L (12-78) Alkaline Phosphatase 255 U/L (46-116) H Total Protein 5.9 G/DL (6.4-8.2) L Albumin 1.6 G/DL (3.4-5.0) L Globulin 4.3 g/dL Albumin/Globulin Ratio 0.4 (1.0-2.7) L Current Medications Medications (Trade) Dose Ordered Sig/Galina Route PRN Reason Start Time Stop Time Status Last Admin Dose Admin Acetaminophen (Tylenol) 650 mg Q6H PRN ORAL For Headache 09/20/19 12:41 10/20/19 12:40 Acetaminophen (Tylenol) 650 mg Q6H PRN ORAL Temp >100.5 09/20/19 12:42 10/20/19 12:41 Acetaminophen/ Hydrocodone Bitart ([place] 10/325) 1 tab Q4H PRN ORAL For Severe Pain 09/20/19 12:43 09/27/19 12:42 Bisacodyl (Dulcolax) 10 mg DAILYPRN PRN RECTAL Constipation 09/21/19 06:30 12/15/19 06:29 Chlorhexidine Gluconate (Myra-Hex 2%) 1 applic DAILY@2000 TOPIC 09/20/19 20:00 12/16/19 19:59 Dextrose (Dextrose 50%) 25 ml Q30M PRN IV Hypoglycemia 09/20/19 12:42 12/19/19 12:41 Dextrose (Dextrose 50%) 50 ml Q30M PRN IV Hypoglycemia 09/20/19 12:42 12/19/19 12:41 Docusate Sodium (Colace) 100 mg TID ORAL 09/20/19 13:00 10/16/19 12:59 Dopamine HCl/ Dextrose 250 ml @ 0 mls/hr Q24H IV 09/20/19 12:41 12/19/19 12:40 09/20/19 16:21 Gabapentin (Neurontin) 300 mg THREE TIMES A DAY ORAL 09/20/19 13:00 10/16/19 08:59 Insulin Aspart (NovoLOG) BEFORE MEALS AND HS SUBQ 09/20/19 16:30 12/15/19 07:29 Iron Sucrose 100 mg/Sodium Chloride 60 ml @ 240 mls/hr BEDTIME IV 09/20/19 21:00 09/21/19 21:14 Lactulose (Cephulac) 20 gm QIDPRN PRN ORAL Constipation if colace is inef 09/20/19 12:43 10/20/19 12:42 Midodrine (Pro-Amatine) 10 mg THREE TIMES A DAY ORAL 09/20/19 13:00 12/19/19 09:59 Ondansetron HCl (Zofran ODT) 4 mg Q8H PRN ORAL Nausea & Vomiting 09/20/19 12:43 10/20/19 12:42 Pantoprazole (Protonix) 40 mg EVERY 12 HOURS IVP 09/20/19 21:00 10/16/19 20:59 Piperacillin Sod/ Tazobactam Sod 3.375 gm/Dextrose 100 ml @ 25 mls/hr EVERY 8 HOURS IVPB 09/20/19 14:00 09/25/19 13:59 09/20/19 14:00 Sennosides (Senokot) 8.6 mg QHS ORAL 09/20/19 21:00 10/16/19 20:59 Sitagliptin Phosphate (Januvia) 50 mg ACBREAKFAST ORAL 09/21/19 06:30 10/16/19 06:29 Sodium Chloride 1,000 ml @ 50 mls/hr Q20H IV 09/20/19 12:41 10/20/19 12:40 09/20/19 16:24 Sucralfate (Carafate) 1 gm FOUR TIMES A DAY ORAL 09/20/19 13:00 12/15/19 20:59 Vancomycin HCl (Vanco pharmacy to dose) 1 ea DAILY PRN MISC Per rx protocol 09/21/19 09:00 10/16/19 12:14 Vancomycin HCl 1 gm/Dextrose 275 ml @ 183.708 mls/hr Q24H IVPB 09/20/19 17:30 09/23/19 17:29 Jarad Lund MD Sep 20, 2019 20:23
--- NOTE | 2019-09-20 20:42 | Hematology/Onc Progress Note ---
Assessment/Plan Assessment/Plan Assessment and Recs # Metastatic breast cancer -- at this time, has metastasis to the bone, need to obtain further history, have asked nurse to provide number to oncologist, will be calling them --> medications reviewed --> currently is not on any treatment inhouse --> consider chemo once discharged # Anemia rule out Gi bleeding --> anemia panel has been reviewed --> occult blood is pending --> as per gi eval--> ferritin is 1084 --> no hemolysis is noted --> okay for iv iron x 5 days --> blood tx: 09/16 --> hgb trend: 8.9 -->9 # Suspected 2019 novel coronavirus infection with pna --> abx: zosyn/ vanc --> smear is noted --> 09/17 cxr Slightly worsening interstitial thickening. Worsening bilateral lower lung airspace opacity, worse on the right. 2. Worsening small bilateral pleural effusions, worse on the right. # Fever likely due to sepsis --> per id abx -> smear is noted # Azotemia --> related to dehydration --> per renal # Hypernatremia # DM2 The timing of this note does not necessarily reflect the time of the patient was seen. Greatly appreciate consultation. Subjective Constitutional: Denies: no symptoms, chills, fever, malaise, weakness, other HEENT: Denies: no symptoms, eye pain, blurred vision, tearing, double vision, ear pain, ear discharge, nose pain, nose congestion, throat pain, throat swelling, mouth pain, mouth swelling, other Cardiovascular: Denies: no symptoms, chest pain, edema, irregular heart rate, lightheadedness, palpitations, syncope, other Respiratory: Denies: no symptoms, cough, shortness of breath, SOB with excertion, SOB at rest, sputum, wheezing, other Gastrointestinal/Abdominal: Denies: no symptoms, abdomen distended, abdominal pain, black stools, tarry stools, blood in stool, constipated, diarrhea, difficulty swallowing, nausea, poor appetite, poor fluid intake, rectal bleeding , vomiting, other Genitourinary: Denies: no symptoms, burning, discharge, frequency, flank pain, hematuria, incontinence, pain, urgency, other Endocrine: Denies: no symptoms, excessive sweating, flushing, intolerance to cold, intolerance to heat, increased hunger, increased thirst, increased urine, unexplained weight gain, unexplained weight loss, other Hematologic/Lymphatic: Denies: no symptoms, anemia, easy bleeding, easy bruising, adenopathy, other Allergies: Coded Allergies: No Known Allergies (Unverified , 09/15/19) Subjective 09/17 s/p 1 unit blood and picc insertion , hgb improved to 8.9, iv iron and abx , no distress 09/18 no overnight events, labs pending, iv iron, nc 2l 09/19 remains at this time on zosyn and vanc, no bleeding, meds noted Objective Objective Current Medications Medications (Trade) Dose Ordered Sig/Galina Route PRN Reason Start Time Stop Time Status Last Admin Dose Admin Acetaminophen (Tylenol) 650 mg Q6H PRN ORAL For Headache 09/20/19 12:41 10/20/19 12:40 Acetaminophen (Tylenol) 650 mg Q6H PRN ORAL Temp >100.5 09/20/19 12:42 10/20/19 12:41 Acetaminophen/ Hydrocodone Bitart ([place] 10/325) 1 tab Q4H PRN ORAL For Severe Pain 09/20/19 12:43 09/27/19 12:42 Bisacodyl (Dulcolax) 10 mg DAILYPRN PRN RECTAL Constipation 09/21/19 06:30 12/15/19 06:29 Chlorhexidine Gluconate (Myra-Hex 2%) 1 applic DAILY@2000 TOPIC 09/20/19 20:00 12/16/19 19:59 Dextrose (Dextrose 50%) 25 ml Q30M PRN IV Hypoglycemia 09/20/19 12:42 12/19/19 12:41 Dextrose (Dextrose 50%) 50 ml Q30M PRN IV Hypoglycemia 09/20/19 12:42 12/19/19 12:41 Docusate Sodium (Colace) 100 mg TID ORAL 09/20/19 13:00 10/16/19 12:59 Dopamine HCl/ Dextrose 250 ml @ 0 mls/hr Q24H IV 09/20/19 12:41 12/19/19 12:40 09/20/19 16:21 Doxycycline Monohydrate (Doxycycline Monohydrate) 100 mg EVERY 12 HOURS ORAL 09/20/19 21:00 09/27/19 20:59 Gabapentin (Neurontin) 300 mg THREE TIMES A DAY ORAL 09/20/19 13:00 10/16/19 08:59 Insulin Aspart (NovoLOG) BEFORE MEALS AND HS SUBQ 09/20/19 16:30 12/15/19 07:29 Iron Sucrose 100 mg/Sodium Chloride 60 ml @ 240 mls/hr BEDTIME IV 09/20/19 21:00 09/21/19 21:14 Lactulose (Cephulac) 20 gm QIDPRN PRN ORAL Constipation if colace is inef 09/20/19 12:43 10/20/19 12:42 Midodrine (Pro-Amatine) 10 mg THREE TIMES A DAY ORAL 09/20/19 13:00 12/19/19 09:59 Ondansetron HCl (Zofran ODT) 4 mg Q8H PRN ORAL Nausea & Vomiting 09/20/19 12:43 10/20/19 12:42 Pantoprazole (Protonix) 40 mg EVERY 12 HOURS IVP 09/20/19 21:00 10/16/19 20:59 Piperacillin Sod/ Tazobactam Sod 3.375 gm/Dextrose 100 ml @ 25 mls/hr EVERY 8 HOURS IVPB 09/20/19 14:00 09/25/19 13:59 09/20/19 14:00 Sennosides (Senokot) 8.6 mg QHS ORAL 09/20/19 21:00 10/16/19 20:59 Sitagliptin Phosphate (Januvia) 50 mg ACBREAKFAST ORAL 09/21/19 06:30 10/16/19 06:29 Sodium Chloride 1,000 ml @ 50 mls/hr Q20H IV 09/20/19 12:41 10/20/19 12:40 09/20/19 16:24 Sucralfate (Carafate) 1 gm FOUR TIMES A DAY ORAL 09/20/19 13:00 12/15/19 20:59 Vancomycin HCl (Vanco pharmacy to dose) 1 ea DAILY PRN MISC Per rx protocol 09/21/19 09:00 10/16/19 12:14 Vancomycin HCl 1 gm/Dextrose 275 ml @ 183.708 mls/hr Q24H IVPB 09/20/19 17:30 09/23/19 17:29 Last 24 Hour Vital Signs Date Time Temp Pulse Resp B/P (MAP) Pulse Ox O2 Delivery O2 Flow Rate FiO2 09/20/19 19:21 86 15 100 100 09/20/19 18:09 15.0 100 09/20/19 18:00 90 14 94/34 (54) 100 09/20/19 18:00 106/56 09/20/19 17:00 102/52 09/20/19 17:00 87 18 90/42 (58) 100 09/20/19 16:21 98/33 09/20/19 16:00 98.6 93 18 97/43 (61) 100 09/20/19 16:00 15.0 100 09/20/19 16:00 97 09/20/19 16:00 Bi-pap 15.0 09/20/19 15:09 93 18 98/33 (54) 100 09/20/19 14:40 94 17 100 100 09/20/19 14:00 93 18 86/63 (71) 100 09/20/19 14:00 15.0 100 09/20/19 13:00 95 20 103/30 (54) 98 09/20/19 12:41 83/29 09/20/19 12:00 97.8 97 19 106/35 (58) 100 09/20/19 12:00 15.0 100 09/20/19 12:00 Bi-pap 15.0 09/20/19 12:00 97 09/20/19 11:51 108 20 96 Bi-Pap 100 09/20/19 11:49 108 20 96 100 09/20/19 11:16 83/29 09/20/19 11:00 15.0 100 09/20/19 11:00 96 26 86/30 (48) 98 09/20/19 10:30 102 18 82/46 (58) 100 09/20/19 10:15 99 18 71/47 (55) 100 09/20/19 10:00 102 18 92/47 (62) 100 09/20/19 09:45 97.0 100 18 83/37 (52) 100 09/20/19 09:30 97.0 100 18 85/43 (57) 100 09/20/19 08:19 97.0 100 18 86/37 (53) 100 09/20/19 08:18 100 20 09/20/19 08:15 97.0 100 18 89/40 (56) 100 09/20/19 08:10 97.0 100 18 99/34 (55) 100 09/20/19 08:00 Non-Rebreather 15.0 09/20/19 08:00 100 09/20/19 08:00 97.0 100 18 73/26 (42) 100 09/20/19 04:00 97.6 106 18 109/60 (76) 97 09/20/19 04:00 107 09/20/19 04:00 15.0 09/20/19 04:00 Non-Rebreather 15.0 09/20/19 00:00 96.3 102 18 104/58 (73) 99 09/20/19 00:00 104 09/20/19 00:00 15.0 09/20/19 00:00 Non-Rebreather 15.0 09/19/19 20:00 15.0 09/19/19 20:00 Non-Rebreather 15.0 09/19/19 20:00 98.1 130 20 109/49 (69) 98 09/19/19 20:00 102 09/19/19 19:51 97 Nasal Cannula 4.0 36 09/19/19 16:00 Nasal Cannula 15.0 09/19/19 16:00 98.2 96 21 110/52 (71) 100 09/19/19 16:00 15.0 09/19/19 16:00 107 09/19/19 12:00 109 09/19/19 12:00 97.9 100 24 114/51 (72) 100 09/19/19 12:00 15.0 09/19/19 12:00 Nasal Cannula 15.0 09/19/19 08:20 98 Nasal Cannula 4.0 36 09/19/19 08:00 4.0 09/19/19 08:00 98.2 96 24 110/52 (71) 100 09/19/19 08:00 103 09/19/19 08:00 Nasal Cannula 4.0 09/19/19 04:00 2.0 09/19/19 04:00 98.2 105 24 106/55 (72) 95 09/19/19 04:00 101 09/19/19 04:00 Nasal Cannula 2.0 09/19/19 00:00 114 09/19/19 00:00 2.0 5/31/20 00:00 99.0 105 24 112/55 (74) 98 09/19/19 00:00 Nasal Cannula 2.0 Intake and Output 09/19/19 09/20/19 19:00 07:00 Intake Total 1258.708 ml 650 ml Output Total 100 ml 100 ml Balance 1158.708 ml 550 ml Intake Oral 300 ml IV Total 958.708 ml 650 ml Output Urine Total 100 ml 100 ml # Bowel Movements 2 1 Labs Test 09/18/19 04:10 09/18/19 10:45 09/19/19 06:10 09/19/19 16:28 White Blood Count 9.3 K/UL (4.8-10.8) 8.8 K/UL (4.8-10.8) Red Blood Count 3.23 M/UL (4.20-5.40) 3.41 M/UL (4.20-5.40) Hemoglobin 8.9 G/DL (12.0-16.0) 9.4 G/DL (12.0-16.0) Hematocrit 26.7 % (37.0-47.0) 28.7 % (37.0-47.0) Mean Corpuscular Volume 83 FL (80-99) 84 FL (80-99) Mean Corpuscular Hemoglobin 27.5 PG (27.0-31.0) 27.4 PG (27.0-31.0) Mean Corpuscular Hemoglobin Concent 33.3 G/DL (32.0-36.0) 32.5 G/DL (32.0-36.0) Red Cell Distribution Width 17.8 % (11.6-14.8) 18.0 % (11.6-14.8) Platelet Count 208 K/UL (150-450) 244 K/UL (150-450) Mean Platelet Volume 5.1 FL (6.5-10.1) 5.2 FL (6.5-10.1) Neutrophils (%) (Auto) % (45.0-75.0) 78.2 % (45.0-75.0) Lymphocytes (%) (Auto) % (20.0-45.0) 14.5 % (20.0-45.0) Monocytes (%) (Auto) % (1.0-10.0) 6.2 % (1.0-10.0) Eosinophils (%) (Auto) % (0.0-3.0) 0.2 % (0.0-3.0) Basophils (%) (Auto) % (0.0-2.0) 0.9 % (0.0-2.0) Differential Total Cells Counted 100 Neutrophils % (Manual) 72 % (45-75) Lymphocytes % (Manual) 20 % (20-45) Monocytes % (Manual) 6 % (1-10) Eosinophils % (Manual) 2 % (0-3) Basophils % (Manual) 0 % (0-2) Band Neutrophils 0 % (0-8) Nucleated Red Blood Cells 3 /100 WBC Platelet Estimate Adequate Platelet Morphology Normal Polychromasia 1+ Hypochromasia 1+ Anisocytosis 1+ Sodium Level 147 MMOL/L (136-145) 145 MMOL/L (136-145) Potassium Level 3.7 MMOL/L (3.5-5.1) 3.9 MMOL/L (3.5-5.1) Chloride Level 113 MMOL/L (98-107) 111 MMOL/L (98-107) Carbon Dioxide Level 26 MMOL/L (21-32) 24 MMOL/L (21-32) Anion Gap 8 mmol/L (5-15) 10 mmol/L (5-15) Blood Urea Nitrogen 40 mg/dL (7-18) 39 mg/dL (7-18) Creatinine 1.0 MG/DL (0.55-1.30) 1.1 MG/DL (0.55-1.30) Estimat Glomerular Filtration Rate 54.3 mL/min (>60) 48.7 mL/min (>60) Glucose Level 207 MG/DL (74-106) 178 MG/DL (74-106) Calcium Level 8.0 MG/DL (8.5-10.1) 8.1 MG/DL (8.5-10.1) Phosphorus Level 3.2 MG/DL (2.5-4.9) 3.3 MG/DL (2.5-4.9) Magnesium Level 2.4 MG/DL (1.8-2.4) 2.5 MG/DL (1.8-2.4) Total Bilirubin 0.6 MG/DL (0.2-1.0) 0.8 MG/DL (0.2-1.0) Aspartate Amino Transf (AST/SGOT) 93 U/L (15-37) 77 U/L (15-37) Alanine Aminotransferase (ALT/SGPT) 12 U/L (12-78) 14 U/L (12-78) Alkaline Phosphatase 263 U/L (46-116) 253 U/L (46-116) C-Reactive Protein, Quantitative 44.6 mg/dL (0.00-0.90) Pro-B-Type Natriuretic Peptide 3258 pg/mL (0-125) Total Protein 5.4 G/DL (6.4-8.2) 5.8 G/DL (6.4-8.2) Albumin 1.5 G/DL (3.4-5.0) 1.5 G/DL (3.4-5.0) Globulin 3.9 g/dL 4.3 g/dL Albumin/Globulin Ratio 0.4 (1.0-2.7) 0.3 (1.0-2.7) Triglycerides Level 141 MG/DL (30-150) Cholesterol Level 71 MG/DL (< 200) LDL Cholesterol 31 mg/dL (<100) HDL Cholesterol 18 MG/DL (40-60) Cholesterol/HDL Ratio 3.9 (3.3-4.4) Vitamin B12 Level > 2000 PG/ML (193-986) Folate 14.4 NG/ML (8.6-58.9) D-Dimer 13.00 mg/L FEU (0.00-0.49) Uric Acid 6.2 MG/DL (2.6-7.2) Lactate Dehydrogenase 668 U/L (81-234) Thyroid Stimulating Hormone (TSH) 0.370 uiU/mL (0.358-3.740) Vancomycin Level Trough 15.3 ug/mL (5.0-12.0) Test 09/20/19 08:13 09/20/19 09:45 09/20/19 20:02 Arterial Blood pH 7.094 (7.350-7.450) 7.172 (7.350-7.450) Arterial Blood Partial Pressure CO2 64.5 mmHg (35.0-45.0) 47.3 mmHg (35.0-45.0) Arterial Blood Partial Pressure O2 138.7 mmHg (75.0-100.0) 219.3 mmHg (75.0-100.0) Arterial Blood HCO3 19.3 mmol/L (22.0-26.0) 16.9 mmol/L (22.0-26.0) Arterial Blood Oxygen Saturation 98.1 % (95-100) 99.4 % (95-100) Arterial Blood Base Excess -10.5 (-2-2) -11 (-2-2) Ming Test Positive Positive White Blood Count 10.8 K/UL (4.8-10.8) Red Blood Count 3.29 M/UL (4.20-5.40) Hemoglobin 9.0 G/DL (12.0-16.0) Hematocrit 27.6 % (37.0-47.0) Mean Corpuscular Volume 84 FL (80-99) Mean Corpuscular Hemoglobin 27.4 PG (27.0-31.0) Mean Corpuscular Hemoglobin Concent 32.6 G/DL (32.0-36.0) Red Cell Distribution Width 18.4 % (11.6-14.8) Platelet Count 249 K/UL (150-450) Mean Platelet Volume 5.2 FL (6.5-10.1) Neutrophils (%) (Auto) 80.3 % (45.0-75.0) Lymphocytes (%) (Auto) 12.3 % (20.0-45.0) Monocytes (%) (Auto) 5.2 % (1.0-10.0) Eosinophils (%) (Auto) 0.0 % (0.0-3.0) Basophils (%) (Auto) 2.1 % (0.0-2.0) Sodium Level 141 MMOL/L (136-145) Potassium Level 4.7 MMOL/L (3.5-5.1) Chloride Level 107 MMOL/L (98-107) Carbon Dioxide Level 17 MMOL/L (21-32) Anion Gap 17 mmol/L (5-15) Blood Urea Nitrogen 51 mg/dL (7-18) Creatinine 1.8 MG/DL (0.55-1.30) Estimat Glomerular Filtration Rate 27.6 mL/min (>60) Glucose Level 194 MG/DL (74-106) Calcium Level 8.1 MG/DL (8.5-10.1) Phosphorus Level 4.9 MG/DL (2.5-4.9) Magnesium Level 2.4 MG/DL (1.8-2.4) Total Bilirubin 0.8 MG/DL (0.2-1.0) Aspartate Amino Transf (AST/SGOT) 79 U/L (15-37) Alanine Aminotransferase (ALT/SGPT) 13 U/L (12-78) Alkaline Phosphatase 255 U/L (46-116) Total Protein 5.9 G/DL (6.4-8.2) Albumin 1.6 G/DL (3.4-5.0) Globulin 4.3 g/dL Albumin/Globulin Ratio 0.4 (1.0-2.7) Height (Feet): 5 Height (Inches): 4.00 Weight (Pounds): 141 Objective Physical Exam: Vitals: reviewed General: NAD HEENT: nc, at Neck: supple Chest: clear breath sounds bilaterally, nc+ Cardiovascular: RRR, no s3, s4 Abdomen: soft, nontender, nd Extremities: no cce, normal range of motion +arm swelling bilaterally, picc+ Neuro: alert and oriented Marito Reza MD Sep 20, 2019 20:42
--- NOTE | 2019-09-20 20:57 | General Progress Note ---
Assessment/Plan Assessment/Plan: Assessment - Anemia - recent duodenal polyp bleed, ? details, ?? metastatic CA - Metastatic BRCA - Hypotension - Respiratory distress - Poor px Recommendations - Get records from [facility] - daily CBC - supportive care - BIPAP - IV IRON - IV PPI - no endoscopy planned at this time Subjective Allergies: Coded Allergies: No Known Allergies (Unverified , 09/15/19) Subjective Above noted d/w RN Transferred to ICU on BIPAP when seen this am COVID X 2 negative Objective Last 24 Hour Vital Signs Date Time Temp Pulse Resp B/P (MAP) Pulse Ox O2 Delivery O2 Flow Rate FiO2 09/20/19 19:21 86 15 100 100 09/20/19 18:09 15.0 100 09/20/19 18:00 90 14 94/34 (54) 100 09/20/19 18:00 106/56 09/20/19 17:00 102/52 09/20/19 17:00 87 18 90/42 (58) 100 09/20/19 16:21 98/33 09/20/19 16:00 98.6 93 18 97/43 (61) 100 09/20/19 16:00 15.0 100 09/20/19 16:00 97 09/20/19 16:00 Bi-pap 15.0 09/20/19 15:09 93 18 98/33 (54) 100 09/20/19 14:40 94 17 100 100 09/20/19 14:00 93 18 86/63 (71) 100 09/20/19 14:00 15.0 100 09/20/19 13:00 95 20 103/30 (54) 98 09/20/19 12:41 83/29 09/20/19 12:00 97.8 97 19 106/35 (58) 100 09/20/19 12:00 15.0 100 09/20/19 12:00 Bi-pap 15.0 09/20/19 12:00 97 09/20/19 11:51 108 20 96 Bi-Pap 100 09/20/19 11:49 108 20 96 100 09/20/19 11:16 83/29 09/20/19 11:00 15.0 100 09/20/19 11:00 96 26 86/30 (48) 98 09/20/19 10:30 102 18 82/46 (58) 100 09/20/19 10:15 99 18 71/47 (55) 100 09/20/19 10:00 102 18 92/47 (62) 100 09/20/19 09:45 97.0 100 18 83/37 (52) 100 09/20/19 09:30 97.0 100 18 85/43 (57) 100 09/20/19 08:19 97.0 100 18 86/37 (53) 100 09/20/19 08:18 100 20 09/20/19 08:15 97.0 100 18 89/40 (56) 100 09/20/19 08:10 97.0 100 18 99/34 (55) 100 09/20/19 08:00 Non-Rebreather 15.0 09/20/19 08:00 100 09/20/19 08:00 97.0 100 18 73/26 (42) 100 09/20/19 04:00 97.6 106 18 109/60 (76) 97 09/20/19 04:00 107 09/20/19 04:00 15.0 09/20/19 04:00 Non-Rebreather 15.0 09/20/19 00:00 96.3 102 18 104/58 (73) 99 09/20/19 00:00 104 09/20/19 00:00 15.0 09/20/19 00:00 Non-Rebreather 15.0 Intake and Output 09/19/19 09/20/19 19:00 07:00 Intake Total 1258.708 ml 650 ml Output Total 100 ml 100 ml Balance 1158.708 ml 550 ml Intake Oral 300 ml IV Total 958.708 ml 650 ml Output Urine Total 100 ml 100 ml # Bowel Movements 2 1 Laboratory Tests 09/20/19 08:13: Arterial Blood pH 7.094*L, Arterial Blood Partial Pressure CO2 64.5*H, Arterial Blood Partial Pressure O2 138.7H, Arterial Blood HCO3 19.3L, Arterial Blood Oxygen Saturation 98.1, Arterial Blood Base Excess -10.5*L, Ming Test Positive 09/20/19 09:45: White Blood Count 10.8, Red Blood Count 3.29L, Hemoglobin 9.0L, Hematocrit 27.6L , Mean Corpuscular Volume 84, Mean Corpuscular Hemoglobin 27.4, Mean Corpuscular Hemoglobin Concent 32.6, Red Cell Distribution Width 18.4H, Platelet Count 249, Mean Platelet Volume 5.2L, Neutrophils (%) (Auto) 80.3H, Lymphocytes (%) (Auto) 12.3L, Monocytes (%) (Auto) 5.2, Eosinophils (%) (Auto) 0.0, Basophils (%) (Auto) 2.1H, Sodium Level 141, Potassium Level 4.7, Chloride Level 107, Carbon Dioxide Level 17L, Anion Gap 17H, Blood Urea Nitrogen 51H, Creatinine 1.8#H, Estimat Glomerular Filtration Rate 27.6, Glucose Level 194H, Calcium Level 8.1L, Phosphorus Level 4.9, Magnesium Level 2.4, Total Bilirubin 0.8, Aspartate Amino Transf (AST/SGOT) 79H, Alanine Aminotransferase (ALT/SGPT) 13, Alkaline Phosphatase 255H, Total Protein 5.9L, Albumin 1.6L, Globulin 4.3, Albumin/Globulin Ratio 0.4L 09/20/19 20:02: Arterial Blood pH 7.172*L, Arterial Blood Partial Pressure CO2 47.3H, Arterial Blood Partial Pressure O2 219.3H, Arterial Blood HCO3 16.9*L, Arterial Blood Oxygen Saturation 99.4, Arterial Blood Base Excess -11*L, Ming Test Positive Height (Feet): 5 Height (Inches): 4.00 Weight (Pounds): 141 Objective Elderly woman (+) BIPAP mask minimally responsive supple Coarse BS RR abd soft ND NT no edema Pati Gutiérrez MD Sep 20, 2019 20:57
[2019-09-20] MEDS: Iron Sucrose 100 MG in NS 55 ML IV SCH (21:00)
[2019-09-20] MEDS ORDERED: Sennosides 8.6mg tab ORAL SCH (21:00)
[2019-09-20] MEDS ORDERED: Doxycycline Monohydrate 100mg ORAL SCH (21:00)
--- NOTE | 2019-09-20 21:00 | NUR ---
NURSE NOTES: BS 138 NO COVERAGE
[2019-09-20] MEDS: Dyna-Hex 2% Top Sol 2oz TOPIC SCH (21:53)
--- NOTE | 2019-09-20 23:07 | Diagnostic Imaging Report ---
EXAM: XR Abdomen, 2 Views CLINICAL HISTORY: NGT TECHNIQUE: Frontal view of the abdomen/pelvis with upright view of the abdomen. COMPARISON: 09/18/2019 FINDINGS: Lower thorax: Lung bases poorly evaluated, multifocal opacities again seen. Please refer to chest radiograph for discussion. Retrocardiac atelectasis or consolidation similar since prior. Intraperitoneal space: No free air. Gastrointestinal tract: Nonobstructive bowel gas pattern. Bones/joints: Ill-defined 1.4 cm radiopaque structure in the right lower quadrant superimposed over the iliac wing of uncertain significance, recommend outpatient cross-sectional imaging to further evaluate if there is clinical concern. Severe osteopenia with multilevel likely compression fractures in the spine, chronicity uncertain given lack of comparison studies. Tubes, lines and devices: Enteric tube with tip and proximal sideport below the gastroesophageal junction. Right upper extremity PICC, tip in the region of the mid SVC. Kellogg catheter projects over the pelvis. IMPRESSION: 1. Enteric tube with tip and proximal sideport below the gastroesophageal junction. 2. Right upper extremity PICC, tip in the region of the mid SVC. 3. Kellogg catheter projects over the pelvis. 4. Lung bases poorly evaluated, multifocal opacities again seen. Please refer to chest radiograph for discussion. 5. Retrocardiac atelectasis or consolidation similar since prior. 6. Nonobstructive bowel gas pattern. 7. Ill-defined 1.4 cm radiopaque structure in the right lower quadrant superimposed over the iliac wing of uncertain significance, recommend outpatient cross-sectional imaging to further evaluate if there is clinical concern. 8. Severe osteopenia with multilevel likely compression fractures in the spine, chronicity uncertain given lack of comparison studies.
[2019-09-21] VITALS (54 sets, daily range): BP systolic 86–156; BP diastolic 34–60
--- NOTE | 2019-09-21 | NUR ---
NURSE NOTES: REPOSITION AND SUCTION
[2019-09-21 04:48] LABS: EOSINOPHILS % (AUTO) 0.1 % (0.0-3.0); HEMOGLOBIN 8.2 G/DL (12.0-16.0); MEAN CORPUSCULAR VOLUME 83 FL (80-99); MONOCYTES % (AUTO) 5.4 % (1.0-10.0); NEUTROPHILS % (AUTO) 82.5 % (45.0-75.0); PLATELET COUNT 230 K/UL (150-450); RED BLOOD COUNT 3.01 M/UL (4.20-5.40); RED CELL DISTRIBUTION WIDTH 17.7 % (11.6-14.8); WHITE BLOOD COUNT 9.2 K/UL (4.8-10.8)
[2019-09-21 05:36] LABS: ALBUMIN 1.9 G/DL (3.4-5.0); ALBUMIN/GLOBULIN RATIO 0.5 (1.0-2.7); ALKALINE PHOSPHATASE 236 U/L (46-116); ANION GAP 16 mmol/L (5-15); ASPARTATE AMINO TRANSFERASE 74 U/L (15-37); BILIRUBIN,TOTAL 0.8 MG/DL (0.2-1.0); BLOOD UREA NITROGEN 55 mg/dL (7-18); CALCIUM 7.5 MG/DL (8.5-10.1); CARBON DIOXIDE 18 MMOL/L (21-32); CHLORIDE 106 MMOL/L (98-107); CREATININE 2.3 MG/DL (0.55-1.30); SODIUM 140 MMOL/L (136-145)
[2019-09-21] MEDS: NovoLOG Insulin Flexpen SUBQ SCH ×4 (05:37→21:00)
--- NOTE | 2019-09-21 06:00 | NUR ---
NURSE NOTES: pt nan verbal obtunded on b-pap 15 100 %fio2 no acute resp distress moviing upper extrimeties but weakON DOPO DRIP AT 4MCG/KG/MIN
[2019-09-21] MEDS ORDERED: sitaGLIPtin 50mg tab ORAL SCH (06:30)
[2019-09-21 06:35] LABS: ALANINE AMINOTRANSFERASE 14 U/L (12-78)
--- NOTE | 2019-09-21 07:30 | NUR ---
NURSE NOTES: Received report from Austin Hamilton RN. Patient asleep in bed, drowsy, responsive to verbal stimuli, unable to make needs known and follow simple commands. NSR 86 on facing baster jumpbasting. Receiving O2 via bi-pap with settings of 15/5, FiO2 100%, respirations even and unlabored. Left NGT in place for meds, no residuals noted. Kellogg catheter patent. Right upper arm PICC infusing dopamine @ 4 mcg/kg/min, only 1 lumen is patent. Right hand 22g IV site infusing 1/2NS @ 50 cc/hr and Zosyn 3.375g @ 25 cc/hr, asymptomatic. Bed locked in lowest position with padded side rails up x 3. All needs attended to. Call light within reach. Will continue to monitor.
--- NOTE | 2019-09-21 07:51 | NUR ---
NURSE NOTES: Patient noted with PO meds but unable to swallow at this time, requested for pharmacy to change med routes to NGT.
[2019-09-21] MEDS ORDERED: Acetaminophen 650mg/20.3ml GT PRN ×2 (08:15→08:30)
[2019-09-21] MEDS ORDERED: HYDROcodone/Acetamin 10/325 tab GT PRN (08:15)
--- NOTE | 2019-09-21 08:26 | NUR ---
RADIOLOGY DEPT., CHEST X-RAY DONE.-P.DYE
[2019-09-21] MEDS ORDERED: Docusate 100mg/10ml Liq GT PRN (08:30)
--- NOTE | 2019-09-21 08:35 | NUR ---
NURSE NOTES: Patient's FiO2 decreased to 60% per Cynthia, RT, post ABG on FiO2 100%. Will continue to monitor.
[2019-09-21] MEDS: Pantoprazole Inj IVP SCH ×2 (08:53→21:00)
[2019-09-21] MEDS: Sucralfate 1gm tab GT SCH ×4 (08:53→20:59)
[2019-09-21] MEDS: Midodrine 10mg tab GT SCH ×3 (08:53→17:22)
[2019-09-21] MEDS: Doxycycline Monohydrate 100mg GT SCH ×2 (08:53→21:00)
[2019-09-21] MEDS: Gabapentin 300 MG/6 ML Soln GT SCH ×3 (09:15→17:22)
--- NOTE | 2019-09-21 09:23 | Diagnostic Imaging Report ---
Procedure: XRAY Chest 1v Reason for study: Shortness of breath. Comparison films: 09/18/2019. FINDINGS: There is a new NG tube in the stomach. Vascularity is normal. Bilateral alveolar densities noted but perhaps slightly improved with improved aeration. Cardiac and mediastinal silhouette are within normal limits. Small effusions remain. The bony thorax appear unremarkable. IMPRESSION: New NG tube in place. Mildly improved aeration bilaterally.
--- NOTE | 2019-09-21 09:34 | NUR ---
NURSE NOTES: Dr. Basilio updated on patient's status, patient is still oliguric with output of 0-5 cc/hr via zpaata catheter, no new orders received.
--- NOTE | 2019-09-21 09:50 | NUR ---
NURSE NOTES: ABG results reported to Dr. Mckee, updated on patient's status, more awake and alert, still on dopamine drip and Bipap FiO2 decreased to 60%. No new orders received.
--- NOTE | 2019-09-21 10:10 | NUR ---
TRAVERSE ROD ASSEMBLER NOTE PEr chart review, pt is non-verbal and is on bipap. Pt is from [address], [place] [address]. Pt's emergency contacts listed: Apryl Matos (sister) [phone] (no answer no vm option, home phone), Des Pollack () [phone] (primarily Croatian speaking). Denia (daughter) [phone] (incorrect number) SW spoke w/ Des Pollack, through one of his bilingual neighbors, stating that he resides w/ pt for 42 years. There is no other family members in [facility]. Pt's sister, Apryl Matos will be the primary decision maker if pt cannot make one. LASHAWN attempted to reach [phone], no answer no vm option. Per Des, such number is home number.
--- NOTE | 2019-09-21 11:00 | NUR ---
NURSE NOTES: Patient turned and repositioned. VSS. Dopamine at 4 mcg/kg/min. Will continue to monitor.
--- NOTE | 2019-09-21 11:06 | Pulmonology Progress Note ---
Subjective ROS Limited/Unobtainable: Yes Interval Events: On BiPAP in ICU Constitutional: Reports: other - + bipap ; Denies: fever HEENT: Repors: no symptoms Respiratory: Reports: no symptoms Cardiovascular: Reports: no symptoms Gastrointestinal/Abdominal: Denies: nausea, vomiting, diarrhea Psychiatric: Reports: other - NA Skin: Denies: rash Musculoskeletal: Denies: pain Allergies: Coded Allergies: No Known Allergies (Unverified , 09/15/19) Objective Last 24 Hour Vital Signs Date Time Temp Pulse Resp B/P (MAP) Pulse Ox O2 Delivery O2 Flow Rate FiO2 09/21/19 08:00 72 09/21/19 07:24 89 16 100 80 09/21/19 06:00 90 16 110/45 (66) 100 09/21/19 06:00 117/41 09/21/19 05:30 87 16 117/41 (66) 100 09/21/19 05:00 106/39 09/21/19 05:00 118 14 127/37 (67) 100 09/21/19 04:30 125 14 125/37 (66) 100 09/21/19 04:00 15.0 100 09/21/19 04:00 112 09/21/19 04:00 104/39 09/21/19 04:00 98.8 116 14 122/47 (72) 100 09/21/19 04:00 Bi-pap 15.0 09/21/19 03:30 120 14 116/40 (65) 100 09/21/19 03:00 116 14 127/37 (67) 100 09/21/19 03:00 123/41 09/21/19 02:50 91 20 100 80 09/21/19 02:30 120 14 122/40 (67) 100 09/21/19 02:00 110 14 130/45 (73) 100 09/21/19 02:00 116/36 09/21/19 01:30 127 14 127/37 (67) 100 09/21/19 01:00 114 14 143/40 (74) 100 09/21/19 01:00 143/39 09/21/19 00:30 115 14 143/40 (74) 100 09/21/19 00:00 15.0 100 09/21/19 00:00 114 14 106/40 (62) 100 09/21/19 00:00 Bi-pap 15.0 09/21/19 00:00 98.6 116 14 136/60 (85) 100 09/21/19 00:00 127/37 09/21/19 00:00 114 09/20/19 23:30 110 14 116/34 (61) 100 09/20/19 23:16 89 18 100 100 09/20/19 23:00 114 14 100/26 (50) 100 09/20/19 23:00 141/28 09/20/19 22:30 112 14 94/34 (54) 100 09/20/19 22:00 109 14 110/41 (64) 100 09/20/19 22:00 90/40 09/20/19 21:45 98 14 100/34 (56) 100 09/20/19 21:30 80 14 94/34 (54) 100 09/20/19 21:15 82 14 88/0 (29) 100 09/20/19 21:00 88/32 09/20/19 21:00 82 14 94/34 (54) 100 09/20/19 20:45 83 16 86/40 (55) 100 09/20/19 20:30 85 14 98/40 (59) 100 09/20/19 20:00 Bi-pap 15.0 09/20/19 20:00 15.0 100 09/20/19 20:00 98.6 82 18 96/40 (58) 100 09/20/19 20:00 86 09/20/19 19:45 95 14 94/34 (54) 100 09/20/19 19:30 90 16 90/40 (57) 100 09/20/19 19:21 86 15 100 100 09/20/19 19:15 90 14 86/34 (51) 100 09/20/19 19:00 97/33 09/20/19 19:00 86 16 94/34 (54) 100 09/20/19 18:09 15.0 100 09/20/19 18:00 90 14 94/34 (54) 100 09/20/19 18:00 106/56 09/20/19 17:00 102/52 09/20/19 17:00 87 18 90/42 (58) 100 09/20/19 16:21 98/33 09/20/19 16:00 98.6 93 18 97/43 (61) 100 09/20/19 16:00 15.0 100 09/20/19 16:00 97 09/20/19 16:00 Bi-pap 15.0 09/20/19 15:09 93 18 98/33 (54) 100 09/20/19 14:40 94 17 100 100 09/20/19 14:00 93 18 86/63 (71) 100 09/20/19 14:00 15.0 100 09/20/19 13:00 95 20 103/30 (54) 98 09/20/19 12:41 83/29 09/20/19 12:00 97.8 97 19 106/35 (58) 100 09/20/19 12:00 15.0 100 09/20/19 12:00 Bi-pap 15.0 09/20/19 12:00 97 09/20/19 11:51 108 20 96 Bi-Pap 100 09/20/19 11:49 108 20 96 100 09/20/19 11:16 83/29 Intake and Output 09/20/19 09/21/19 18:59 06:59 Intake Total 123.984 ml 889.527 ml Output Total 0 ml 26 ml Balance 123.984 ml 863.527 ml Intake Oral 0 ml 0 ml Free Water 50 ml IV Total 123.984 ml 839.527 ml Output Urine Total 0 ml 25 ml Stool Total 1 ml # Bowel Movements 1 General Appearance: no acute distress HEENT: normocephalic Respiratory: chest wall non-tender, decreased breath sounds Cardiovascular: normal peripheral pulses Abdomen: normal bowel sounds, soft, non tender Extremities: no cyanosis Microbiology Date/Time Source Procedure Growth Status 09/18/19 11:45 Nasopharynx Coronavirus COVID-19 PCR (KRISTINA) - Final Complete Laboratory Tests 09/20/19 20:02: Arterial Blood pH 7.172*L, Arterial Blood Partial Pressure CO2 47.3H, Arterial Blood Partial Pressure O2 219.3H, Arterial Blood HCO3 16.9*L, Arterial Blood Oxygen Saturation 99.4, Arterial Blood Base Excess -11*L, Ming Test Positive 09/21/19 03:45: White Blood Count 9.2, Red Blood Count 3.01L, Hemoglobin 8.2L, Hematocrit 25.0L , Mean Corpuscular Volume 83, Mean Corpuscular Hemoglobin 27.4, Mean Corpuscular Hemoglobin Concent 33.0, Red Cell Distribution Width 17.7H, Platelet Count 230, Mean Platelet Volume 5.1L, Neutrophils (%) (Auto) 82.5H, Lymphocytes (%) (Auto) 11.0L, Monocytes (%) (Auto) 5.4, Eosinophils (%) (Auto) 0.1, Basophils (%) (Auto) 1.0, Sodium Level 140, Potassium Level 4.0, Chloride Level 106, Carbon Dioxide Level 18L, Anion Gap 16H, Blood Urea Nitrogen 55H, Creatinine 2.3H, Estimat Glomerular Filtration Rate 20.8, Glucose Level 219H, Calcium Level 7.5L, Phosphorus Level 4.6, Total Bilirubin 0.8, Aspartate Amino Transf (AST/SGOT) 74H, Alanine Aminotransferase (ALT/SGPT) 14, Alkaline Phosphatase 236H, Total Protein 5.7L, Albumin 1.9L, Globulin 3.8, Albumin/ Globulin Ratio 0.5L 09/21/19 07:56: Arterial Blood pH 7.256L, Arterial Blood Partial Pressure CO2 35.1, Arterial Blood Partial Pressure O2 184.0H, Arterial Blood HCO3 15.3*L, Arterial Blood Oxygen Saturation 98.7, Arterial Blood Base Excess -10.9*L, Ming Test Positive Current Medications Medications (Trade) Dose Ordered Sig/Galina Route PRN Reason Start Time Stop Time Status Last Admin Dose Admin Acetaminophen (Tylenol) 650 mg Q6H PRN GT For Headache 09/21/19 08:15 10/21/19 08:14 Acetaminophen (Tylenol) 650 mg Q6H PRN GT Temp >100.5 09/21/19 08:30 10/21/19 08:29 Acetaminophen/ Hydrocodone Bitart ([place] 10/325) 1 tab Q4H PRN GT For Severe Pain 09/21/19 08:15 09/27/19 12:42 Bisacodyl (Dulcolax) 10 mg DAILYPRN PRN RECTAL Constipation 09/21/19 06:30 12/15/19 06:29 Chlorhexidine Gluconate (Myra-Hex 2%) 1 applic DAILY@1999 TOPIC 09/20/19 20:00 12/16/19 19:59 09/20/19 21:53 Dextrose (Dextrose 50%) 25 ml Q30M PRN IV Hypoglycemia 09/20/19 12:42 12/19/19 12:41 Dextrose (Dextrose 50%) 50 ml Q30M PRN IV Hypoglycemia 09/20/19 12:42 12/19/19 12:41 Docusate Sodium (Colace) 100 mg TID PRN GT Constipation 09/21/19 08:30 10/21/19 08:29 Dopamine HCl/ Dextrose 250 ml @ 0 mls/hr Q24H IV 09/20/19 12:41 12/19/19 12:40 09/20/19 16:21 Doxycycline Monohydrate (Doxycycline Monohydrate) 100 mg EVERY 12 HOURS GT 09/21/19 09:00 09/27/19 20:59 09/21/19 08:53 Gabapentin (Neurontin) 300 mg TID GT 09/21/19 09:00 10/21/19 08:59 09/21/19 09:15 Insulin Aspart (NovoLOG) BEFORE MEALS AND HS SUBQ 09/20/19 16:30 12/15/19 07:29 Iron Sucrose 100 mg/Sodium Chloride 60 ml @ 240 mls/hr BEDTIME IV 09/20/19 21:00 09/21/19 21:14 09/20/19 21:00 Lactulose (Cephulac) 20 gm QIDPRN PRN ORAL Constipation if colace is inef 09/20/19 12:43 10/20/19 12:42 Midodrine (Pro-Amatine) 10 mg THREE TIMES A DAY GT 09/21/19 09:00 12/19/19 09:59 09/21/19 08:53 Ondansetron HCl (Zofran ODT) 4 mg Q8H PRN ORAL Nausea & Vomiting 09/20/19 12:43 10/20/19 12:42 Pantoprazole (Protonix) 40 mg EVERY 12 HOURS IVP 09/20/19 21:00 10/16/19 20:59 09/21/19 08:53 Piperacillin Sod/ Tazobactam Sod 3.375 gm/Dextrose 100 ml @ 25 mls/hr EVERY 8 HOURS IVPB 09/20/19 14:00 09/25/19 13:59 09/21/19 05:36 Sennosides (Senokot) 8.6 mg QHS GT 09/21/19 21:00 10/16/19 20:59 Sitagliptin Phosphate (Januvia) 50 mg ACBREAKFAST GT 09/22/19 06:30 10/16/19 06:29 Sodium Chloride 1,000 ml @ 50 mls/hr Q20H IV 09/20/19 12:41 10/20/19 12:40 09/21/19 03:57 Sucralfate (Carafate) 1 gm FOUR TIMES A DAY GT 09/21/19 09:00 12/15/19 20:59 09/21/19 08:53 Vancomycin HCl (Vanco pharmacy to dose) 1 ea DAILY PRN MISC Per rx protocol 09/21/19 09:00 10/16/19 12:14 Vancomycin HCl 1 gm/Dextrose 275 ml @ 183.708 mls/hr Q24H IVPB 09/20/19 17:30 09/23/19 17:29 Assessment/Plan Assessment/Plan IMPRESSION: 1. Right lung pneumonia. 2. Left pleural effusion. 3. History of breast carcinoma. 4. Severe anemia. S/p prbc 5. History of previous GI bleed. 6. Diabetes mellitus. 7. Hypertension. 8. bacteremia; likely contaminant 9. COVID -19 pcr x 1 negative DISCUSSION: Reviewed labs S/p PICC line. Seen by ID; on broad-spectrum antibiotics. Continue home medications. I will follow carefully. Has negative repeat COVID 19 pcr On NRBM Continue in ICU Mandi Roth Omar Syed MD Sep 21, 2019 11:06
--- NOTE | 2019-09-21 11:56 | NUR ---
*-* INSURANCE *-* UPDATED CLINICALS HAVE BEEN FAXED TO: [facility] [phone] FAX [phone] Work
--- NOTE | 2019-09-21 12:11 | NUR ---
NURSE NOTES: Blood glucose 208, insulin held d/t patient not eating. Will continue to monitor.
--- NOTE | 2019-09-21 12:28 | Nephrology Progress Note ---
Assessment/Plan Problem List: (1) DAVID (acute kidney injury) Assessment: Partly GI bleed (2) Hypernatremia Assessment: Partly dehydration (3) Anemia (4) GI bleed Assessment: Due to GI bleed (5) Metastatic cancer Assessment: Breast with bone metastasis (6) Suspected 2019 novel coronavirus infection (7) Hypoalbuminemia (8) DMII (diabetes mellitus, type 2) Assessment This patient is 74-year-old female who presents with fever and is a alf residence in which there is a high risk of COVID-19 Renal failure, most likely prerenal azotemia secondary to GI bleed, Hypernatremia most likely secondary to dehydration Severe anemia most likely due to GI bleed, patient has history of bleeding polyp in her duodenum. Metastatic breast cancer. Pathological fracture of the humerus had to undergo ORIF History of hypertension History of diabetes mellitus History of seizures Possible UTI Severe hypoalbuminemia Plan September 20: Patient now in ICU. On BiPAP. Lethargic. Renal failure worsening. Patient remains full code. On dopamine. Discussed with RN. Will continue to monitor renal parameters and urine output. Further worsening of renal parameters may require hemodialysis treatment. Will discuss with consultants. September 19: Patient oliguric. Patient lethargic. Today's labs is pending. Blood pressure is low. Will give IV boluses. Midodrine. Patient remains full code. Overall prognosis is poor. Previously: P.o. intake poor Today's blood results reviewed. BUN and creatinine improved Meanwhile: Kellogg catheter Slow hydration with one half normal saline 50 cc an hour Monitor renal parameters, hemoglobin, urine output Keep the blood pressure and blood sugar in check Per orders Chest x-ray: Left-sided pleural effusion left greater than right interstitial and airspace infiltrates versus edema Subjective ROS Limited/Unobtainable: Yes Constitutional: Reports: malaise, weakness Objective Objective Last 24 Hour Vital Signs Date Time Temp Pulse Resp B/P (MAP) Pulse Ox O2 Delivery O2 Flow Rate FiO2 09/21/19 12:00 93 09/21/19 11:28 89 16 100 60 09/21/19 08:00 Bi-pap 09/21/19 08:00 72 09/21/19 08:00 100 09/21/19 07:24 89 16 100 80 09/21/19 06:00 90 16 110/45 (66) 100 09/21/19 06:00 117/41 09/21/19 05:30 87 16 117/41 (66) 100 09/21/19 05:00 106/39 09/21/19 05:00 118 14 127/37 (67) 100 09/21/19 04:30 125 14 125/37 (66) 100 09/21/19 04:00 15.0 100 09/21/19 04:00 112 09/21/19 04:00 104/39 09/21/19 04:00 98.8 116 14 122/47 (72) 100 09/21/19 04:00 Bi-pap 15.0 09/21/19 03:30 120 14 116/40 (65) 100 09/21/19 03:00 116 14 127/37 (67) 100 09/21/19 03:00 123/41 09/21/19 02:50 91 20 100 80 09/21/19 02:30 120 14 122/40 (67) 100 09/21/19 02:00 110 14 130/45 (73) 100 09/21/19 02:00 116/36 09/21/19 01:30 127 14 127/37 (67) 100 09/21/19 01:00 114 14 143/40 (74) 100 09/21/19 01:00 143/39 09/21/19 00:30 115 14 143/40 (74) 100 09/21/19 00:00 15.0 100 09/21/19 00:00 114 14 106/40 (62) 100 09/21/19 00:00 Bi-pap 15.0 09/21/19 00:00 98.6 116 14 136/60 (85) 100 09/21/19 00:00 127/37 09/21/19 00:00 114 09/20/19 23:30 110 14 116/34 (61) 100 09/20/19 23:16 89 18 100 100 09/20/19 23:00 114 14 100/26 (50) 100 09/20/19 23:00 141/28 09/20/19 22:30 112 14 94/34 (54) 100 09/20/19 22:00 109 14 110/41 (64) 100 09/20/19 22:00 90/40 09/20/19 21:45 98 14 100/34 (56) 100 09/20/19 21:30 80 14 94/34 (54) 100 09/20/19 21:15 82 14 88/0 (29) 100 09/20/19 21:00 88/32 09/20/19 21:00 82 14 94/34 (54) 100 09/20/19 20:45 83 16 86/40 (55) 100 09/20/19 20:30 85 14 98/40 (59) 100 09/20/19 20:00 Bi-pap 15.0 09/20/19 20:00 15.0 100 09/20/19 20:00 98.6 82 18 96/40 (58) 100 09/20/19 20:00 86 09/20/19 19:45 95 14 94/34 (54) 100 09/20/19 19:30 90 16 90/40 (57) 100 09/20/19 19:21 86 15 100 100 09/20/19 19:15 90 14 86/34 (51) 100 09/20/19 19:00 97/33 09/20/19 19:00 86 16 94/34 (54) 100 09/20/19 18:09 15.0 100 09/20/19 18:00 90 14 94/34 (54) 100 09/20/19 18:00 106/56 09/20/19 17:00 102/52 09/20/19 17:00 87 18 90/42 (58) 100 09/20/19 16:21 98/33 09/20/19 16:00 98.6 93 18 97/43 (61) 100 09/20/19 16:00 15.0 100 09/20/19 16:00 97 09/20/19 16:00 Bi-pap 15.0 09/20/19 15:09 93 18 98/33 (54) 100 09/20/19 14:40 94 17 100 100 09/20/19 14:00 93 18 86/63 (71) 100 09/20/19 14:00 15.0 100 09/20/19 13:00 95 20 103/30 (54) 98 09/20/19 12:41 83/29 Intake and Output 09/20/19 09/21/19 19:00 07:00 Intake Total 185.976 ml 827.535 ml Output Total 0 ml 26 ml Balance 185.976 ml 801.535 ml Intake Oral 0 ml 0 ml Free Water 50 ml IV Total 185.976 ml 777.535 ml Output Urine Total 0 ml 25 ml Stool Total 1 ml # Bowel Movements 1 Laboratory Tests 09/20/19 20:02: Arterial Blood pH 7.172*L, Arterial Blood Partial Pressure CO2 47.3H, Arterial Blood Partial Pressure O2 219.3H, Arterial Blood HCO3 16.9*L, Arterial Blood Oxygen Saturation 99.4, Arterial Blood Base Excess -11*L, Ming Test Positive 09/21/19 03:45: White Blood Count 9.2, Red Blood Count 3.01L, Hemoglobin 8.2L, Hematocrit 25.0L , Mean Corpuscular Volume 83, Mean Corpuscular Hemoglobin 27.4, Mean Corpuscular Hemoglobin Concent 33.0, Red Cell Distribution Width 17.7H, Platelet Count 230, Mean Platelet Volume 5.1L, Neutrophils (%) (Auto) 82.5H, Lymphocytes (%) (Auto) 11.0L, Monocytes (%) (Auto) 5.4, Eosinophils (%) (Auto) 0.1, Basophils (%) (Auto) 1.0, Sodium Level 140, Potassium Level 4.0, Chloride Level 106, Carbon Dioxide Level 18L, Anion Gap 16H, Blood Urea Nitrogen 55H, Creatinine 2.3H, Estimat Glomerular Filtration Rate 20.8, Glucose Level 219H, Calcium Level 7.5L, Phosphorus Level 4.6, Total Bilirubin 0.8, Aspartate Amino Transf (AST/SGOT) 74H, Alanine Aminotransferase (ALT/SGPT) 14, Alkaline Phosphatase 236H, Total Protein 5.7L, Albumin 1.9L, Globulin 3.8, Albumin/ Globulin Ratio 0.5L 09/21/19 07:56: Arterial Blood pH 7.256L, Arterial Blood Partial Pressure CO2 35.1, Arterial Blood Partial Pressure O2 184.0H, Arterial Blood HCO3 15.3*L, Arterial Blood Oxygen Saturation 98.7, Arterial Blood Base Excess -10.9*L, Ming Test Positive Height (Feet): 5 Height (Inches): 4.00 Weight (Pounds): 141 General Appearance: mild distress EENT: other - On BiPAP Cardiovascular: tachycardia Respiratory/Chest: decreased breath sounds Abdomen: distended Iggy Basilio MD Sep 21, 2019 12:28
--- NOTE | 2019-09-21 12:49 | Hematology/Onc Progress Note ---
Assessment/Plan Assessment/Plan Assessment and Recs # Metastatic breast cancer -- at this time, has metastasis to the bone, need to obtain further history, have asked nurse to provide number to oncologist, will be calling them --> medications reviewed --> currently is not on any treatment inhouse --> consider chemo once discharged # Anemia rule out Gi bleeding --> anemia panel has been reviewed --> occult blood is pending --> as per gi eval--> ferritin is 1084 --> no hemolysis is noted --> okay for iv iron x 5 days --> blood tx: 09/16 --> hgb trend: 8.9 -->9->8.2 # Suspected 2019 novel coronavirus infection with pna --> abx: zosyn/ vanc --> smear is noted --> 09/17 cxr Slightly worsening interstitial thickening. Worsening bilateral lower lung airspace opacity, worse on the right. 2. Worsening small bilateral pleural effusions, worse on the right. # Fever likely due to sepsis --> per id abx -> smear is noted # Azotemia --> related to dehydration --> per renal # Resp failure is on bipap # Hypernatremia # DM2 The timing of this note does not necessarily reflect the time of the patient was seen. Greatly appreciate consultation. Subjective Constitutional: Denies: no symptoms, chills, fever, malaise, weakness, other HEENT: Denies: no symptoms, eye pain, blurred vision, tearing, double vision, ear pain, ear discharge, nose pain, nose congestion, throat pain, throat swelling, mouth pain, mouth swelling, other Cardiovascular: Denies: no symptoms, chest pain, edema, irregular heart rate, lightheadedness, palpitations, syncope, other Respiratory: Denies: no symptoms, cough, shortness of breath, SOB with excertion, SOB at rest, sputum, wheezing, other Gastrointestinal/Abdominal: Denies: no symptoms, abdomen distended, abdominal pain, black stools, tarry stools, blood in stool, constipated, diarrhea, difficulty swallowing, nausea, poor appetite, poor fluid intake, rectal bleeding , vomiting, other Genitourinary: Denies: no symptoms, burning, discharge, frequency, flank pain, hematuria, incontinence, pain, urgency, other Neurologic/Psychiatric: Denies: no symptoms, anxiety, depressed, emotional problems, headache, numbness, paresthesia, pre-existing deficit, seizure, tingling, tremors, weakness, other Endocrine: Denies: no symptoms, excessive sweating, flushing, intolerance to cold, intolerance to heat, increased hunger, increased thirst, increased urine, unexplained weight gain, unexplained weight loss, other Allergies: Coded Allergies: No Known Allergies (Unverified , 09/15/19) Subjective 09/17 s/p 1 unit blood and picc insertion , hgb improved to 8.9, iv iron and abx , no distress 09/18 no overnight events, labs pending, iv iron, nc 2l 09/19 remains at this time on zosyn and vanc, no bleeding, meds noted 09/20 remains lethargic, is on bipap, may need hd, as per renal care Objective Objective Current Medications Medications (Trade) Dose Ordered Sig/Galina Route PRN Reason Start Time Stop Time Status Last Admin Dose Admin Acetaminophen (Tylenol) 650 mg Q6H PRN GT For Headache 09/21/19 08:15 10/21/19 08:14 Acetaminophen (Tylenol) 650 mg Q6H PRN GT Temp >100.5 09/21/19 08:30 10/21/19 08:29 Acetaminophen/ Hydrocodone Bitart (Alpine 10/325) 1 tab Q4H PRN GT For Severe Pain 09/21/19 08:15 09/27/19 12:42 Bisacodyl (Dulcolax) 10 mg DAILYPRN PRN RECTAL Constipation 09/21/19 06:30 12/15/19 06:29 Chlorhexidine Gluconate (Myra-Hex 2%) 1 applic DAILY@1999 TOPIC 09/20/19 20:00 12/16/19 19:59 09/20/19 21:53 Dextrose (Dextrose 50%) 25 ml Q30M PRN IV Hypoglycemia 09/20/19 12:42 12/19/19 12:41 Dextrose (Dextrose 50%) 50 ml Q30M PRN IV Hypoglycemia 09/20/19 12:42 12/19/19 12:41 Docusate Sodium (Colace) 100 mg TID PRN GT Constipation 09/21/19 08:30 10/21/19 08:29 Dopamine HCl/ Dextrose 250 ml @ 0 mls/hr Q24H IV 09/20/19 12:41 12/19/19 12:40 09/20/19 16:21 Doxycycline Monohydrate (Doxycycline Monohydrate) 100 mg EVERY 12 HOURS GT 09/21/19 09:00 09/27/19 20:59 09/21/19 08:53 Gabapentin (Neurontin) 300 mg TID GT 09/21/19 09:00 10/21/19 08:59 09/21/19 09:15 Insulin Aspart (NovoLOG) BEFORE MEALS AND HS SUBQ 09/20/19 16:30 12/15/19 07:29 Iron Sucrose 100 mg/Sodium Chloride 60 ml @ 240 mls/hr BEDTIME IV 09/20/19 21:00 09/21/19 21:14 09/20/19 21:00 Lactulose (Cephulac) 20 gm QIDPRN PRN ORAL Constipation if colace is inef 09/20/19 12:43 10/20/19 12:42 Midodrine (Pro-Amatine) 10 mg THREE TIMES A DAY GT 09/21/19 09:00 12/19/19 09:59 09/21/19 08:53 Ondansetron HCl (Zofran ODT) 4 mg Q8H PRN ORAL Nausea & Vomiting 09/20/19 12:43 10/20/19 12:42 Pantoprazole (Protonix) 40 mg EVERY 12 HOURS IVP 09/20/19 21:00 10/16/19 20:59 09/21/19 08:53 Piperacillin Sod/ Tazobactam Sod 3.375 gm/Dextrose 100 ml @ 25 mls/hr EVERY 8 HOURS IVPB 09/20/19 14:00 09/25/19 13:59 09/21/19 05:36 Sennosides (Senokot) 8.6 mg QHS GT 09/21/19 21:00 10/16/19 20:59 Sitagliptin Phosphate (Januvia) 50 mg ACBREAKFAST GT 09/22/19 06:30 10/16/19 06:29 Sodium Chloride 1,000 ml @ 50 mls/hr Q20H IV 09/20/19 12:41 10/20/19 12:40 09/21/19 03:57 Sucralfate (Carafate) 1 gm FOUR TIMES A DAY GT 09/21/19 09:00 12/15/19 20:59 09/21/19 08:53 Vancomycin HCl (Vanco pharmacy to dose) 1 ea DAILY PRN MISC Per rx protocol 09/21/19 09:00 10/16/19 12:14 Vancomycin HCl 1 gm/Dextrose 275 ml @ 183.708 mls/hr Q24H IVPB 09/20/19 17:30 09/23/19 17:29 Last 24 Hour Vital Signs Date Time Temp Pulse Resp B/P (MAP) Pulse Ox O2 Delivery O2 Flow Rate FiO2 09/21/19 12:00 Bi-pap 09/21/19 12:00 93 09/21/19 12:00 60 09/21/19 11:28 89 16 100 60 09/21/19 08:00 Bi-pap 09/21/19 08:00 72 09/21/19 08:00 100 09/21/19 07:24 89 16 100 80 09/21/19 06:00 90 16 110/45 (66) 100 09/21/19 06:00 117/41 09/21/19 05:30 87 16 117/41 (66) 100 09/21/19 05:00 106/39 09/21/19 05:00 118 14 127/37 (67) 100 09/21/19 04:30 125 14 125/37 (66) 100 09/21/19 04:00 15.0 100 09/21/19 04:00 112 09/21/19 04:00 104/39 09/21/19 04:00 98.8 116 14 122/47 (72) 100 09/21/19 04:00 Bi-pap 15.0 09/21/19 03:30 120 14 116/40 (65) 100 09/21/19 03:00 116 14 127/37 (67) 100 09/21/19 03:00 123/41 09/21/19 02:50 91 20 100 80 09/21/19 02:30 120 14 122/40 (67) 100 09/21/19 02:00 110 14 130/45 (73) 100 09/21/19 02:00 116/36 09/21/19 01:30 127 14 127/37 (67) 100 09/21/19 01:00 114 14 143/40 (74) 100 09/21/19 01:00 143/39 09/21/19 00:30 115 14 143/40 (74) 100 09/21/19 00:00 15.0 100 09/21/19 00:00 114 14 106/40 (62) 100 09/21/19 00:00 Bi-pap 15.0 09/21/19 00:00 98.6 116 14 136/60 (85) 100 09/21/19 00:00 127/37 09/21/19 00:00 114 09/20/19 23:30 110 14 116/34 (61) 100 09/20/19 23:16 89 18 100 100 09/20/19 23:00 114 14 100/26 (50) 100 09/20/19 23:00 141/28 09/20/19 22:30 112 14 94/34 (54) 100 09/20/19 22:00 109 14 110/41 (64) 100 09/20/19 22:00 90/40 09/20/19 21:45 98 14 100/34 (56) 100 09/20/19 21:30 80 14 94/34 (54) 100 09/20/19 21:15 82 14 88/0 (29) 100 09/20/19 21:00 88/32 09/20/19 21:00 82 14 94/34 (54) 100 09/20/19 20:45 83 16 86/40 (55) 100 09/20/19 20:30 85 14 98/40 (59) 100 09/20/19 20:00 Bi-pap 15.0 09/20/19 20:00 15.0 100 09/20/19 20:00 98.6 82 18 96/40 (58) 100 09/20/19 20:00 86 09/20/19 19:45 95 14 94/34 (54) 100 09/20/19 19:30 90 16 90/40 (57) 100 09/20/19 19:21 86 15 100 100 09/20/19 19:15 90 14 86/34 (51) 100 09/20/19 19:00 97/33 09/20/19 19:00 86 16 94/34 (54) 100 09/20/19 18:09 15.0 100 09/20/19 18:00 90 14 94/34 (54) 100 09/20/19 18:00 106/56 09/20/19 17:00 102/52 09/20/19 17:00 87 18 90/42 (58) 100 09/20/19 16:21 98/33 09/20/19 16:00 98.6 93 18 97/43 (61) 100 09/20/19 16:00 15.0 100 09/20/19 16:00 97 09/20/19 16:00 Bi-pap 15.0 09/20/19 15:09 93 18 98/33 (54) 100 09/20/19 14:40 94 17 100 100 09/20/19 14:00 93 18 86/63 (71) 100 09/20/19 14:00 15.0 100 09/20/19 13:00 95 20 103/30 (54) 98 09/20/19 12:41 83/29 09/20/19 12:00 97.8 97 19 106/35 (58) 100 09/20/19 12:00 15.0 100 09/20/19 12:00 Bi-pap 15.0 09/20/19 12:00 97 09/20/19 11:51 108 20 96 Bi-Pap 100 09/20/19 11:49 108 20 96 100 09/20/19 11:16 83/29 09/20/19 11:00 15.0 100 09/20/19 11:00 96 26 86/30 (48) 98 09/20/19 10:30 102 18 82/46 (58) 100 09/20/19 10:15 99 18 71/47 (55) 100 09/20/19 10:00 102 18 92/47 (62) 100 09/20/19 09:45 97.0 100 18 83/37 (52) 100 09/20/19 09:30 97.0 100 18 85/43 (57) 100 09/20/19 08:19 97.0 100 18 86/37 (53) 100 09/20/19 08:18 100 20 09/20/19 08:15 97.0 100 18 89/40 (56) 100 09/20/19 08:10 97.0 100 18 99/34 (55) 100 09/20/19 08:00 Non-Rebreather 15.0 09/20/19 08:00 100 09/20/19 08:00 97.0 100 18 73/26 (42) 100 09/20/19 04:00 97.6 106 18 109/60 (76) 97 09/20/19 04:00 107 09/20/19 04:00 15.0 09/20/19 04:00 Non-Rebreather 15.0 09/20/19 00:00 96.3 102 18 104/58 (73) 99 09/20/19 00:00 104 09/20/19 00:00 15.0 09/20/19 00:00 Non-Rebreather 15.0 09/19/19 20:00 15.0 09/19/19 20:00 Non-Rebreather 15.0 09/19/19 20:00 98.1 130 20 109/49 (69) 98 09/19/19 20:00 102 09/19/19 19:51 97 Nasal Cannula 4.0 36 09/19/19 16:00 Nasal Cannula 15.0 09/19/19 16:00 98.2 96 21 110/52 (71) 100 09/19/19 16:00 15.0 09/19/19 16:00 107 Intake and Output 09/20/19 09/21/19 19:00 07:00 Intake Total 185.976 ml 827.535 ml Output Total 0 ml 26 ml Balance 185.976 ml 801.535 ml Intake Oral 0 ml 0 ml Free Water 50 ml IV Total 185.976 ml 777.535 ml Output Urine Total 0 ml 25 ml Stool Total 1 ml # Bowel Movements 1 Labs Test 09/19/19 06:10 09/19/19 16:28 09/20/19 08:13 09/20/19 09:45 White Blood Count 8.8 K/UL (4.8-10.8) 10.8 K/UL (4.8-10.8) Red Blood Count 3.41 M/UL (4.20-5.40) 3.29 M/UL (4.20-5.40) Hemoglobin 9.4 G/DL (12.0-16.0) 9.0 G/DL (12.0-16.0) Hematocrit 28.7 % (37.0-47.0) 27.6 % (37.0-47.0) Mean Corpuscular Volume 84 FL (80-99) 84 FL (80-99) Mean Corpuscular Hemoglobin 27.4 PG (27.0-31.0) 27.4 PG (27.0-31.0) Mean Corpuscular Hemoglobin Concent 32.5 G/DL (32.0-36.0) 32.6 G/DL (32.0-36.0) Red Cell Distribution Width 18.0 % (11.6-14.8) 18.4 % (11.6-14.8) Platelet Count 244 K/UL (150-450) 249 K/UL (150-450) Mean Platelet Volume 5.2 FL (6.5-10.1) 5.2 FL (6.5-10.1) Neutrophils (%) (Auto) 78.2 % (45.0-75.0) 80.3 % (45.0-75.0) Lymphocytes (%) (Auto) 14.5 % (20.0-45.0) 12.3 % (20.0-45.0) Monocytes (%) (Auto) 6.2 % (1.0-10.0) 5.2 % (1.0-10.0) Eosinophils (%) (Auto) 0.2 % (0.0-3.0) 0.0 % (0.0-3.0) Basophils (%) (Auto) 0.9 % (0.0-2.0) 2.1 % (0.0-2.0) D-Dimer 13.00 mg/L FEU (0.00-0.49) Sodium Level 145 MMOL/L (136-145) 141 MMOL/L (136-145) Potassium Level 3.9 MMOL/L (3.5-5.1) 4.7 MMOL/L (3.5-5.1) Chloride Level 111 MMOL/L (98-107) 107 MMOL/L (98-107) Carbon Dioxide Level 24 MMOL/L (21-32) 17 MMOL/L (21-32) Anion Gap 10 mmol/L (5-15) 17 mmol/L (5-15) Blood Urea Nitrogen 39 mg/dL (7-18) 51 mg/dL (7-18) Creatinine 1.1 MG/DL (0.55-1.30) 1.8 MG/DL (0.55-1.30) Estimat Glomerular Filtration Rate 48.7 mL/min (>60) 27.6 mL/min (>60) Glucose Level 178 MG/DL (74-106) 194 MG/DL (74-106) Uric Acid 6.2 MG/DL (2.6-7.2) Calcium Level 8.1 MG/DL (8.5-10.1) 8.1 MG/DL (8.5-10.1) Phosphorus Level 3.3 MG/DL (2.5-4.9) 4.9 MG/DL (2.5-4.9) Magnesium Level 2.5 MG/DL (1.8-2.4) 2.4 MG/DL (1.8-2.4) Total Bilirubin 0.8 MG/DL (0.2-1.0) 0.8 MG/DL (0.2-1.0) Aspartate Amino Transf (AST/SGOT) 77 U/L (15-37) 79 U/L (15-37) Alanine Aminotransferase (ALT/SGPT) 14 U/L (12-78) 13 U/L (12-78) Alkaline Phosphatase 253 U/L (46-116) 255 U/L (46-116) Lactate Dehydrogenase 668 U/L (81-234) Total Protein 5.8 G/DL (6.4-8.2) 5.9 G/DL (6.4-8.2) Albumin 1.5 G/DL (3.4-5.0) 1.6 G/DL (3.4-5.0) Globulin 4.3 g/dL 4.3 g/dL Albumin/Globulin Ratio 0.3 (1.0-2.7) 0.4 (1.0-2.7) Thyroid Stimulating Hormone (TSH) 0.370 uiU/mL (0.358-3.740) Vancomycin Level Trough 15.3 ug/mL (5.0-12.0) Arterial Blood pH 7.094 (7.350-7.450) Arterial Blood Partial Pressure CO2 64.5 mmHg (35.0-45.0) Arterial Blood Partial Pressure O2 138.7 mmHg (75.0-100.0) Arterial Blood HCO3 19.3 mmol/L (22.0-26.0) Arterial Blood Oxygen Saturation 98.1 % (95-100) Arterial Blood Base Excess -10.5 (-2-2) Ming Test Positive Test 09/20/19 20:02 09/21/19 03:45 09/21/19 07:56 Arterial Blood pH 7.172 (7.350-7.450) 7.256 (7.350-7.450) Arterial Blood Partial Pressure CO2 47.3 mmHg (35.0-45.0) 35.1 mmHg (35.0-45.0) Arterial Blood Partial Pressure O2 219.3 mmHg (75.0-100.0) 184.0 mmHg (75.0-100.0) Arterial Blood HCO3 16.9 mmol/L (22.0-26.0) 15.3 mmol/L (22.0-26.0) Arterial Blood Oxygen Saturation 99.4 % (95-100) 98.7 % (95-100) Arterial Blood Base Excess -11 (-2-2) -10.9 (-2-2) Ming Test Positive Positive White Blood Count 9.2 K/UL (4.8-10.8) Red Blood Count 3.01 M/UL (4.20-5.40) Hemoglobin 8.2 G/DL (12.0-16.0) Hematocrit 25.0 % (37.0-47.0) Mean Corpuscular Volume 83 FL (80-99) Mean Corpuscular Hemoglobin 27.4 PG (27.0-31.0) Mean Corpuscular Hemoglobin Concent 33.0 G/DL (32.0-36.0) Red Cell Distribution Width 17.7 % (11.6-14.8) Platelet Count 230 K/UL (150-450) Mean Platelet Volume 5.1 FL (6.5-10.1) Neutrophils (%) (Auto) 82.5 % (45.0-75.0) Lymphocytes (%) (Auto) 11.0 % (20.0-45.0) Monocytes (%) (Auto) 5.4 % (1.0-10.0) Eosinophils (%) (Auto) 0.1 % (0.0-3.0) Basophils (%) (Auto) 1.0 % (0.0-2.0) Sodium Level 140 MMOL/L (136-145) Potassium Level 4.0 MMOL/L (3.5-5.1) Chloride Level 106 MMOL/L (98-107) Carbon Dioxide Level 18 MMOL/L (21-32) Anion Gap 16 mmol/L (5-15) Blood Urea Nitrogen 55 mg/dL (7-18) Creatinine 2.3 MG/DL (0.55-1.30) Estimat Glomerular Filtration Rate 20.8 mL/min (>60) Glucose Level 219 MG/DL (74-106) Calcium Level 7.5 MG/DL (8.5-10.1) Phosphorus Level 4.6 MG/DL (2.5-4.9) Total Bilirubin 0.8 MG/DL (0.2-1.0) Aspartate Amino Transf (AST/SGOT) 74 U/L (15-37) Alanine Aminotransferase (ALT/SGPT) 14 U/L (12-78) Alkaline Phosphatase 236 U/L (46-116) Total Protein 5.7 G/DL (6.4-8.2) Albumin 1.9 G/DL (3.4-5.0) Globulin 3.8 g/dL Albumin/Globulin Ratio 0.5 (1.0-2.7) Height (Feet): 5 Height (Inches): 4.00 Weight (Pounds): 141 Objective Physical Exam: Vitals: reviewed General: NAD HEENT: nc, at Neck: supple Chest: clear breath sounds bilaterally,bipap++ Cardiovascular: RRR, no s3, s4 Abdomen: soft, nontender, nd Extremities: no cce, normal range of motion +arm swelling bilaterally, picc+ Neuro: alert and oriented Marito Reza MD Sep 21, 2019 12:49
--- NOTE | 2019-09-21 14:00 | NUR ---
NURSE NOTES: Patient turned and repositioned. VSS. Patient is drowsy but mentation waxes and wanes. Will continue to monitor.
--- NOTE | 2019-09-21 16:00 | NUR ---
NURSE NOTES: Patient noted with black, soft stool. Partial bath and beatrice-care given. Skin remains intact but moisture barrier paste applied since patient is incontinent and is high risk for skin breakdown. Will continue to monitor.
--- NOTE | 2019-09-21 16:37 | NUR ---
CASE MANAGEMENT: REVIEW SI: ANEMIA . PNA . RESP FAILURE . BREAST CA w/ BONE METASTASIS T 97.9 HR 91 RR 18 BP 86/45 SAT 100% BIPAP FIO2 60 H/H 8.2/25.0 BUN 55 CR 2.3 IS: NS IVF @ 50ML/HR DOPAMINE IV Q24HR VENOFER IV QHS PROTONIX IV Q12HR VANCOMYCIN IV Q24HR ZOSYN IV Q8HR ICU STATUS DCP: PATIENT IS FROM [facility]
[2019-09-21] MEDS: DOPamine 400mg/250ml 250 ML IV SCH (17:06)
[2019-09-21] MEDS: Vancomycin 1 GM in D5W 275 ML IVPB SCH (17:06)
--- NOTE | 2019-09-21 17:45 | NUR ---
NURSE NOTES: Dr. Gutiérrez at bedside, made aware of patient still having melena. Hgb above 8.0 but downtrending. No new orders received. Will continue to monitor.
--- NOTE | 2019-09-21 19:04 | NUR ---
HAND-OFF: Report given to Austin Hamilton RN.
--- NOTE | 2019-09-21 20:00 | NUR ---
NURSE NOTES: received pt from rosibel arreaga pt obtunded moving upper extremities nonverbal on b-pap o2 sat 100% on dopaat 2mcg /kg/min reposition suction urinary output poor md aware
--- NOTE | 2019-09-21 20:07 | General Progress Note ---
Assessment/Plan Assessment/Plan: Assessment - Anemia, dark stools - Negative recent EGD/Colon at [facility] - Metastatic BRCA - Hypotension - Respiratory failure - Poor prognosis Recommendations - not a good candidate for capsule endoscopy at this time - daily CBC - transfuse PRN - supportive care - BIPAP - IV IRON - IV PPI - carafate - laxative Subjective Allergies: Coded Allergies: No Known Allergies (Unverified , 09/15/19) Subjective Above noted d/w RN dark stools on BIPAP minimally responsive Recent EGD/Colon at [facility] Minor findings: Gastritis, two small gastric nodules, mild diverticulosis, hemorrhoids no clear source of GI bleed identified ---> capsule endoscopy recommended as next step Objective Last 24 Hour Vital Signs Date Time Temp Pulse Resp B/P (MAP) Pulse Ox O2 Delivery O2 Flow Rate FiO2 09/21/19 19:00 75 16 137/41 (73) 99 09/21/19 19:00 137/41 09/21/19 18:30 79 17 135/43 (73) 100 09/21/19 18:00 127/41 09/21/19 18:00 78 17 127/41 (69) 100 09/21/19 17:30 79 19 121/40 (67) 100 09/21/19 17:15 80 20 130/41 (70) 100 09/21/19 17:06 130/42 09/21/19 17:00 80 20 130/43 (72) 100 09/21/19 17:00 130/43 09/21/19 16:45 83 19 132/39 (70) 100 09/21/19 16:30 92 21 135/37 (69) 100 09/21/19 16:30 135/37 09/21/19 16:00 60 09/21/19 16:00 97.9 09/21/19 16:00 Bi-pap 09/21/19 16:00 94 19 154/49 (84) 100 09/21/19 16:00 154/49 09/21/19 16:00 89 09/21/19 15:30 76 21 98/34 (55) 100 09/21/19 15:14 77 21 100 60 09/21/19 15:00 154/49 09/21/19 15:00 94 19 154/49 (84) 100 09/21/19 14:30 92 18 149/44 (79) 100 09/21/19 14:00 142/48 09/21/19 14:00 91 19 142/48 (79) 99 09/21/19 13:30 91 19 144/38 (73) 99 09/21/19 13:00 91 18 146/41 (76) 99 09/21/19 13:00 146/41 09/21/19 12:30 92 18 139/44 (75) 99 09/21/19 12:00 Bi-pap 09/21/19 12:00 97.9 09/21/19 12:00 93 09/21/19 12:00 146/50 09/21/19 12:00 91 18 146/50 (82) 100 09/21/19 12:00 60 09/21/19 11:30 92 17 148/43 (78) 100 09/21/19 11:28 89 16 100 60 09/21/19 11:15 92 16 150/59 (89) 100 09/21/19 11:00 156/47 09/21/19 11:00 92 16 156/47 (83) 100 09/21/19 10:45 93 17 156/46 (82) 100 09/21/19 10:30 92 17 144/38 (73) 100 09/21/19 10:15 95/35 09/21/19 10:15 83 16 95/35 (55) 100 09/21/19 10:00 75 16 86/45 (59) 100 09/21/19 10:00 76 16 96/45 (62) 100 09/21/19 10:00 86/45 09/21/19 09:45 84 16 97/34 (55) 100 09/21/19 09:30 76 17 99/36 (57) 100 09/21/19 09:15 99/36 09/21/19 09:15 84 16 99/36 (57) 100 09/21/19 09:00 99/36 09/21/19 09:00 84 16 118/38 (64) 100 09/21/19 08:30 88 16 99/36 (57) 100 09/21/19 08:00 Bi-pap 09/21/19 08:00 87 17 118/38 (64) 100 09/21/19 08:00 72 09/21/19 08:00 100 09/21/19 08:00 118/38 09/21/19 08:00 98.8 09/21/19 07:30 86 17 111/43 (65) 100 09/21/19 07:24 89 16 100 80 09/21/19 07:00 87 16 115/40 (65) 100 09/21/19 07:00 115/40 09/21/19 06:00 90 16 110/45 (66) 100 09/21/19 06:00 117/41 09/21/19 05:30 87 16 117/41 (66) 100 09/21/19 05:00 106/39 09/21/19 05:00 118 14 127/37 (67) 100 09/21/19 04:30 125 14 125/37 (66) 100 09/21/19 04:00 15.0 100 09/21/19 04:00 112 09/21/19 04:00 104/39 09/21/19 04:00 98.8 116 14 122/47 (72) 100 09/21/19 04:00 Bi-pap 15.0 09/21/19 03:30 120 14 116/40 (65) 100 09/21/19 03:00 116 14 127/37 (67) 100 09/21/19 03:00 123/41 09/21/19 02:50 91 20 100 80 09/21/19 02:30 120 14 122/40 (67) 100 09/21/19 02:00 110 14 130/45 (73) 100 09/21/19 02:00 116/36 09/21/19 01:30 127 14 127/37 (67) 100 09/21/19 01:00 114 14 143/40 (74) 100 09/21/19 01:00 143/39 09/21/19 00:30 115 14 143/40 (74) 100 09/21/19 00:00 15.0 100 09/21/19 00:00 114 14 106/40 (62) 100 09/21/19 00:00 Bi-pap 15.0 09/21/19 00:00 98.6 116 14 136/60 (85) 100 09/21/19 00:00 127/37 09/21/19 00:00 114 09/20/19 23:30 110 14 116/34 (61) 100 09/20/19 23:16 89 18 100 100 09/20/19 23:00 114 14 100/26 (50) 100 09/20/19 23:00 141/28 09/20/19 22:30 112 14 94/34 (54) 100 09/20/19 22:00 109 14 110/41 (64) 100 09/20/19 22:00 90/40 09/20/19 21:45 98 14 100/34 (56) 100 09/20/19 21:30 80 14 94/34 (54) 100 09/20/19 21:15 82 14 88/0 (29) 100 09/20/19 21:00 88/32 09/20/19 21:00 82 14 94/34 (54) 100 09/20/19 20:45 83 16 86/40 (55) 100 09/20/19 20:30 85 14 98/40 (59) 100 09/20/19 20:00 Bi-pap 15.0 09/20/19 20:00 15.0 100 09/20/19 20:00 98.6 82 18 96/40 (58) 100 09/20/19 20:00 86 Intake and Output 09/20/19 09/21/19 19:00 07:00 Intake Total 185.976 ml 912.129 ml Output Total 0 ml 26 ml Balance 185.976 ml 886.129 ml Intake Oral 0 ml 0 ml Free Water 50 ml IV Total 185.976 ml 862.129 ml Output Urine Total 0 ml 25 ml Stool Total 1 ml # Bowel Movements 1 Laboratory Tests 09/20/19 20:02: Arterial Blood pH 7.172*L, Arterial Blood Partial Pressure CO2 47.3H, Arterial Blood Partial Pressure O2 219.3H, Arterial Blood HCO3 16.9*L, Arterial Blood Oxygen Saturation 99.4, Arterial Blood Base Excess -11*L, Ming Test Positive 09/21/19 03:45: White Blood Count 9.2, Red Blood Count 3.01L, Hemoglobin 8.2L, Hematocrit 25.0L , Mean Corpuscular Volume 83, Mean Corpuscular Hemoglobin 27.4, Mean Corpuscular Hemoglobin Concent 33.0, Red Cell Distribution Width 17.7H, Platelet Count 230, Mean Platelet Volume 5.1L, Neutrophils (%) (Auto) 82.5H, Lymphocytes (%) (Auto) 11.0L, Monocytes (%) (Auto) 5.4, Eosinophils (%) (Auto) 0.1, Basophils (%) (Auto) 1.0, Sodium Level 140, Potassium Level 4.0, Chloride Level 106, Carbon Dioxide Level 18L, Anion Gap 16H, Blood Urea Nitrogen 55H, Creatinine 2.3H, Estimat Glomerular Filtration Rate 20.8, Glucose Level 219H, Calcium Level 7.5L, Phosphorus Level 4.6, Total Bilirubin 0.8, Aspartate Amino Transf (AST/SGOT) 74H, Alanine Aminotransferase (ALT/SGPT) 14, Alkaline Phosphatase 236H, Total Protein 5.7L, Albumin 1.9L, Globulin 3.8, Albumin/ Globulin Ratio 0.5L 09/21/19 07:56: Arterial Blood pH 7.256L, Arterial Blood Partial Pressure CO2 35.1, Arterial Blood Partial Pressure O2 184.0H, Arterial Blood HCO3 15.3*L, Arterial Blood Oxygen Saturation 98.7, Arterial Blood Base Excess -10.9*L, Ming Test Positive Height (Feet): 5 Height (Inches): 4.00 Weight (Pounds): 141 Objective Elderly woman (+) BIPAP mask minimally responsive supple Coarse BS RR abd soft ND NT no edema Pati Gutiérrez MD Sep 21, 2019 20:07
[2019-09-21] MEDS: Dyna-Hex 2% Top Sol 2oz TOPIC SCH (20:59)
[2019-09-21] MEDS ORDERED: Sennosides 8.6mg tab GT SCH (21:00)
--- NOTE | 2019-09-21 22:00 | NUR ---
NURSE NOTES: dopa drip < 1mcg/kg/min with 137/57
[2019-09-21] MEDS: Iron Sucrose 100 MG in NS 55 ML IV SCH (22:05)
[2019-09-22] VITALS (35 sets, daily range): BP systolic 89–145; BP diastolic 14–51
--- NOTE | 2019-09-22 | NUR ---
NURSE NOTES: reposition and suction condition unchange
--- NOTE | 2019-09-22 | NUR ---
NURSE NOTES: reposition and suction
--- NOTE | 2019-09-22 04:00 | NUR ---
NURSE NOTES: complete bed bath oral care and back care done
[2019-09-22 05:12] LABS: HEMATOCRIT 22.9 % (37.0-47.0); HEMOGLOBIN 7.7 G/DL (12.0-16.0); MEAN CORPUSCULAR VOLUME 82 FL (80-99); PLATELET COUNT 201 K/UL (150-450); RED CELL DISTRIBUTION WIDTH 18.2 % (11.6-14.8); WHITE BLOOD COUNT 7.2 K/UL (4.8-10.8)
[2019-09-22 05:45] LABS: ALANINE AMINOTRANSFERASE 11 U/L (12-78); ALBUMIN 1.5 G/DL (3.4-5.0); ALBUMIN/GLOBULIN RATIO 0.4 (1.0-2.7); ALKALINE PHOSPHATASE 219 U/L (46-116); ANION GAP 15 mmol/L (5-15); ASPARTATE AMINO TRANSFERASE 52 U/L (15-37); BILIRUBIN,TOTAL 0.9 MG/DL (0.2-1.0); BLOOD UREA NITROGEN 64 mg/dL (7-18); CALCIUM 7.5 MG/DL (8.5-10.1); CARBON DIOXIDE 18 MMOL/L (21-32); CHLORIDE 104 MMOL/L (98-107); CREATININE 2.8 MG/DL (0.55-1.30); GAMMA GLUTAMYL TRANSPEPTIDASE 106 U/L (5-85); LACTATE DEHYDROGENASE 465 U/L (81-234); PHOSPHORUS 4.1 MG/DL (2.5-4.9); POTASSIUM 3.8 MMOL/L (3.5-5.1); SODIUM 137 MMOL/L (136-145)
[2019-09-22 05:53] LABS: INR 1.1 (0.9-1.1)
[2019-09-22] MEDS: NovoLOG Insulin Flexpen SUBQ SCH ×3 (06:22→16:51)
[2019-09-22] MEDS ORDERED: sitaGLIPtin 50mg tab GT SCH (06:30)
[2019-09-22] MEDS ORDERED: sitaGLIPtin 25mg tab GT SCH (06:30)
--- NOTE | 2019-09-22 07:26 | NUR ---
HAND-OFF: Report given to kuldip roque using sbar.
--- NOTE | 2019-09-22 07:27 | NUR ---
NURSE NOTES: Report received from COLLIN Swain. Pt is sleeping in bed. Pt responds to pain and slightly opens eyes to pain. Non-verbal. Unable to follow commands. 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 On Bi-pap 15/5 60%, O2 sat 100%. RR 20's. Right NGT in place and kept NPO. Left breast lump hard to touch. Right hand dark blue and swollen. Left arm and hand swollen. JONNY PICC line patent and asymptomatic. IV to right hand G22 patent and asymptomatic. Pt is on Dopamine at 2 mcg/kg/min and 1/2NS at 50cc/hr. Continued SZ precaution. Bed in lowest position. Side rails up x3. Will resume plan of care.
[2019-09-22] MEDS: Doxycycline Monohydrate 100mg GT SCH (08:38)
[2019-09-22] MEDS: Midodrine 10mg tab GT SCH ×3 (08:38→17:04)
[2019-09-22] MEDS: Pantoprazole Inj IVP SCH (08:39)
[2019-09-22] MEDS: Sucralfate 1gm tab GT SCH ×3 (08:39→17:04)
[2019-09-22] MEDS: Gabapentin 300 MG/6 ML Soln GT SCH (08:48)
[2019-09-22] MEDS: DOPamine 400mg/250ml 250 ML IV SCH (09:00)
--- NOTE | 2019-09-22 10:21 | NUR ---
NURSE NOTES: Dr Gutiérrez here to see the patient. Updated him with pt's current condition including low Hgb 7.7 and tarry BM from last night. No new orders. Will continue to monitor.
--- NOTE | 2019-09-22 10:28 | General Progress Note ---
Assessment/Plan Assessment/Plan: Assessment - Anemia, dark stools - Negative recent EGD/Colon at [facility] - Metastatic BRCA - Hypotension - Respiratory failure, on bipap - holding TF due to significant resp risk - not candidate for endoscopy due to resp risk - Poor prognosis Recommendations - not a good candidate for endoscopy or capsule endoscopy at this time - daily CBC - transfuse PRN - supportive care - BIPAP - IV IRON - IV PPI - carafate - laxative - level of care discussion Subjective Allergies: Coded Allergies: No Known Allergies (Unverified , 09/15/19) Subjective Above noted d/w RN dark stools on BIPAP minimally responsive Objective Last 24 Hour Vital Signs Date Time Temp Pulse Resp B/P (MAP) Pulse Ox O2 Delivery O2 Flow Rate FiO2 09/22/19 10:00 149/46 09/22/19 09:30 83 22 129/42 (71) 99 09/22/19 09:00 83 21 128/47 (74) 100 09/22/19 09:00 128/47 09/22/19 09:00 129/42 09/22/19 08:30 83 20 135/45 (75) 100 09/22/19 08:00 137/46 09/22/19 08:00 60 09/22/19 08:00 99.2 82 20 137/46 (76) 100 09/22/19 08:00 Bi-pap 09/22/19 07:20 83 18 100 50 09/22/19 07:00 82 20 137/46 (76) 100 09/22/19 07:00 128/42 09/22/19 06:30 82 20 126/36 (66) 100 09/22/19 06:00 80 16 119/45 (69) 100 09/22/19 06:00 119/38 09/22/19 05:30 84 19 119/39 (65) 100 09/22/19 05:00 82 17 120/36 (64) 100 09/22/19 05:00 119/39 09/22/19 04:30 80 18 119/43 (68) 100 09/22/19 04:00 Bi-pap 09/22/19 04:00 60 09/22/19 04:00 98.6 62 17 126/36 (66) 100 09/22/19 04:00 121/39 09/22/19 04:00 71 09/22/19 03:30 69 16 119/40 (66) 100 09/22/19 03:28 68 18 100 50 09/22/19 03:00 82 17 108/43 (64) 100 09/22/19 03:00 86/42 09/22/19 02:30 70 17 113/39 (63) 100 09/22/19 02:00 82 17 126/36 (66) 100 09/22/19 02:00 116/38 09/22/19 01:30 86 17 116/36 (62) 100 09/22/19 01:00 109/42 09/22/19 01:00 75 17 110/40 (63) 100 09/22/19 00:30 80 17 126/36 (66) 100 09/22/19 00:00 99.0 70 16 127/40 (69) 100 09/22/19 00:00 125/40 09/22/19 00:00 69 09/22/19 00:00 Bi-pap 09/22/19 00:00 60 09/21/19 23:30 75 16 147/41 (76) 99 09/21/19 23:25 73 17 97 60 09/21/19 23:00 147/74 09/21/19 23:00 75 18 141/52 (81) 99 09/21/19 22:30 80 19 140/41 (74) 99 09/21/19 22:00 75 18 136/44 (74) 99 09/21/19 22:00 136/44 09/21/19 21:30 79 16 139/44 (75) 99 09/21/19 21:00 137/43 09/21/19 21:00 75 18 136/44 (74) 99 09/21/19 20:30 78 18 146/46 (79) 99 09/21/19 20:00 60 09/21/19 20:00 77 09/21/19 20:00 137/43 09/21/19 20:00 99.0 75 16 137/43 (74) 99 09/21/19 20:00 Bi-pap 09/21/19 19:59 74 17 97 60 09/21/19 19:30 76 16 133/37 (69) 99 09/21/19 19:00 75 16 137/41 (73) 99 09/21/19 19:00 137/41 09/21/19 18:30 79 17 135/43 (73) 100 20 18:00 127/41 20 18:00 78 17 127/41 (69) 100 09/21/19 17:30 79 19 121/40 (67) 100 09/21/19 17:15 80 20 130/41 (70) 100 09/21/19 17:06 130/42 09/21/19 17:00 80 20 130/43 (72) 100 09/21/19 17:00 130/43 09/21/19 16:45 83 19 132/39 (70) 100 09/21/19 16:30 92 21 135/37 (69) 100 09/21/19 16:30 135/37 09/21/19 16:00 60 09/21/19 16:00 97.9 09/21/19 16:00 Bi-pap 09/21/19 16:00 94 19 154/49 (84) 100 09/21/19 16:00 154/49 09/21/19 16:00 89 09/21/19 15:30 76 21 98/34 (55) 100 09/21/19 15:14 77 21 100 60 09/21/19 15:00 154/49 09/21/19 15:00 94 19 154/49 (84) 100 09/21/19 14:30 92 18 149/44 (79) 100 09/21/19 14:00 142/48 09/21/19 14:00 91 19 142/48 (79) 99 09/21/19 13:30 91 19 144/38 (73) 99 09/21/19 13:00 91 18 146/41 (76) 99 09/21/19 13:00 146/41 09/21/19 12:30 92 18 139/44 (75) 99 09/21/19 12:00 Bi-pap 09/21/19 12:00 97.9 09/21/19 12:00 93 09/21/19 12:00 146/50 09/21/19 12:00 91 18 146/50 (82) 100 09/21/19 12:00 60 09/21/19 11:30 92 17 148/43 (78) 100 09/21/19 11:28 89 16 100 60 09/21/19 11:15 92 16 150/59 (89) 100 09/21/19 11:00 156/47 09/21/19 11:00 92 16 156/47 (83) 100 09/21/19 10:45 93 17 156/46 (82) 100 09/21/19 10:30 92 17 144/38 (73) 100 Intake and Output 09/21/19 09/22/19 19:00 07:00 Intake Total 1400.7586 ml 533.063 ml Output Total 20 ml 40 ml Balance 1380.7586 ml 493.063 ml Intake Oral 0 ml 0 ml IV Total 1120.7586 ml 533.063 ml Other 280 ml Output Urine Total 20 ml 40 ml # Bowel Movements 2 3 Laboratory Tests 09/22/19 04:05: White Blood Count 7.2, Red Blood Count 2.80L, Hemoglobin 7.7L, Hematocrit 22.9L , Mean Corpuscular Volume 82, Mean Corpuscular Hemoglobin 27.6, Mean Corpuscular Hemoglobin Concent 33.8, Red Cell Distribution Width 18.2H, Platelet Count 201, Mean Platelet Volume 4.4L, Neutrophils (%) (Auto) , Lymphocytes (%) (Auto) , Monocytes (%) (Auto) , Eosinophils (%) (Auto) , Basophils (%) (Auto) , Prothrombin Time 12.5H, Prothromb Time International Ratio 1.1, Activated Partial Thromboplast Time 33, D-Dimer 9.31H, Sodium Level 137, Potassium Level 3.8, Chloride Level 104, Carbon Dioxide Level 18L, Anion Gap 15, Blood Urea Nitrogen 64H, Creatinine 2.8H, Estimat Glomerular Filtration Rate 16.5, Glucose Level 192H, Uric Acid 9.2H, Calcium Level 7.5L, Phosphorus Level 4.1, Magnesium Level 2.4, Total Bilirubin 0.9, Gamma Glutamyl Transpeptidase 106H, Aspartate Amino Transf (AST/SGOT) 52H, Alanine Aminotransferase (ALT/SGPT) 11L, Alkaline Phosphatase 219H, Lactate Dehydrogenase 465H, Troponin I 0.118H, C-Reactive Protein, Quantitative 14.6H, Pro-B-Type Natriuretic Peptide > 80754T, Total Protein 5.0L, Albumin 1.5L, Globulin 3.5, Albumin/Globulin Ratio 0.4L Height (Feet): 5 Height (Inches): 4.00 Weight (Pounds): 141 Objective Elderly woman (+) BIPAP mask (+) NGT Pati Gutiérrez MD Sep 22, 2019 10:28
--- NOTE | 2019-09-22 10:57 | NUR ---
CASE MANAGEMENT: REVIEW SI: ANEMIA . PNA . RESP FAILURE . BREAST CA w/ BONE METASTASIS T 99.2 HR 82 RR 20 BP 86/42 SAT 96% BIPAP FIO2 60 H/H 7.7/22.9 BUN 64 CR 2.8 TROP I 0.118 IS: NS IVF @ 50ML/HR DOPAMINE IV Q24HR ZOSYN IV Q8HR VANCOMYCIN IV Q24HR VENOFER IV QHS PROTONIX IV Q12HR DOXYCYCLINE GT Q12HR TRANSFUSE PRBC ICU STATUS DCP: PATIENT IS FROM [facility]
--- NOTE | 2019-09-22 11:09 | NUR ---
*-* INSURANCE *-* UPDATED CLINICALS AND REVIEWS HAVE BEEN FAXED TO: [facility] [phone] FAX [phone] Work
--- NOTE | 2019-09-22 11:17 | NUR ---
NURSE NOTES: Notified Dr Mckee regarding ABG result. No new orders.
--- NOTE | 2019-09-22 11:36 | Nephrology Progress Note ---
Assessment/Plan Problem List: (1) DAVID (acute kidney injury) Assessment: Partly GI bleed (2) Hypernatremia Assessment: Partly dehydration (3) Anemia (4) GI bleed Assessment: Due to GI bleed (5) Metastatic cancer Assessment: Breast with bone metastasis (6) Suspected 2019 novel coronavirus infection (7) Hypoalbuminemia (8) DMII (diabetes mellitus, type 2) Assessment This patient is 74-year-old female who presents with fever and is a [place] residence in which there is a high risk of COVID-19 Renal failure, most likely prerenal azotemia secondary to GI bleed, Hypernatremia most likely secondary to dehydration Severe anemia most likely due to GI bleed, patient has history of bleeding polyp in her duodenum. Metastatic breast cancer. Pathological fracture of the humerus had to undergo ORIF History of hypertension History of diabetes mellitus History of seizures Possible UTI Severe hypoalbuminemia Plan September 21: Patient on BiPAP. Clinical status deteriorated. Serum creatinine rising. Urine output is low. Will check the vancomycin level. Patient remains full code. May lead towards dialysis treatment unless the status is changed. Will talk to PMD and consultants. Hemoglobin lower. Will consider 1 unit of transfusion. ABG indicative of a metabolic acidosis. September 20: Patient now in ICU. On BiPAP. Lethargic. Renal failure worsening. Patient remains full code. On dopamine. Discussed with RN. Will continue to monitor renal parameters and urine output. Further worsening of renal parameters may require hemodialysis treatment. Will discuss with consultants. September 19: Patient oliguric. Patient lethargic. Today's labs is pending. Blood pressure is low. Will give IV boluses. Midodrine. Patient remains full code. Overall prognosis is poor. Previously: P.o. intake poor Today's blood results reviewed. BUN and creatinine improved Meanwhile: Kellogg catheter Slow hydration with one half normal saline 50 cc an hour Monitor renal parameters, hemoglobin, urine output Keep the blood pressure and blood sugar in check Per orders Chest x-ray: Left-sided pleural effusion left greater than right interstitial and airspace infiltrates versus edema Subjective ROS Limited/Unobtainable: Yes Objective Objective Last 24 Hour Vital Signs Date Time Temp Pulse Resp B/P (MAP) Pulse Ox O2 Delivery O2 Flow Rate FiO2 09/22/19 11:00 83 22 145/47 (79) 100 09/22/19 11:00 149/47 09/22/19 10:30 83 21 143/49 (80) 96 09/22/19 10:00 149/46 09/22/19 10:00 83 22 129/44 (72) 97 09/22/19 09:30 83 22 129/42 (71) 99 09/22/19 09:00 83 21 128/47 (74) 100 09/22/19 09:00 128/47 09/22/19 09:00 129/42 09/22/19 08:30 83 20 135/45 (75) 100 09/22/19 08:00 137/46 09/22/19 08:00 60 09/22/19 08:00 99.2 82 20 137/46 (76) 100 09/22/19 08:00 Bi-pap 09/22/19 07:52 82 09/22/19 07:20 83 18 100 50 09/22/19 07:00 82 20 137/46 (76) 100 09/22/19 07:00 128/42 09/22/19 06:30 82 20 126/36 (66) 100 09/22/19 06:00 80 16 119/45 (69) 100 09/22/19 06:00 119/38 09/22/19 05:30 84 19 119/39 (65) 100 09/22/19 05:00 82 17 120/36 (64) 100 09/22/19 05:00 119/39 09/22/19 04:30 80 18 119/43 (68) 100 09/22/19 04:00 Bi-pap 09/22/19 04:00 60 09/22/19 04:00 98.6 62 17 126/36 (66) 100 09/22/19 04:00 121/39 09/22/19 04:00 71 09/22/19 03:30 69 16 119/40 (66) 100 09/22/19 03:28 68 18 100 50 09/22/19 03:00 82 17 108/43 (64) 100 09/22/19 03:00 86/42 09/22/19 02:30 70 17 113/39 (63) 100 09/22/19 02:00 82 17 126/36 (66) 100 09/22/19 02:00 116/38 09/22/19 01:30 86 17 116/36 (62) 100 09/22/19 01:00 109/42 09/22/19 01:00 75 17 110/40 (63) 100 09/22/19 00:30 80 17 126/36 (66) 100 09/22/19 00:00 99.0 70 16 127/40 (69) 100 09/22/19 00:00 125/40 09/22/19 00:00 69 09/22/19 00:00 Bi-pap 09/22/19 00:00 60 09/21/19 23:30 75 16 147/41 (76) 99 09/21/19 23:25 73 17 97 60 09/21/19 23:00 147/74 09/21/19 23:00 75 18 141/52 (81) 99 09/21/19 22:30 80 19 140/41 (74) 99 09/21/19 22:00 75 18 136/44 (74) 99 09/21/19 22:00 136/44 09/21/19 21:30 79 16 139/44 (75) 99 09/21/19 21:00 137/43 09/21/19 21:00 75 18 136/44 (74) 99 09/21/19 20:30 78 18 146/46 (79) 99 09/21/19 20:00 60 09/21/19 20:00 77 09/21/19 20:00 137/43 09/21/19 20:00 99.0 75 16 137/43 (74) 99 09/21/19 20:00 Bi-pap 09/21/19 19:59 74 17 97 60 09/21/19 19:30 76 16 133/37 (69) 99 09/21/19 19:00 75 16 137/41 (73) 99 09/21/19 19:00 137/41 09/21/19 18:30 79 17 135/43 (73) 100 09/21/19 18:00 127/41 09/21/19 18:00 78 17 127/41 (69) 100 09/21/19 17:30 79 19 121/40 (67) 100 09/21/19 17:15 80 20 130/41 (70) 100 09/21/19 17:06 130/42 09/21/19 17:00 80 20 130/43 (72) 100 09/21/19 17:00 130/43 09/21/19 16:45 83 19 132/39 (70) 100 09/21/19 16:30 92 21 135/37 (69) 100 09/21/19 16:30 135/37 09/21/19 16:00 60 09/21/19 16:00 97.9 09/21/19 16:00 Bi-pap 09/21/19 16:00 94 19 154/49 (84) 100 09/21/19 16:00 154/49 09/21/19 16:00 89 09/21/19 15:30 76 21 98/34 (55) 100 09/21/19 15:14 77 21 100 60 09/21/19 15:00 154/49 09/21/19 15:00 94 19 154/49 (84) 100 09/21/19 14:30 92 18 149/44 (79) 100 09/21/19 14:00 142/48 09/21/19 14:00 91 19 142/48 (79) 99 09/21/19 13:30 91 19 144/38 (73) 99 09/21/19 13:00 91 18 146/41 (76) 99 09/21/19 13:00 146/41 09/21/19 12:30 92 18 139/44 (75) 99 09/21/19 12:00 Bi-pap 09/21/19 12:00 97.9 09/21/19 12:00 93 09/21/19 12:00 146/50 09/21/19 12:00 91 18 146/50 (82) 100 09/21/19 12:00 60 Intake and Output 09/21/19 09/22/19 19:00 07:00 Intake Total 1400.7586 ml 533.063 ml Output Total 20 ml 40 ml Balance 1380.7586 ml 493.063 ml Intake Oral 0 ml 0 ml IV Total 1120.7586 ml 533.063 ml Other 280 ml Output Urine Total 20 ml 40 ml # Bowel Movements 2 3 Laboratory Tests 09/22/19 04:05: White Blood Count 7.2, Red Blood Count 2.80L, Hemoglobin 7.7L, Hematocrit 22.9L , Mean Corpuscular Volume 82, Mean Corpuscular Hemoglobin 27.6, Mean Corpuscular Hemoglobin Concent 33.8, Red Cell Distribution Width 18.2H, Platelet Count 201, Mean Platelet Volume 4.4L, Neutrophils (%) (Auto) , Lymphocytes (%) (Auto) , Monocytes (%) (Auto) , Eosinophils (%) (Auto) , Basophils (%) (Auto) , Prothrombin Time 12.5H, Prothromb Time International Ratio 1.1, Activated Partial Thromboplast Time 33, D-Dimer 9.31H, Sodium Level 137, Potassium Level 3.8, Chloride Level 104, Carbon Dioxide Level 18L, Anion Gap 15, Blood Urea Nitrogen 64H, Creatinine 2.8H, Estimat Glomerular Filtration Rate 16.5, Glucose Level 192H, Uric Acid 9.2H, Calcium Level 7.5L, Phosphorus Level 4.1, Magnesium Level 2.4, Total Bilirubin 0.9, Gamma Glutamyl Transpeptidase 106H, Aspartate Amino Transf (AST/SGOT) 52H, Alanine Aminotransferase (ALT/SGPT) 11L, Alkaline Phosphatase 219H, Lactate Dehydrogenase 465H, Troponin I 0.118H, C-Reactive Protein, Quantitative 14.6H, Pro-B-Type Natriuretic Peptide > 24785Z, Total Protein 5.0L, Albumin 1.5L, Globulin 3.5, Albumin/Globulin Ratio 0.4L 09/22/19 10:47: Arterial Blood pH 7.246*L, Arterial Blood Partial Pressure CO2 40.2, Arterial Blood Partial Pressure O2 87.5, Arterial Blood HCO3 17.1*L, Arterial Blood Oxygen Saturation 95.2, Arterial Blood Base Excess -9.5*L, Ming Test Positive Height (Feet): 5 Height (Inches): 4.00 Weight (Pounds): 141 General Appearance: mild distress Cardiovascular: tachycardia Respiratory/Chest: decreased breath sounds Abdomen: distended Iggy Basilio MD Sep 22, 2019 11:36
--- NOTE | 2019-09-22 11:40 | Pulmonology Progress Note ---
Subjective ROS Limited/Unobtainable: Yes Interval Events: On BiPAP in ICU Constitutional: Reports: other - + bipap ; Denies: fever HEENT: Repors: no symptoms Respiratory: Reports: no symptoms Cardiovascular: Reports: no symptoms Gastrointestinal/Abdominal: Denies: nausea, vomiting, diarrhea Psychiatric: Reports: other - NA Skin: Denies: rash Musculoskeletal: Denies: pain Allergies: Coded Allergies: No Known Allergies (Unverified , 09/15/19) Objective Last 24 Hour Vital Signs Date Time Temp Pulse Resp B/P (MAP) Pulse Ox O2 Delivery O2 Flow Rate FiO2 09/22/19 11:00 83 22 145/47 (79) 100 09/22/19 11:00 149/47 09/22/19 10:30 83 21 143/49 (80) 96 09/22/19 10:00 149/46 09/22/19 10:00 83 22 129/44 (72) 97 09/22/19 09:30 83 22 129/42 (71) 99 09/22/19 09:00 83 21 128/47 (74) 100 09/22/19 09:00 128/47 09/22/19 09:00 129/42 09/22/19 08:30 83 20 135/45 (75) 100 09/22/19 08:00 137/46 09/22/19 08:00 60 09/22/19 08:00 99.2 82 20 137/46 (76) 100 09/22/19 08:00 Bi-pap 09/22/19 07:52 82 09/22/19 07:20 83 18 100 50 09/22/19 07:00 82 20 137/46 (76) 100 09/22/19 07:00 128/42 09/22/19 06:30 82 20 126/36 (66) 100 09/22/19 06:00 80 16 119/45 (69) 100 09/22/19 06:00 119/38 09/22/19 05:30 84 19 119/39 (65) 100 09/22/19 05:00 82 17 120/36 (64) 100 09/22/19 05:00 119/39 09/22/19 04:30 80 18 119/43 (68) 100 09/22/19 04:00 Bi-pap 09/22/19 04:00 60 09/22/19 04:00 98.6 62 17 126/36 (66) 100 09/22/19 04:00 121/39 09/22/19 04:00 71 09/22/19 03:30 69 16 119/40 (66) 100 09/22/19 03:28 68 18 100 50 09/22/19 03:00 82 17 108/43 (64) 100 09/22/19 03:00 86/42 09/22/19 02:30 70 17 113/39 (63) 100 09/22/19 02:00 82 17 126/36 (66) 100 09/22/19 02:00 116/38 09/22/19 01:30 86 17 116/36 (62) 100 09/22/19 01:00 109/42 09/22/19 01:00 75 17 110/40 (63) 100 09/22/19 00:30 80 17 126/36 (66) 100 09/22/19 00:00 99.0 70 16 127/40 (69) 100 09/22/19 00:00 125/40 09/22/19 00:00 69 09/22/19 00:00 Bi-pap 09/22/19 00:00 60 09/21/19 23:30 75 16 147/41 (76) 99 09/21/19 23:25 73 17 97 60 09/21/19 23:00 147/74 09/21/19 23:00 75 18 141/52 (81) 99 09/21/19 22:30 80 19 140/41 (74) 99 09/21/19 22:00 75 18 136/44 (74) 99 09/21/19 22:00 136/44 09/21/19 21:30 79 16 139/44 (75) 99 09/21/19 21:00 137/43 09/21/19 21:00 75 18 136/44 (74) 99 09/21/19 20:30 78 18 146/46 (79) 99 09/21/19 20:00 60 09/21/19 20:00 77 09/21/19 20:00 137/43 09/21/19 20:00 99.0 75 16 137/43 (74) 99 09/21/19 20:00 Bi-pap 09/21/19 19:59 74 17 97 60 09/21/19 19:30 76 16 133/37 (69) 99 09/21/19 19:00 75 16 137/41 (73) 99 09/21/19 19:00 137/41 09/21/19 18:30 79 17 135/43 (73) 100 09/21/19 18:00 127/41 09/21/19 18:00 78 17 127/41 (69) 100 09/21/19 17:30 79 19 121/40 (67) 100 09/21/19 17:15 80 20 130/41 (70) 100 09/21/19 17:06 130/42 09/21/19 17:00 80 20 130/43 (72) 100 09/21/19 17:00 130/43 09/21/19 16:45 83 19 132/39 (70) 100 09/21/19 16:30 92 21 135/37 (69) 100 09/21/19 16:30 135/37 09/21/19 16:00 60 09/21/19 16:00 97.9 09/21/19 16:00 Bi-pap 09/21/19 16:00 94 19 154/49 (84) 100 09/21/19 16:00 154/49 09/21/19 16:00 89 09/21/19 15:30 76 21 98/34 (55) 100 09/21/19 15:14 77 21 100 60 09/21/19 15:00 154/49 09/21/19 15:00 94 19 154/49 (84) 100 09/21/19 14:30 92 18 149/44 (79) 100 09/21/19 14:00 142/48 09/21/19 14:00 91 19 142/48 (79) 99 09/21/19 13:30 91 19 144/38 (73) 99 09/21/19 13:00 91 18 146/41 (76) 99 09/21/19 13:00 146/41 09/21/19 12:30 92 18 139/44 (75) 99 09/21/19 12:00 Bi-pap 09/21/19 12:00 97.9 09/21/19 12:00 93 09/21/19 12:00 146/50 09/21/19 12:00 91 18 146/50 (82) 100 09/21/19 12:00 60 Intake and Output 09/21/19 09/22/19 19:00 07:00 Intake Total 1400.7586 ml 533.063 ml Output Total 20 ml 40 ml Balance 1380.7586 ml 493.063 ml Intake Oral 0 ml 0 ml IV Total 1120.7586 ml 533.063 ml Other 280 ml Output Urine Total 20 ml 40 ml # Bowel Movements 2 3 General Appearance: no acute distress HEENT: normocephalic Respiratory: chest wall non-tender, decreased breath sounds Cardiovascular: normal peripheral pulses Abdomen: normal bowel sounds, soft, non tender Extremities: no cyanosis Laboratory Tests 09/22/19 04:05: White Blood Count 7.2, Red Blood Count 2.80L, Hemoglobin 7.7L, Hematocrit 22.9L , Mean Corpuscular Volume 82, Mean Corpuscular Hemoglobin 27.6, Mean Corpuscular Hemoglobin Concent 33.8, Red Cell Distribution Width 18.2H, Platelet Count 201, Mean Platelet Volume 4.4L, Neutrophils (%) (Auto) , Lymphocytes (%) (Auto) , Monocytes (%) (Auto) , Eosinophils (%) (Auto) , Basophils (%) (Auto) , Prothrombin Time 12.5H, Prothromb Time International Ratio 1.1, Activated Partial Thromboplast Time 33, D-Dimer 9.31H, Sodium Level 137, Potassium Level 3.8, Chloride Level 104, Carbon Dioxide Level 18L, Anion Gap 15, Blood Urea Nitrogen 64H, Creatinine 2.8H, Estimat Glomerular Filtration Rate 16.5, Glucose Level 192H, Uric Acid 9.2H, Calcium Level 7.5L, Phosphorus Level 4.1, Magnesium Level 2.4, Total Bilirubin 0.9, Gamma Glutamyl Transpeptidase 106H, Aspartate Amino Transf (AST/SGOT) 52H, Alanine Aminotransferase (ALT/SGPT) 11L, Alkaline Phosphatase 219H, Lactate Dehydrogenase 465H, Troponin I 0.118H, C-Reactive Protein, Quantitative 14.6H, Pro-B-Type Natriuretic Peptide > 08922H, Total Protein 5.0L, Albumin 1.5L, Globulin 3.5, Albumin/Globulin Ratio 0.4L 09/22/19 10:47: Arterial Blood pH 7.246*L, Arterial Blood Partial Pressure CO2 40.2, Arterial Blood Partial Pressure O2 87.5, Arterial Blood HCO3 17.1*L, Arterial Blood Oxygen Saturation 95.2, Arterial Blood Base Excess -9.5*L, Ming Test Positive Current Medications Medications (Trade) Dose Ordered Sig/Galina Route PRN Reason Start Time Stop Time Status Last Admin Dose Admin Acetaminophen (Tylenol) 650 mg Q6H PRN GT For Headache 09/21/19 08:15 10/21/19 08:14 Acetaminophen (Tylenol) 650 mg Q6H PRN GT Temp >100.5 09/21/19 08:30 10/21/19 08:29 Acetaminophen/ Hydrocodone Bitart ([place] 10/325) 1 tab Q4H PRN GT For Severe Pain 09/21/19 08:15 09/27/19 12:42 Bisacodyl (Dulcolax) 10 mg DAILYPRN PRN RECTAL Constipation 09/21/19 06:30 12/15/19 06:29 Chlorhexidine Gluconate (Myra-Hex 2%) 1 applic DAILY@2000 TOPIC 09/20/19 20:00 12/16/19 19:59 09/21/19 20:59 Dextrose (Dextrose 50%) 25 ml Q30M PRN IV Hypoglycemia 09/20/19 12:42 12/19/19 12:41 Dextrose (Dextrose 50%) 50 ml Q30M PRN IV Hypoglycemia 09/20/19 12:42 12/19/19 12:41 Docusate Sodium (Colace) 100 mg TID PRN GT Constipation 09/21/19 08:30 10/21/19 08:29 Dopamine HCl/ Dextrose 250 ml @ 0 mls/hr Q24H IV 09/20/19 12:41 12/19/19 12:40 09/22/19 09:00 Doxycycline Monohydrate (Doxycycline Monohydrate) 100 mg EVERY 12 HOURS GT 09/21/19 09:00 09/27/19 20:59 09/22/19 08:38 Gabapentin (Neurontin) 300 mg TID GT 09/21/19 09:00 10/21/19 08:59 09/22/19 08:48 Insulin Aspart (NovoLOG) BEFORE MEALS AND HS SUBQ 09/20/19 16:30 12/15/19 07:29 Lactulose (Cephulac) 20 gm QIDPRN PRN ORAL Constipation if colace is inef 09/20/19 12:43 10/20/19 12:42 Midodrine (Pro-Amatine) 10 mg THREE TIMES A DAY GT 09/21/19 09:00 12/19/19 09:59 09/22/19 08:38 Ondansetron HCl (Zofran ODT) 4 mg Q8H PRN ORAL Nausea & Vomiting 09/20/19 12:43 10/20/19 12:42 Pantoprazole (Protonix) 40 mg EVERY 12 HOURS IVP 09/20/19 21:00 10/16/19 20:59 09/22/19 08:39 Piperacillin Sod/ Tazobactam Sod 3.375 gm/Dextrose 100 ml @ 25 mls/hr EVERY 8 HOURS IVPB 09/20/19 14:00 09/25/19 13:59 09/22/19 06:21 Sennosides (Senokot) 8.6 mg QHS GT 09/21/19 21:00 10/16/19 20:59 09/21/19 21:01 Sitagliptin Phosphate (Januvia) 25 mg ACBREAKFAST GT 09/22/19 06:30 10/22/19 06:29 Sucralfate (Carafate) 1 gm FOUR TIMES A DAY GT 09/21/19 09:00 12/15/19 20:59 09/22/19 08:39 Vancomycin HCl (Vanco pharmacy to dose) 1 ea DAILY PRN MISC Per rx protocol 09/21/19 09:00 10/16/19 12:14 Vancomycin HCl 1 gm/Dextrose 275 ml @ 183.708 mls/hr Q24H IVPB 09/20/19 17:30 09/23/19 17:29 09/21/19 17:06 Assessment/Plan Assessment/Plan IMPRESSION: 1. Right lung pneumonia. 2. Left pleural effusion. 3. History of breast carcinoma. 4. Severe anemia. S/p prbc 5. History of previous GI bleed. 6. Diabetes mellitus. 7. Hypertension. 8. bacteremia; likely contaminant 9. COVID -19 pcr x 1 negative DISCUSSION: Reviewed labs S/p PICC line. Seen by ID; on broad-spectrum antibiotics. Continue home medications. I will follow carefully. Has negative repeat COVID 19 pcr On NRBM Continue in ICU CXR worse Consider prbc Consider HD Mandi Roth Omar Syed MD Sep 22, 2019 11:40
--- NOTE | 2019-09-22 12:07 | Hematology/Onc Progress Note ---
Assessment/Plan Assessment/Plan Assessment and Recs # Metastatic breast cancer -- at this time, has metastasis to the bone, need to obtain further history, have asked nurse to provide number to oncologist, will be calling them --> medications reviewed --> currently is not on any treatment inhouse --> consider chemo once discharged # Anemia rule out Gi bleeding --> anemia panel has been reviewed --> occult blood is pending --> as per gi eval--> ferritin is 1084 --> no hemolysis is noted --> okay for iv iron x 5 days --> blood tx: 09/16 --> hgb trend: 8.9 -->9->8.2-->7.7 # Suspected 2019 novel coronavirus infection with pna --> abx: zosyn/vanc/doxycycline --> smear is noted --> 09/17 cxr Slightly worsening interstitial thickening. Worsening bilateral lower lung airspace opacity, worse on the right. 2. Worsening small bilateral pleural effusions, worse on the right. # Fever likely due to sepsis --> per id abx -> smear is noted # Azotemia --> related to dehydration --> per renal # Resp failure is on bipap # Hypernatremia # DM2 The timing of this note does not necessarily reflect the time of the patient was seen. Greatly appreciate consultation. Subjective Allergies: Coded Allergies: No Known Allergies (Unverified , 09/15/19) Subjective 09/17 s/p 1 unit blood and picc insertion , hgb improved to 8.9, iv iron and abx , no distress 09/18 no overnight events, labs pending, iv iron, nc 2l 09/19 remains at this time on zosyn and vanc, no bleeding, meds noted 09/20 remains lethargic, is on bipap, may need hd, as per renal care 09/21 icu, no acute events, nonverbal, s/p picc, hgb 7.7 Objective Objective Current Medications Medications (Trade) Dose Ordered Sig/Galina Route PRN Reason Start Time Stop Time Status Last Admin Dose Admin Acetaminophen (Tylenol) 650 mg Q6H PRN GT For Headache 09/21/19 08:15 10/21/19 08:14 Acetaminophen (Tylenol) 650 mg Q6H PRN GT Temp >100.5 09/21/19 08:30 10/21/19 08:29 Acetaminophen/ Hydrocodone Bitart (Tryon 10/325) 1 tab Q4H PRN GT For Severe Pain 09/21/19 08:15 09/27/19 12:42 Bisacodyl (Dulcolax) 10 mg DAILYPRN PRN RECTAL Constipation 09/21/19 06:30 12/15/19 06:29 Chlorhexidine Gluconate (Myra-Hex 2%) 1 applic DAILY@2000 TOPIC 09/20/19 20:00 12/16/19 19:59 09/21/19 20:59 Dextrose (Dextrose 50%) 25 ml Q30M PRN IV Hypoglycemia 09/20/19 12:42 12/19/19 12:41 Dextrose (Dextrose 50%) 50 ml Q30M PRN IV Hypoglycemia 09/20/19 12:42 12/19/19 12:41 Docusate Sodium (Colace) 100 mg TID PRN GT Constipation 09/21/19 08:30 10/21/19 08:29 Dopamine HCl/ Dextrose 250 ml @ 0 mls/hr Q24H IV 09/20/19 12:41 12/19/19 12:40 09/22/19 09:00 Doxycycline Monohydrate (Doxycycline Monohydrate) 100 mg EVERY 12 HOURS GT 09/21/19 09:00 09/27/19 20:59 09/22/19 08:38 Insulin Aspart (NovoLOG) BEFORE MEALS AND HS SUBQ 09/20/19 16:30 12/15/19 07:29 Lactulose (Cephulac) 20 gm QIDPRN PRN ORAL Constipation if colace is inef 09/20/19 12:43 10/20/19 12:42 Midodrine (Pro-Amatine) 10 mg THREE TIMES A DAY GT 09/21/19 09:00 12/19/19 09:59 09/22/19 08:38 Ondansetron HCl (Zofran ODT) 4 mg Q8H PRN ORAL Nausea & Vomiting 09/20/19 12:43 10/20/19 12:42 Pantoprazole (Protonix) 40 mg EVERY 12 HOURS IVP 09/20/19 21:00 10/16/19 20:59 09/22/19 08:39 Piperacillin Sod/ Tazobactam Sod 3.375 gm/Dextrose 100 ml @ 25 mls/hr EVERY 8 HOURS IVPB 09/20/19 14:00 09/25/19 13:59 09/22/19 06:21 Sennosides (Senokot) 8.6 mg QHS GT 09/21/19 21:00 10/16/19 20:59 09/21/19 21:01 Sitagliptin Phosphate (Januvia) 25 mg ACBREAKFAST GT 09/22/19 06:30 10/22/19 06:29 Sucralfate (Carafate) 1 gm FOUR TIMES A DAY GT 09/21/19 09:00 12/15/19 20:59 09/22/19 08:39 Vancomycin HCl (Vanco pharmacy to dose) 1 ea DAILY PRN MISC Per rx protocol 09/21/19 09:00 10/16/19 12:14 Vancomycin HCl 1 gm/Dextrose 275 ml @ 183.708 mls/hr Q24H IVPB 09/20/19 17:30 09/23/19 17:29 09/21/19 17:06 Last 24 Hour Vital Signs Date Time Temp Pulse Resp B/P (MAP) Pulse Ox O2 Delivery O2 Flow Rate FiO2 09/22/19 11:39 86 23 100 50 09/22/19 11:00 83 22 145/47 (79) 100 09/22/19 11:00 149/47 09/22/19 10:30 83 21 143/49 (80) 96 09/22/19 10:00 149/46 09/22/19 10:00 83 22 129/44 (72) 97 09/22/19 09:30 83 22 129/42 (71) 99 09/22/19 09:00 83 21 128/47 (74) 100 09/22/19 09:00 128/47 09/22/19 09:00 129/42 09/22/19 08:30 83 20 135/45 (75) 100 09/22/19 08:00 137/46 09/22/19 08:00 60 09/22/19 08:00 99.2 82 20 137/46 (76) 100 09/22/19 08:00 Bi-pap 09/22/19 07:52 82 09/22/19 07:20 83 18 100 50 09/22/19 07:00 82 20 137/46 (76) 100 09/22/19 07:00 128/42 09/22/19 06:30 82 20 126/36 (66) 100 09/22/19 06:00 80 16 119/45 (69) 100 09/22/19 06:00 119/38 09/22/19 05:30 84 19 119/39 (65) 100 09/22/19 05:00 82 17 120/36 (64) 100 09/22/19 05:00 119/39 09/22/19 04:30 80 18 119/43 (68) 100 09/22/19 04:00 Bi-pap 09/22/19 04:00 60 09/22/19 04:00 98.6 62 17 126/36 (66) 100 09/22/19 04:00 121/39 09/22/19 04:00 71 09/22/19 03:30 69 16 119/40 (66) 100 09/22/19 03:28 68 18 100 50 09/22/19 03:00 82 17 108/43 (64) 100 09/22/19 03:00 86/42 09/22/19 02:30 70 17 113/39 (63) 100 09/22/19 02:00 82 17 126/36 (66) 100 09/22/19 02:00 116/38 09/22/19 01:30 86 17 116/36 (62) 100 09/22/19 01:00 109/42 09/22/19 01:00 75 17 110/40 (63) 100 09/22/19 00:30 80 17 126/36 (66) 100 09/22/19 00:00 99.0 70 16 127/40 (69) 100 09/22/19 00:00 125/40 09/22/19 00:00 69 09/22/19 00:00 Bi-pap 09/22/19 00:00 60 09/21/19 23:30 75 16 147/41 (76) 99 09/21/19 23:25 73 17 97 60 09/21/19 23:00 147/74 09/21/19 23:00 75 18 141/52 (81) 99 09/21/19 22:30 80 19 140/41 (74) 99 09/21/19 22:00 75 18 136/44 (74) 99 09/21/19 22:00 136/44 09/21/19 21:30 79 16 139/44 (75) 99 09/21/19 21:00 137/43 09/21/19 21:00 75 18 136/44 (74) 99 09/21/19 20:30 78 18 146/46 (79) 99 09/21/19 20:00 60 09/21/19 20:00 77 09/21/19 20:00 137/43 09/21/19 20:00 99.0 75 16 137/43 (74) 99 09/21/19 20:00 Bi-pap 09/21/19 19:59 74 17 97 60 09/21/19 19:30 76 16 133/37 (69) 99 09/21/19 19:00 75 16 137/41 (73) 99 09/21/19 19:00 137/41 09/21/19 18:30 79 17 135/43 (73) 100 09/21/19 18:00 127/41 09/21/19 18:00 78 17 127/41 (69) 100 09/21/19 17:30 79 19 121/40 (67) 100 09/21/19 17:15 80 20 130/41 (70) 100 09/21/19 17:06 130/42 09/21/19 17:00 80 20 130/43 (72) 100 09/21/19 17:00 130/43 09/21/19 16:45 83 19 132/39 (70) 100 09/21/19 16:30 92 21 135/37 (69) 100 09/21/19 16:30 135/37 09/21/19 16:00 60 09/21/19 16:00 97.9 09/21/19 16:00 Bi-pap 09/21/19 16:00 94 19 154/49 (84) 100 09/21/19 16:00 154/49 09/21/19 16:00 89 09/21/19 15:30 76 21 98/34 (55) 100 09/21/19 15:14 77 21 100 60 09/21/19 15:00 154/49 09/21/19 15:00 94 19 154/49 (84) 100 09/21/19 14:30 92 18 149/44 (79) 100 09/21/19 14:00 142/48 09/21/19 14:00 91 19 142/48 (79) 99 09/21/19 13:30 91 19 144/38 (73) 99 09/21/19 13:00 91 18 146/41 (76) 99 09/21/19 13:00 146/41 09/21/19 12:30 92 18 139/44 (75) 99 09/21/19 12:00 Bi-pap 09/21/19 12:00 97.9 09/21/19 12:00 93 09/21/19 12:00 146/50 09/21/19 12:00 91 18 146/50 (82) 100 09/21/19 12:00 60 09/21/19 11:30 92 17 148/43 (78) 100 09/21/19 11:28 89 16 100 60 09/21/19 11:15 92 16 150/59 (89) 100 09/21/19 11:00 156/47 09/21/19 11:00 92 16 156/47 (83) 100 09/21/19 10:45 93 17 156/46 (82) 100 09/21/19 10:30 92 17 144/38 (73) 100 09/21/19 10:15 95/35 09/21/19 10:15 83 16 95/35 (55) 100 09/21/19 10:00 75 16 86/45 (59) 100 09/21/19 10:00 76 16 96/45 (62) 100 09/21/19 10:00 86/45 09/21/19 09:45 84 16 97/34 (55) 100 09/21/19 09:30 76 17 99/36 (57) 100 09/21/19 09:15 99/36 09/21/19 09:15 84 16 99/36 (57) 100 09/21/19 09:00 99/36 09/21/19 09:00 84 16 118/38 (64) 100 09/21/19 08:30 88 16 99/36 (57) 100 09/21/19 08:00 Bi-pap 09/21/19 08:00 87 17 118/38 (64) 100 09/21/19 08:00 72 09/21/19 08:00 100 09/21/19 08:00 118/38 09/21/19 08:00 98.8 09/21/19 07:30 86 17 111/43 (65) 100 09/21/19 07:24 89 16 100 80 09/21/19 07:00 87 16 115/40 (65) 100 09/21/19 07:00 115/40 09/21/19 06:00 90 16 110/45 (66) 100 09/21/19 06:00 117/41 09/21/19 05:30 87 16 117/41 (66) 100 09/21/19 05:00 106/39 09/21/19 05:00 118 14 127/37 (67) 100 09/21/19 04:30 125 14 125/37 (66) 100 09/21/19 04:00 15.0 100 09/21/19 04:00 112 09/21/19 04:00 104/39 09/21/19 04:00 98.8 116 14 122/47 (72) 100 09/21/19 04:00 Bi-pap 15.0 09/21/19 03:30 120 14 116/40 (65) 100 09/21/19 03:00 116 14 127/37 (67) 100 09/21/19 03:00 123/41 09/21/19 02:50 91 20 100 80 09/21/19 02:30 120 14 122/40 (67) 100 09/21/19 02:00 110 14 130/45 (73) 100 09/21/19 02:00 116/36 09/21/19 01:30 127 14 127/37 (67) 100 09/21/19 01:00 114 14 143/40 (74) 100 09/21/19 01:00 143/39 09/21/19 00:30 115 14 143/40 (74) 100 09/21/19 00:00 15.0 100 09/21/19 00:00 114 14 106/40 (62) 100 09/21/19 00:00 Bi-pap 15.0 09/21/19 00:00 98.6 116 14 136/60 (85) 100 09/21/19 00:00 127/37 09/21/19 00:00 114 09/20/19 23:30 110 14 116/34 (61) 100 09/20/19 23:16 89 18 100 100 09/20/19 23:00 114 14 100/26 (50) 100 09/20/19 23:00 141/28 09/20/19 22:30 112 14 94/34 (54) 100 09/20/19 22:00 109 14 110/41 (64) 100 09/20/19 22:00 90/40 09/20/19 21:45 98 14 100/34 (56) 100 09/20/19 21:30 80 14 94/34 (54) 100 09/20/19 21:15 82 14 88/0 (29) 100 09/20/19 21:00 88/32 09/20/19 21:00 82 14 94/34 (54) 100 09/20/19 20:45 83 16 86/40 (55) 100 09/20/19 20:30 85 14 98/40 (59) 100 09/20/19 20:00 Bi-pap 15.0 09/20/19 20:00 15.0 100 09/20/19 20:00 98.6 82 18 96/40 (58) 100 09/20/19 20:00 86 09/20/19 19:45 95 14 94/34 (54) 100 09/20/19 19:30 90 16 90/40 (57) 100 09/20/19 19:21 86 15 100 100 09/20/19 19:15 90 14 86/34 (51) 100 09/20/19 19:00 97/33 09/20/19 19:00 86 16 94/34 (54) 100 09/20/19 18:09 15.0 100 09/20/19 18:00 90 14 94/34 (54) 100 09/20/19 18:00 106/56 09/20/19 17:00 102/52 09/20/19 17:00 87 18 90/42 (58) 100 09/20/19 16:21 98/33 09/20/19 16:00 98.6 93 18 97/43 (61) 100 09/20/19 16:00 15.0 100 09/20/19 16:00 97 09/20/19 16:00 Bi-pap 15.0 09/20/19 15:09 93 18 98/33 (54) 100 09/20/19 14:40 94 17 100 100 09/20/19 14:00 93 18 86/63 (71) 100 09/20/19 14:00 15.0 100 09/20/19 13:00 95 20 103/30 (54) 98 09/20/19 12:41 83/29 Intake and Output 09/21/19 09/22/19 19:00 07:00 Intake Total 1400.7586 ml 533.063 ml Output Total 20 ml 40 ml Balance 1380.7586 ml 493.063 ml Intake Oral 0 ml 0 ml IV Total 1120.7586 ml 533.063 ml Other 280 ml Output Urine Total 20 ml 40 ml # Bowel Movements 2 3 Labs Test 09/19/19 16:28 09/20/19 08:13 09/20/19 09:45 09/20/19 20:02 Vancomycin Level Trough 15.3 ug/mL (5.0-12.0) Arterial Blood pH 7.094 (7.350-7.450) 7.172 (7.350-7.450) Arterial Blood Partial Pressure CO2 64.5 mmHg (35.0-45.0) 47.3 mmHg (35.0-45.0) Arterial Blood Partial Pressure O2 138.7 mmHg (75.0-100.0) 219.3 mmHg (75.0-100.0) Arterial Blood HCO3 19.3 mmol/L (22.0-26.0) 16.9 mmol/L (22.0-26.0) Arterial Blood Oxygen Saturation 98.1 % (95-100) 99.4 % (95-100) Arterial Blood Base Excess -10.5 (-2-2) -11 (-2-2) Ming Test Positive Positive White Blood Count 10.8 K/UL (4.8-10.8) Red Blood Count 3.29 M/UL (4.20-5.40) Hemoglobin 9.0 G/DL (12.0-16.0) Hematocrit 27.6 % (37.0-47.0) Mean Corpuscular Volume 84 FL (80-99) Mean Corpuscular Hemoglobin 27.4 PG (27.0-31.0) Mean Corpuscular Hemoglobin Concent 32.6 G/DL (32.0-36.0) Red Cell Distribution Width 18.4 % (11.6-14.8) Platelet Count 249 K/UL (150-450) Mean Platelet Volume 5.2 FL (6.5-10.1) Neutrophils (%) (Auto) 80.3 % (45.0-75.0) Lymphocytes (%) (Auto) 12.3 % (20.0-45.0) Monocytes (%) (Auto) 5.2 % (1.0-10.0) Eosinophils (%) (Auto) 0.0 % (0.0-3.0) Basophils (%) (Auto) 2.1 % (0.0-2.0) Sodium Level 141 MMOL/L (136-145) Potassium Level 4.7 MMOL/L (3.5-5.1) Chloride Level 107 MMOL/L (98-107) Carbon Dioxide Level 17 MMOL/L (21-32) Anion Gap 17 mmol/L (5-15) Blood Urea Nitrogen 51 mg/dL (7-18) Creatinine 1.8 MG/DL (0.55-1.30) Estimat Glomerular Filtration Rate 27.6 mL/min (>60) Glucose Level 194 MG/DL (74-106) Calcium Level 8.1 MG/DL (8.5-10.1) Phosphorus Level 4.9 MG/DL (2.5-4.9) Magnesium Level 2.4 MG/DL (1.8-2.4) Total Bilirubin 0.8 MG/DL (0.2-1.0) Aspartate Amino Transf (AST/SGOT) 79 U/L (15-37) Alanine Aminotransferase (ALT/SGPT) 13 U/L (12-78) Alkaline Phosphatase 255 U/L (46-116) Total Protein 5.9 G/DL (6.4-8.2) Albumin 1.6 G/DL (3.4-5.0) Globulin 4.3 g/dL Albumin/Globulin Ratio 0.4 (1.0-2.7) Test 09/21/19 03:45 09/21/19 07:56 09/22/19 04:05 09/22/19 10:47 White Blood Count 9.2 K/UL (4.8-10.8) 7.2 K/UL (4.8-10.8) Red Blood Count 3.01 M/UL (4.20-5.40) 2.80 M/UL (4.20-5.40) Hemoglobin 8.2 G/DL (12.0-16.0) 7.7 G/DL (12.0-16.0) Hematocrit 25.0 % (37.0-47.0) 22.9 % (37.0-47.0) Mean Corpuscular Volume 83 FL (80-99) 82 FL (80-99) Mean Corpuscular Hemoglobin 27.4 PG (27.0-31.0) 27.6 PG (27.0-31.0) Mean Corpuscular Hemoglobin Concent 33.0 G/DL (32.0-36.0) 33.8 G/DL (32.0-36.0) Red Cell Distribution Width 17.7 % (11.6-14.8) 18.2 % (11.6-14.8) Platelet Count 230 K/UL (150-450) 201 K/UL (150-450) Mean Platelet Volume 5.1 FL (6.5-10.1) 4.4 FL (6.5-10.1) Neutrophils (%) (Auto) 82.5 % (45.0-75.0) % (45.0-75.0) Lymphocytes (%) (Auto) 11.0 % (20.0-45.0) % (20.0-45.0) Monocytes (%) (Auto) 5.4 % (1.0-10.0) % (1.0-10.0) Eosinophils (%) (Auto) 0.1 % (0.0-3.0) % (0.0-3.0) Basophils (%) (Auto) 1.0 % (0.0-2.0) % (0.0-2.0) Sodium Level 140 MMOL/L (136-145) 137 MMOL/L (136-145) Potassium Level 4.0 MMOL/L (3.5-5.1) 3.8 MMOL/L (3.5-5.1) Chloride Level 106 MMOL/L (98-107) 104 MMOL/L (98-107) Carbon Dioxide Level 18 MMOL/L (21-32) 18 MMOL/L (21-32) Anion Gap 16 mmol/L (5-15) 15 mmol/L (5-15) Blood Urea Nitrogen 55 mg/dL (7-18) 64 mg/dL (7-18) Creatinine 2.3 MG/DL (0.55-1.30) 2.8 MG/DL (0.55-1.30) Estimat Glomerular Filtration Rate 20.8 mL/min (>60) 16.5 mL/min (>60) Glucose Level 219 MG/DL (74-106) 192 MG/DL (74-106) Calcium Level 7.5 MG/DL (8.5-10.1) 7.5 MG/DL (8.5-10.1) Phosphorus Level 4.6 MG/DL (2.5-4.9) 4.1 MG/DL (2.5-4.9) Total Bilirubin 0.8 MG/DL (0.2-1.0) 0.9 MG/DL (0.2-1.0) Aspartate Amino Transf (AST/SGOT) 74 U/L (15-37) 52 U/L (15-37) Alanine Aminotransferase (ALT/SGPT) 14 U/L (12-78) 11 U/L (12-78) Alkaline Phosphatase 236 U/L (46-116) 219 U/L (46-116) Total Protein 5.7 G/DL (6.4-8.2) 5.0 G/DL (6.4-8.2) Albumin 1.9 G/DL (3.4-5.0) 1.5 G/DL (3.4-5.0) Globulin 3.8 g/dL 3.5 g/dL Albumin/Globulin Ratio 0.5 (1.0-2.7) 0.4 (1.0-2.7) Arterial Blood pH 7.256 (7.350-7.450) 7.246 (7.350-7.450) Arterial Blood Partial Pressure CO2 35.1 mmHg (35.0-45.0) 40.2 mmHg (35.0-45.0) Arterial Blood Partial Pressure O2 184.0 mmHg (75.0-100.0) 87.5 mmHg (75.0-100.0) Arterial Blood HCO3 15.3 mmol/L (22.0-26.0) 17.1 mmol/L (22.0-26.0) Arterial Blood Oxygen Saturation 98.7 % (95-100) 95.2 % (95-100) Arterial Blood Base Excess -10.9 (-2-2) -9.5 (-2-2) Ming Test Positive Positive Prothrombin Time 12.5 SEC (9.30-11.50) Prothromb Time International Ratio 1.1 (0.9-1.1) Activated Partial Thromboplast Time 33 SEC (23-33) D-Dimer 9.31 mg/L FEU (0.00-0.49) Uric Acid 9.2 MG/DL (2.6-7.2) Magnesium Level 2.4 MG/DL (1.8-2.4) Gamma Glutamyl Transpeptidase 106 U/L (5-85) Lactate Dehydrogenase 465 U/L (81-234) Troponin I 0.118 ng/mL (0.000-0.056) C-Reactive Protein, Quantitative 14.6 mg/dL (0.00-0.90) Pro-B-Type Natriuretic Peptide > 05743 pg/mL (0-125) Height (Feet): 5 Height (Inches): 4.00 Weight (Pounds): 141 Objective Physical Exam: Vitals: reviewed General: NAD HEENT: nc, at Neck: supple Chest: clear breath sounds bilaterally,bipap++ Cardiovascular: RRR, no s3, s4 Abdomen: soft, nontender, nd Extremities: no cce, normal range of motion +arm swelling bilaterally, picc+ Neuro: alert and oriented Marito Reza MD Sep 22, 2019 12:07
--- NOTE | 2019-09-22 14:05 | NUR ---
NURSE NOTES: O2 sat 80's% on Bi-pap 100%. RR 20's. ABG drawn again and left message to Dr Mckee for the critical result. Awaiting call back for new orders.
--- NOTE | 2019-09-22 14:15 | NUR ---
NURSE NOTES: pRBC transfusion started. Cosigned with Yosef Vail RN. Pre-transfusion temp 97.5, HR 86, BP 106/21. Will continue to monitor.
--- NOTE | 2019-09-22 15:20 | NUR ---
NURSE NOTES: Called and left a message to Dr Mckee for the second time regarding AB result and pt's current condition. Awaiting call back for new orders.
--- NOTE | 2019-09-22 15:46 | NUR ---
NURSE NOTES: Dr Mckee called back. Updated him with pt's current condition including ABG result. He stated that he will talk to patient's sister on the phone regarding code status first and call ICU back. RT getting ready for intubation at bedside. Addendum: 09/22/19 at 1643 by MYRON RESTREPO RN RN NURSE NOTES: Dr Mckee called back. Updated him with pt's current condition including ABG result. He ordered to intubate patient at 1534 and called back and stated that he will talk to patient's sister on the phone regarding code status first and call ICU back. RT getting ready for intubation at bedside.
--- NOTE | 2019-09-22 15:55 | NUR ---
NURSE NOTES: Dr Mckee called back. Sister wanted to changed code status to DNR/DNI, No dialysis, comfort cart only as per Dr Mckee. Notified RT.
--- NOTE | 2019-09-22 16:15 | NUR ---
NURSE NOTES: Blood transfusion started. Cosigned blood with Yosef Vail RN. Pre-transfusion temp 97.5, HR 86, BP 106/21. Will continue to monitor.
--- NOTE | 2019-09-22 16:51 | NUR ---
NURSE NOTES: O2 sat 90-92% on Bi-pap 15/5, 100%. Pt is on on Dopamine 1 mcg/kg/min. BP 92/25. Will keep the same rate.
--- NOTE | 2019-09-22 17:04 | NUR ---
NURSE NOTES: Spoke with pharmacy. Will administer Zosyn after blood transfusion.
--- NOTE | 2019-09-22 17:45 | NUR ---
NURSE NOTES: Titrate up Dopamine drip since HR slowed down to 30's.
[2019-09-22] MEDS ORDERED: Piperacillin/Tazobactam 3.375 GM in NS 110 ML IVPB SCH (18:00)
[2019-09-22] MEDS ORDERED: D5W 275ml ONE ×2 (18:09)
[2019-09-22] MEDS ORDERED: NS 500ML ONE (18:09)
[2019-09-22] MEDS ORDERED: NS 275ml ONE ×2 (18:09)
[2019-09-22] MEDS ORDERED: 1/2 NS 1000ml IV ONE (18:09)
[2019-09-22] MEDS ORDERED: Tubing IV Blood Pump IV ONE (18:09)
[2019-09-22] MEDS ORDERED: Tubing IV Secondary IV ONE ×3 (18:09)
--- NOTE | 2019-09-22 18:10 | NUR ---
NURSE NOTES: Pt shereen down. Patient stopped breathing and became asystole at 1810. Notified doctors and families. No belonging noted. Post mortem care done. Called [facility] living manager's case.
--- NOTE | 2019-09-22 18:44 | NUR ---
PRONOUNCEMENT: No Code. Called to pronounce patient. Absence of spontaneous respirations, no cardiac or breath sounds on auscultation. Pupils fixed and dilated. No carotid pulse or chest movement. Patient at 1810. DR zeinab SABA . Family was notified at [phone] -SISTER/YOVANI MONGE.
--- NOTE | 2019-09-23 11:37 | Discharge Summary ---
Discharge Summary Discharge Summary _ SUMMARY DATE OF ADMISSION: 09/15/2019 DATE OF EXPIRATION: 09/22/2019 REASON FOR ADMISSION: 74 years old female, resident of [facility] facility, with past medical history of metastatic breast cancer, profound anemia related to bleeding polyp in duodenum, pathological fracture of the humerus, status post open reduction internal fixation, diabetes mellitus, hypertension, seizure disorder, presented for worsening anemia and altered mental status. Upon evaluation patient was febrile, tachycardic, hypotensive. Laboratory work-up revealed leukocytosis ,hemoglobin 5.2 ,hematocrit 16.9, platelet count 251. Lactic acid 3.2. CRP 29.6 Sodium 148, chloride 112. BUN 82, creatinine 1.3. Glucose 222. AST 254, ALT 23 Troponin 0.022 Albumin 1.9 Urinalysis revealed pyuria ,+1 protein ,+1 leukocyte esterase Chest x-ray demonstrated bilateral, left greater than right, interstitial and airspace disease. In the emergency department patient was swabbed for COVID-19 , pancultutred, started on gentle IV hydration , supplemental oxygen, broad spectrum antibiotic. Patient received antipyretic. Patient typed and crossed and started on blood transfusion , and admitted for further management. CONSULTANTS: ID specialist Dr. Lund GI specialist Dr. Gutiérrez pharmaceutical physician Dr. Basilio loan teller/oncologist Dr. Reza [facility] COURSE: Patient admitted to monitored floor. Patient was kept in isolation. SARS COV 2 by PCR on 09/14 and 09/17 was not detected. Blood culture revealed Staph hominis. Urine culture revealed no evidence of growth. Repeated blood cultures were negative. Initial positive blood culture were most likely contaminant. Patient received antibiotic as per ID specialist recommendation. Supplemental oxygen provided and titrated to keep pulse oximetry above 92%. Pulmonary toilet provided. Renal parameters electrolytes were closely monitored , electrolytes corrected as needed, and nephrotoxic's were avoided. Acute renal failure was most likely prerenal azotemia due to GI bleeding. Hypernatremia was also most likely secondary to dehydration. Sodium stabilized Stool for occult blood was positive. Patient had recent EGD and colonoscopy at [facility] , which was negative. Tube feeding was on hold due to significant decline and risk for aspiration. Patient was not a candidate for endoscopy, given respiratory failure and overall poor prognosis. Patient undergone transfusion of total of 5 units of packed red blood cells , but hemoglobin continued to trend down. Patient developed signs of respiratory distress . On 09/19 patient required 100% nonrebreathing mask. Patient was followed-up with ABG , and was placed on the BiPAP . Settings titrated based on ABG results. Patient was followed-up with chest x-ray. Patient condition continued to deteriorate. In addition to respiratory failure, she also developed hypotension and required initiation of pressor. Dopamine started. Hemodynamic status was closely monitored to keep mean arterial blood pressure above 65. Albumin boluses provided as needed as per pharmaceutical physician . Patient also started on midodrine. Serum creatinine was rising , and urine output was low. N Per pharmaceutical physician patient may need dialysis if her status changes. CODE STATUS was changed to DNR/DNI after conversation with family on 09/21 afternoon. Unfortunately patient condition was rapidly deteriorating. Patient was pronounced at 18:10 on 09/22/19. Cause of cardiopulmonary arrest6/ FINAL DIAGNOSES: Sepsis with shock Acute hypoxemic respiratory failure failure Pneumonia Anemia GI bleeding with history of bleeding polyp in duodenum Metastatic breast cancer with pathological fracture Acute kidney injury Hypernatremia Diabetes mellitus History of hypertension Seizure disorder Suspected COVID-19 infection - ruled out I have been assigned to dictate discharge summary for this account. I was not involved in the patient's management. Shyanne Kendall NP Sep 23, 2019 11:37
--- NOTE | 2019-09-23 15:47 | NUR ---
*-* INSURANCE *-* DISCHARGE SUMMARY HAS BEEN FAXED TO: [facility] [phone] FAX [phone] Work
== END 2019-09-22 18:10 | disposition expired | DRG 871 ==
LOC: EDBD 15:06 → EMR 15:39 → 2W 16:55 → EDBEDREQ 19:53 → 2W 09-16 03:35 → ICU 09-20 10:40
PROC: 30233N1 Transfusion of Nonautologous Red Blood Cells into Peripheral Vein, Percutaneous Approach (ICD-10-PCS; principal; 2019-09-15)
PROC: 05H333Z Insertion of Infusion Device into Right Innominate Vein, Percutaneous Approach (ICD-10-PCS; 2019-09-17)
PROC: 5A1945Z Respiratory Ventilation, 24-96 Consecutive Hours (ICD-10-PCS; 2019-09-21)
DX: A41.9 Sepsis, unspecified organism (principal); J18.9 Pneumonia, unspecified organism; J96.90 Respiratory failure, unspecified, unspecified whether with hypoxia or hypercapnia; R65.21 Severe sepsis with septic shock; K92.2 Gastrointestinal hemorrhage, unspecified; N39.0 Urinary tract infection, site not specified; N17.9 Acute kidney failure, unspecified; C79.89 Secondary malignant neoplasm of other specified sites; E87.0 Hyperosmolality and hypernatremia; E87.1 Hypo-osmolality and hyponatremia; Z20.828 Contact with and (suspected) exposure to other viral communicable diseases; D64.9 Anemia, unspecified; R56.9 Unspecified convulsions; E11.9 Type 2 diabetes mellitus without complications; Z85.3 Personal history of malignant neoplasm of breast; M84.529 Pathological fracture in neoplastic disease, unspecified humerus; C50.912 Malignant neoplasm of unspecified site of left female breast; Z66 Do not resuscitate; D50.0 Iron deficiency anemia secondary to blood loss (chronic); E88.09 Other disorders of plasma-protein metabolism, not elsewhere classified; G40.909 Epilepsy, unspecified, not intractable, without status epilepticus
CPT/HCPCS: 36415; 36569; 36600; 71045; 74018; 76937; 80053; 80061; 80202; 81003; 82270; 82550; 82553; 82607; 82728; 82746; 82803; 82962; 82977; 83036; 83540; 83550; 83605; 83615; 83735; 83880; 84100; 84300; 84443; 84484; 84550; 85007; 85025; 85379; 85610; 85730; 86140; 86850; 86900; 86901; 86920; 87040; 87081; 87086; 87181; 87635; 93005; 94660; 94664; 96365; 96368; 96375; 99291; J1815; J7030